=== PATIENT | male | born 1960 | race Caucasian/White ===

== ENCOUNTER → 2018-08-09 06:11 | Outpatient (CLI) | payer OTHER, SELFPAY ==
--- NOTE | 2018-08-09 14:29 | STRESSREP_ITS ---
Stress Test Report Pharmacologic myocardial perfusion stress test. 57-year-old male with a history of chest pain. Stress protocol: Resting EKG demonstrates sinus bradycardia with a rate of 56 bpm normal intervals are noted resting blood pressure 128/84 mmHg. 0.4 mg of regadenoson was infused per usual protocol followed by rapid intravenous saline flush i njection continuous EKG monitoring was performed. Patient maintained sinus rhythm throughout the recording. The maximum heart rate attained was 88 bpm which was 54% of maximum predicted heart rate the maximum workload attained was 1 metabolic equivalent. At rest there were no ST or T wave changes noted suggest ischemia at peak infusion nose nonspecific ST-T wave changes were noted the resting blood pressure 128/84. Myocardial perfusion protocol. 14.6 mCi of technetium 99m sestamibi was injected at rest. 0.4 mg of regadenoson was infused per usual protocol peak infusion 44.5 mCi of technetium 99m sestamibi was injected stress images were obtained stress and rest images were reconstructed and compared in the short axis vertical long horizontal long axis. Gated images were also obtained per Perfusion SPECT analysis: Review of the stress images demonstrate normal uptake of tracer noted in all areas of the myocardium. The resting images similarly demonstrate normal uptake of tracer noted in all areas of myocardium. Gated SPECT analysis: The gated ejection fraction is 68%. Conclusion: Normal pharmacologic myocardial perfusion stress test. Preserved ejection fraction.
== END ==
PROVIDERS: Family Provider Family Medicine; PCP Family Medicine; Referring Provider Family Medicine; Visit Provider Family Medicine
DX: R07.9 Chest pain, unspecified (principal)
CPT/HCPCS: 78452; 93017; A9500; A4216; J2785

== ENCOUNTER → 2018-08-18 17:09 | Outpatient (CLI) | payer OTHER, SELFPAY ==
[2016-04-10 07:18] VITALS: BMI 44.9
--- NOTE | 2018-08-18 17:12 | RAD_ITS ---
STUDY: X-RAY - RIGHT KNEE REASON FOR EXAM: Male, 57 years old. Arthritis. TECHNIQUE: 4 view(s) of the knee, 2 of which are labeled as weightbearing. COMPARISON: 4 views of the right knee October 20, 2016, 2 of which are labeled as weightbearing FINDINGS: Grossly stable mild periarticular spurring of the femoral condyles. Stable mild periarticular spurring of the tibial plateaus as well as mild spurring of the tibial spines. There is stable mild subarticular sclerosis of the medial tibial plateau. Normal visualized proximal fibula. There is stable periventricular spurring at the base of the patella, while periarticular spurring at the apex may be mildly progressed today. There is no demonstrated destructive osseous lesion or acute fracture. There is progression of degenerative arthrosis in the medial femorotibial compartment with moderately severe joint space narrowing. Normal lateral femorotibial compartment. There is mild to moderate degenerative arthrosis of the patellofemoral articulation, also progressed from previous exam. There is no demonstrated joint effusion. The soft tissue structures are unremarkable. RAD/Knee 4 or More Views IMPRESSION: Tricompartmental degenerative arthrosis of the right knee, with particular progression of narrowing in the medial femorotibial compartment since 2017. Electronically Signed: Justin Rankin MD at 18:35 EST , Service support ,
== END ==
PROVIDERS: Family Provider Family Medicine; PCP Family Medicine; Referring Provider Family Medicine; Visit Provider Family Medicine
DX: M19.90 Unspecified osteoarthritis, unspecified site (principal)
CPT/HCPCS: 73564

== ENCOUNTER → 2019-02-15 17:47 | Outpatient (CLI) | payer OTHER, SELFPAY ==
[2019-02-15 17:49] LABS: Bacteria 0 SEEN /hpf (None Seen); Squamous Epithelial Cells - UA 0 SEEN /hpf (0-5); White Blood Cells 0 SEEN /hpf (0-5)
[2019-02-15 18:12] LABS: Color, Urine Yellow (Yellow); Glucose, Dipstick Normal (Normal); Ketone-Dipstick 5 mg/dl (Negative); Leukocyte Esterase-Dipstick Negative /ul (Negative); Nitrite-Dipstick Negative (Negative); Occult Blood-Urine 150 /ul (Negative); Protein-Dipstick 30 mg/dl (Negative); Urine Bilirubin Dipstick Negative (Negative); Urine Clarity Clear (Clear); Urine Urobilinogen Normal (Normal)
[2019-02-15 18:23] LABS: Mucous, Urine 1+ /hpf (<or=2+); Red Blood Cells-Urine 0-5 SEEN /hpf (0-5)
== END ==
PROVIDERS: Family Provider Family Medicine; PCP Family Medicine; Referring Provider Family Medicine; Visit Provider Family Medicine
DX: R31.9 Hematuria, unspecified (principal)
CPT/HCPCS: 81001; 87086; 87088

== ENCOUNTER → 2019-02-17 05:49 | Outpatient (CLI) | payer OTHER, SELFPAY ==
[2016-04-10 07:18] VITALS: BMI 44.9
[2019-02-17 07:30] LABS: Erythrocyte Sedimentation Rate 8 mm/hr (0-20)
[2019-02-17 07:31] LABS: Absolute Lymphocyte Count 1.47 X10^3/uL (0.83-4.51); Absolute Neutrophil Count 2.9 X10^3/uL (2.0-7.7); Basophil# 0.05 X10^3/uL; Eosinophil# 0.11 X10^3/uL; Eosinophils% 2.1 % (0-5); Hematocrit 43.5 % (40-54); Hemoglobin 15.3 g/dL (13.0-16.5); Lymphocyte # 1.47 X10^3/ul (4.0); Lymphocyte % 28.2 % (19-41); Mean Corp Hgb Conc 35.2 g/dL (32-36); Mean Corpuscular Hgb 30.5 pg (27.0-32.0); Mean Corpuscular Volume 86.8 fL (80-94); Mean Platelet Vol. 9.6 fl (6.2-12.0); Monocyte# 0.63 X10^3/uL; Monocyte% 12.1 % (0-10); NRBC Flagged by Analyzer 0 % (0-5); Neutrophil # 2.93 X10^3/uL (2.7-7.7); Neutrophil % 56.2 % (47-70); Platelet Count 233 K/mm3 (150-450); RBC Distribution Width CV 12.6 % (11.6-14.6); RBC Distribution Width SD 39.9 fl (35.1-43.9); Red Blood Count 5.01 M/mm3 (4.6-6.2); White Blood Count 5.2 K/mm3 (4.4-11.0)
[2019-02-17 07:47] LABS: ALB/GLOB Ratio 0.9 RATIO (0.9-2.4); AST(SGOT) 24 U/L (15-37); Alanine Aminotransfer ALT/SGPT 48 U/L (16-61); Albumin, Serum 3.7 g/dL (3.2-5.0); Alkaline Phosphatase 56 U/L (45-117); Anion Gap 8 (5-15); BUN 15 mg/dL (7-18); BUN/Creat Ratio 17.8 RATIO (10-20); Calcium,Total 9.1 mg/dL (8.5-10.1); Chloride 109 mmol/L (98-107); Cholesterol 156 mg/dL (200); Creatinine, Serum 0.84 mg/dL (0.70-1.30); EST Glomerular Filtration Rate 99 mL/min (>60); Est Glom Filt Rate - Afr Amer 120 mL/min (>60); Globulin 3.9 g/dL (2.2-4.2); Glucose 118 mg/dL (74-106); High Density Lipoprotein 41 mg/dL; Iron 68 ug/dL (65-175); PSA,Total - Annual Screen 2.02 ng/mL (0.00-4.00); Potassium 4.4 mmol/L (3.5-5.1); Protein, Total 7.6 g/dL (6.4-8.2); Sodium Level 142 mmol/L (136-145); Thyroid Stim Hormone (TSH) 1.46 uIU/mL (0.358-3.74); Triglycerides 82 mg/dL; Very Low Density Lipoprotein 16 mg/dL (5-40)
[2019-02-17 08:27] LABS: Vitamin B12 381 pg/mL (211-911); Vitamin D,25 Hydroxy 22.5 ng/mL (29.95-100.01)
== END ==
PROVIDERS: Family Provider Family Medicine; PCP Family Medicine; Referring Provider Family Medicine; Visit Provider Family Medicine
DX: E11.9 Type 2 diabetes mellitus without complications (principal); R53.83 Other fatigue; Z12.5 Encounter for screening for malignant neoplasm of prostate
CPT/HCPCS: 36415; 80053; 80061; 82306; 82607; 83540; 84153; 84403; 84443; 85025; 85652; G0103

== ENCOUNTER → 2019-04-04 16:35 | Outpatient (CLI) | payer OTHER, SELFPAY ==
[2016-04-10 07:18] VITALS: BMI 44.9
--- NOTE | 2019-04-04 16:38 | RAD_ITS ---
STUDY: X-RAY CHEST REASON FOR EXAM: Male, 58 years old. Chest pain TECHNIQUE: PA and lateral views of the chest COMPARISON: None. FINDINGS: The lungs are clear. There are no pleural effusions. There is no pneumothorax. The heart is normal in size. The visualized osseous structures are within normal limits. RAD/Chest PA and Lateral IMPRESSION: No acute thoracic pathology. Electronically Signed: El Lambert, at 17:06 EDT Tel , Service support ,
== END ==
PROVIDERS: Family Provider Family Medicine; PCP Family Medicine; Referring Provider Family Medicine; Visit Provider Family Medicine
DX: R07.9 Chest pain, unspecified (principal)
CPT/HCPCS: 71046

== ENCOUNTER 2019-10-15 07:12 | Emergency (ER) | payer OTHER, SELFPAY ==
[2019-10-15 07:13] VITALS: BP 140/91; PULSE 86; RESP 14; TEMP 36.8; O2SAT 96; BMI 46.0
[2019-10-15 07:22] VITALS: O2SAT 96
--- NOTE | 2019-10-15 07:33 | RAD_ITS ---
STUDY: X-RAY CHEST REASON FOR EXAM: Male, 59 years old. DRY COUGH X 3 WEEKS, PAINFUL CHEST, FEVER TECHNIQUE: Single AP portable view of the chest. COMPARISON: April 04, 2019. FINDINGS: There are monitoring devices. The lungs are clear and expanded. There is no demonstrated pleural abnormality. Normal size heart. Normal mediastinum and alessandra. Normal visualized pulmonary arteries. Normal visualized aortic arch and descending thoracic aorta. There are diffuse degenerative changes of the visualized thoracic spine. There is degenerative osteoarthritis of the bilateral shoulders. There is no demonstrated abnormality of the visualized soft tissue structures of the upper abdomen. RAD/Chest 1 View (Portable) IMPRESSION: Degenerative changes, as described above. No demonstrated acute cardiopulmonary process. Electronically Signed: Feliberto Mosher MD at 8:52 EDT , Service support ,
--- NOTE | 2019-10-15 07:34 | EKG12_ITS ---
Test Reason : COUGH Blood Pressure : / mmHG Vent. Rate : 078 BPM Atrial Rate : 078 BPM P-R Int : 170 ms QRS Dur : 092 ms QT Int : 366 ms P-R-T Axes : 013 -26 006 degrees QTc Int : 417 ms Normal sinus rhythm Leftward axis Confirmed by KANE LEE, JOSELYN ([id number]), editor at large ANTHONY HONG ([id number]) on 10/18/2019 9:30:57 AM Referred By: GRACE Confirmed By:JOSELYN MIDDLETON MD
--- NOTE | 2019-10-15 07:46 | ED.DCSUM_ITS ---
- ER Visit Summary Date of Service: 10/15/19 Chief Complaint: [Cough and shortness of breath] History of Present Illness: The patient is a 59 M [presents to the emergency department with symptoms of cough and shortness of breath as well as fever for the last 3 weeks. Patient states that he has been unable to check his temperature because he has no thermometer and everywhere he is looked at by 1 has been sold out. Patient's been off work for 3 weeks. 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 Patient feels like sometimes he feels like he is getting better and then the fever comes back. He has had some shortness of breath off and on. He has had some mild chest discomfort off and on that results rather quickly. He denies recent travel or surgery. No history of PE or DVT. No cardiac history. Patient has been on treatment for diabetes and states that he is prediabetic. He is got history of obesity.] Patient concerned about COVID 19. Physical Examination: [HEENT-PERRLA, EOMI. Cranial nerves II through XII grossly intact. TMs clear. Mucous membranes moist. No adenopathy. Cardiovascular-regular rate and rhythm without murmur or ectopy Lungs-clear to auscultation, chest wall stable without crepitus or subcu e mphysema Abdomen-normoactive bowel sounds, soft, nontender, no rebound or rigidity, no peritoneal signs. Extremities-intact ?4, normal range of motion, normal pulses, atraumatic] Test Results: [EKG obtained on arrival shows sinus rhythm with a ventricular rate of 78 bpm with no acute segment changes. CBC with differential was normal. Chemistries unremarkable. Glucose was 149. Troponin was less than 0.015. D- dimer was normal at 0.37. Chest x-ray obtained read by myself as nothing acute and pending official radiology report.] Emergency Department Course and Treatment: [I discussed case with [facility] [place] [facility] who approved patient for COVID-19 testing.] Treatment Plan: [Advised not to work and self quarantine until he gets his test results back. Patient to return to the ER if increasing shortness of breath or condition should worsen anyway.] Disposition: [Discharged home in stable condition] Impression: [Viral URI] This note was generated with Misoation software. It may contain incorrect words, spelling, and punctuation that were not noted in review of the chart prior to signing ED Disposition - Plan for ED Patient: Referrals: Jesus Almanza MD [Primary Care Provider] -
[2019-10-15 07:56] LABS: Absolute Lymphocyte Count 1.15 X10^3/uL (0.83-4.51); Basophil# 0.04 X10^3/uL; Basophil% 0.9 % (0-1); Eosinophil# 0.07 X10^3/uL; Eosinophils% 1.5 % (0-5); Hematocrit 44.7 % (40-54); Hemoglobin 15.7 g/dL (13.0-16.5); Lymphocyte # 1.15 X10^3/ul (4.0); Lymphocyte % 24.6 % (19-41); Mean Corp Hgb Conc 35.1 g/dL (32-36); Mean Corpuscular Volume 85.5 fL (80-94); Mean Platelet Vol. 9.3 fl (6.2-12.0); Monocyte# 0.44 X10^3/uL; Monocyte% 9.4 % (0-10); NRBC Flagged by Analyzer 0 % (0-5); Neutrophil # 2.97 X10^3/uL (2.7-7.7); Neutrophil % 63.4 % (47-70); Platelet Count 213 K/mm3 (150-450); RBC Distribution Width CV 12.2 % (11.6-14.6); RBC Distribution Width SD 37.4 fl (35.1-43.9); Red Blood Count 5.23 M/mm3 (4.6-6.2); White Blood Count 4.7 K/mm3 (4.4-11.0)
[2019-10-15 08:10] LABS: D-Dimer Quantitative (DVT/PE) 0.37 FEU/ug/m (0.27-0.49)
[2019-10-15 08:14] LABS: Anion Gap 6 (5-15); BUN 13 mg/dL (7-18); BUN/Creat Ratio 12.7 RATIO (10-20); Calcium,Total 9.7 mg/dL (8.5-10.1); Chloride 108 mmol/L (98-107); Creatinine, Serum 1.02 mg/dL (0.70-1.30); EST Glomerular Filtration Rate 79 mL/min (>60); Est Glom Filt Rate - Afr Amer 96 mL/min (>60); Estimated Creatinine Clearance 82.03 ml/min; Glucose 149 mg/dL (74-106); Potassium 4.3 mmol/L (3.5-5.1); Sodium Level 139 mmol/L (136-145)
--- NOTE | 2019-10-15 08:21 | ED.DEP ---
ED Disposition - Plan for ED Patient: Instructions: ED Upper Resp Infec No Abx Tx Referrals: Jesus Almanza MD [Primary Care Provider] - 5-7 Days
[2019-10-15 09:03] VITALS: BP 129/58; PULSE 68; RESP 16; O2SAT 96
== END 2019-10-15 09:04 | disposition home or self-care (01) ==
LOC: ED 08:27
PROVIDERS: Emergency Provider Emergency Medicine; PCP Family Medicine
DX: J06.9 Acute upper respiratory infection, unspecified (principal); R73.03 Prediabetes; E66.9 Obesity, unspecified; Z68.42 Body mass index [BMI] 45.0-49.9, adult
CPT/HCPCS: 71045; 80048; 84484; 85025; 85379; 87635; 93005; 99284; A4216; U0004

== ENCOUNTER → 2020-11-04 16:06 | Outpatient (CLI) | payer OTHER, SELFPAY ==
[2020-11-04 18:31] LABS: ALB/GLOB Ratio 1.2 RATIO (0.9-2.4); AST(SGOT) 24 U/L (15-37); Alanine Aminotransfer ALT/SGPT 56 U/L (16-61); Albumin, Serum 4.1 g/dL (3.2-5.0); Alkaline Phosphatase 68 U/L (45-117); Anion Gap 8 (5-15); BUN 11 mg/dL (7-18); BUN/Creat Ratio 11.9 RATIO (10-20); Calcium,Total 9.1 mg/dL (8.5-10.1); Chloride 105 mmol/L (98-107); Cholesterol 174 mg/dL (200); Creatinine, Serum 0.92 mg/dL (0.70-1.30); EST Glomerular Filtration Rate 89 mL/min (>60); Est Glom Filt Rate - Afr Amer 107 mL/min (>60); Globulin 3.4 g/dL (2.2-4.2); Glucose 246 mg/dL (74-106); High Density Lipoprotein 43 mg/dL; Magnesium 1.9 mg/dL (1.6-2.6); Potassium 4.1 mmol/L (3.5-5.1); Protein, Total 7.5 g/dL (6.4-8.2); Sodium Level 137 mmol/L (136-145); Thyroid Stim Hormone (TSH) 1.58 uIU/mL (0.358-3.74); Triglycerides 148 mg/dL; Very Low Density Lipoprotein 30 mg/dL (5-40)
[2020-11-04 18:33] LABS: Vitamin B12 920 pg/mL (211-911); Vitamin D,25 Hydroxy 31.1 ng/mL
[2020-11-04 18:34] LABS: Hemoglobin A1c 8.6 % (3.8-5.6)
== END ==
PROVIDERS: PCP Family Medicine; Referring Provider Family Medicine; Visit Provider Family Medicine
DX: E11.9 Type 2 diabetes mellitus without complications (principal); E55.9 Vitamin D deficiency, unspecified; E53.8 Deficiency of other specified B group vitamins; R25.2 Cramp and spasm
CPT/HCPCS: 36415; 80053; 80061; 82306; 82607; 83036; 83735; 84403; 84443

== ENCOUNTER 2021-06-24 10:40 | Emergency (ER) | payer OTHER, SELFPAY ==
[2021-06-24 10:40] VITALS: BP 126/81; PULSE 72; RESP 18; TEMP 36.3; O2SAT 98; BMI 39.3
[2021-06-24 10:59] VITALS: RESP 18; O2SAT 97
--- NOTE | 2021-06-24 11:07 | RAD_ITS ---
INDICATION: COUGH AND BACK PAIN COVID + EXAMINATION/TECHNIQUE: X-RAY - XR Chest 1 View COMPARISON: 10/15/2019. FINDINGS: LINES/DEVICES: None. LUNGS: Prominence of the bronchovascular interstitial lung markings visualized bilaterally with scattered areas of patchy airspace opacification seen demonstrating increase in comparison to the prior studies. No evidence of infiltrate or consolidation. No evidence of pneumothorax or pleural effusion. This of parenchymal lung mass. MEDIASTINUM AND CARDIOVASCULAR STRUCTURES: Cardiac silhouette not enlarged. Central airways and mediastinal contour are unremarkable. BONES AND SOFT TISSUES: Unremarkable. IMPRESSION: Bronchovascular prominence with scattered areas of patchy airspace opacification consistent with the patient''s diagnosis of Covid 19 disease. Electronically Signed: Junior Gomez MD at 12:10 EST Tel , Service support , RAD/Chest 1 View (Portable)
[2021-06-24 11:28] VITALS: O2SAT 97
--- NOTE | 2021-06-24 11:47 | EKG12_ITS ---
Test Reason : BACK PAIN Blood Pressure : / mmHG Vent. Rate : 064 BPM Atrial Rate : 064 BPM P-R Int : 172 ms QRS Dur : 088 ms QT Int : 392 ms P-R-T Axes : 017 -34 020 degrees QTc Int : 404 ms Normal sinus rhythm Left axis deviation Abnormal ECG Confirmed by DIONTE LEE, KALYANI ([id number]), editorial writer YVROSE GILLESPIE ([id number]) on 06/26/2021 9:53:08 AM Referred By: JONATAN Confirmed By:KALYANI RAPP MD
--- NOTE | 2021-06-24 11:48 | EX.ED.DYSGE1 ---
HPI History of Present Illness Chief Complaint: Cold Sx Informant: patient Narrative Narrative: Patient comes in with some left posterior rib pain. He says it is developed over the last 2 or 3 days. It is a little worse when he lays back on it. It might be a little worse with motion. Deep breaths do not really seem to worsen it. He has been coughing for almost 2 weeks. But he states he does not feel sick at all. He has been exposed to Covid with several family members who are positive but he has not been tested. He did get maternal vaccines back in September. He states he does have nausea vomiting. He is coughing but not bringing up sputum. No hemoptysis. No leg or arm swelling or pain. No personal or family history of DVT or PE. No recent travel surgery or immobilization. [facility] Medical History Borderline diabetes Home Medications NK 10/15/19 [History Last Taken Unknown] Allergy/AdvReac Type Severity Reaction Status Date / Time No Known Allergies Allergy Verified 06/24/21 10:42 Surgical History History of inguinal hernia repair History of laparoscopic cholecystectomy History of umbilical hernia repair Social History Smoking Status: Never smoker ROS ROS ED Constitutional Constitutional ED: Denies chills or fever(s) Eyes Eyes: Denies blurry vision ENT ENT ED: Reports rhinorrhea; Denies sore throat Cardiovascular Cardiovascular: Reports chest pain; Denies palpitations Respiratory/Chest Respiratory/Chest: Reports cough; Denies dyspnea, dyspnea on exertion or sputum Gastrointestinal Gastrointestinal: Denies diarrhea, nausea or vomiting Genitourinary Genitourinary ED: Denies dysuria Musculoskeletal Musculoskeletal: Denies arthralgias or myalgias Integumentary Denies rash Neurologic Neurologic: Denies headache(s), paresthesias or weakness Psychiatric Psychiatric: Denies anxiety or depression Endocrine Endocrinology: Reports other Details: Patient had history of borderline diabetes. He was on Metformin. He used exercise and weight loss to get his hemoglobin A1c down to 6. He is off Metformin at this time. ; Denies polydipsia or polyuria Allergic/Immunologic Allergic/Immunologic ED: Denies mouth swelling or urticaria EXAM Physical Exam Const Vital Signs: 06/24/21 10:40 06/24/21 10:59 06/24/21 11:28 Temperature 97.3 F L Temperature Source Temporal Pulse Rate 72 Respiratory Rate 18 18 Respiratory Effort Normal Respiratory Depth Normal Respiratory Pattern Normal Blood Pressure 126/81 H Blood Pressure Mean 96 Pulse Ox 98 97 Oxygen Delivery Method Room Air Room Air Room Air Positive well nourished, well developed and obese General Appearance ED: well developed and NAD; Negative for cyanotic or diaphoretic Nutritional Appearance: obese HEENT Reports moist mucous membranes Eyes General Eye ED: Negative for pale conjunctiva or scleral icterus Neck no JVD Chest Wall inspection of chest normal Chest Narrative: Patient does have some mild tenderness to the posterior left chest wall. There is no rash erythema or vesicles. No subcu air. No crepitance. No indication of pain with a deep breath. Resp normal respiratory effort and clear to auscultation bilaterally Effort and Inspection: Negative for pain with movement Auscultation: Negative for rales, rhonchi or wheezes Cardio regular rate and regular rhythm GI normal to inspection, nondistended, normoactive bowel sounds and non-tender Palpation: soft Back/Spine no CVA tenderness Extremity General Extremety ED: Negative for edema or tenderness General Extremity: Negative for edema Neuro Sensorium / Orientation: alert Psych mental status grossly normal Skin no rashes or lesions noted MDM MDM MDM Narrative Medical decision making narrative: Patient CBC is unremarkable. D-dimer was high so we did get a CTA that showed no acute process. Electrolytes were unremarkable. Patient will use ice rest [id number] meds. He may be sore from positioning or coughing. He is comfortable with going home. He is not hypoxic. Covid is pending. Lab Data Attestation: I reviewed the patient's lab results. Labs: Laboratory Results - last 24 hr 06/24/21 06/24/21 06/24/21 12:20 12:20 12:20 WBC 4.7 RBC 5.25 Hgb 15.5 Hct 45.6 MCV 86.9 MCH 29.5 MCHC 34.0 RDW Std Deviation 39.6 RDW Coeff of Ryan 12.2 Plt Count 127 L MPV 9.9 Immature Gran % (Auto) 0.200 Neut % (Auto) 67.0 Lymph % (Auto) 21.1 Lander % (Auto) 10.9 H Eos % (Auto) 0.4 Baso % (Auto) 0.4 Absolute Neuts (auto) 3.1 Absolute Lymphs (auto) 0.99 Nucleated RBC % 0 Differential Comment SCANNED D-Dimer Quant (PE/DVT) 2.52 H* Sodium 138 Potassium 4.4 Chloride 103 Carbon Dioxide 26.0 Anion Gap 9 BUN 15 Creatinine 0.86 Estim Creat Clear Calc 99.01 Est GFR (MDRD) Af Amer 117 Est GFR (MDRD) Non-Af 97 BUN/Creatinine Ratio 17.5 Glucose 111 H Calcium 9.3 Radiography Diagnostic Testing: Clinical Impression(s) from Imaging Studies Chest X-Ray 06/24/21 11:07 Chest CTA 06/24/21 12:55 IMPRESSION: No central or segmental pulmonary embolism. Electronically Signed: Lowell Tuttle MD (Brooks) at 13:38 EST , Service support , Discharge Plan Triage Chief Complaint: Cold Sx ED Provider: Tone Carney Dx/Rx/DC Orders Clinical Impression: Left-sided chest wall pain Instructions: ED Chest Pain, Uncertain Cause Prescriptions: No Action NK RF: 0 Primary Care Provider: Jesus Almanza Referrals: Jesus Almanza MD [Primary Care Provider] - 3-5 Days if not improving Disposition Disposition: Home, Self Care
[2021-06-24 12:41] LABS: Absolute Lymphocyte Count 0.99 X10^3/uL (0.83-4.51); Absolute Neutrophil Count 3.1 X10^3/uL (2.0-7.7); Basophil# 0.02 X10^3/uL; Basophil% 0.4 % (0-1); Eosinophil# 0.02 X10^3/uL; Eosinophils% 0.4 % (0-5); Hematocrit 45.6 % (40-54); Hemoglobin 15.5 g/dL (13.0-16.5); Lymphocyte # 0.99 X10^3/ul (0.83-4.51); Lymphocyte % 21.1 % (19-41); Mean Corpuscular Hgb 29.5 pg (27.0-32.0); Mean Corpuscular Volume 86.9 fL (80-94); Mean Platelet Vol. 9.9 fl (6.2-12.0); Monocyte# 0.51 X10^3/uL; Monocyte% 10.9 % (0-10); NRBC Flagged by Analyzer 0 % (0-5); Neutrophil # 3.14 X10^3/uL (2.7-7.7); POSITIVE COUNT YES; Platelet Count 127 K/mm3 (150-450); RBC Distribution Width CV 12.2 % (11.6-14.6); RBC Distribution Width SD 39.6 fl (35.1-43.9); Red Blood Count 5.25 M/mm3 (4.6-6.2); White Blood Count 4.7 K/mm3 (4.4-11.0)
[2021-06-24 12:42] LABS: Anion Gap 9 (5-15); BUN 15 mg/dL (7-18); BUN/Creat Ratio 17.5 RATIO (10-20); Calcium,Total 9.3 mg/dL (8.5-10.1); Chloride 103 mmol/L (98-107); Creatinine, Serum 0.86 mg/dL (0.70-1.30); EST Glomerular Filtration Rate 97 mL/min (>60); Est Glom Filt Rate - Afr Amer 117 mL/min (>60); Estimated Creatinine Clearance 99.01 ml/min; Glucose 111 mg/dL (74-106); Potassium 4.4 mmol/L (3.5-5.1); Sodium Level 138 mmol/L (136-145)
[2021-06-24 12:54] LABS: D-Dimer Quantitative (DVT/PE) 2.52 FEU/ug/m (0.27-0.49)
--- NOTE | 2021-06-24 12:55 | CT_ITS ---
STUDY: CTA CHEST REASON FOR EXAM: Male, 60 years old. chest pain RADIATION DOSAGE (If Supplied By Facility): CTDIvol = ( 12.66 ) mGy, DLP = ( 567.16 ) mGycm TECHNIQUE: The examination was performed with the intravenous administration of IV 100mL Isovue-370. Post-processing of the angiographic images was performed, with multiplanar reformation and 3D reconstruction. Individualized dose optimization techniques were used for this CT. COMPARISON: None. FINDINGS: Normal enhancement of the main pulmonary artery and right and left pulmonary arteries. Normal enhancement of the bilateral peripheral pulmonary arteries. There is no demonstrated pulmonary embolism. Normal thoracic aorta and visualized great vessels. There is no demonstrated aortic dissection. Normal heart and pericardium. Normal mediastinum. Normal hilar regions. Normal visualized trachea and bronchi. The lungs are well expanded. Normal pulmonary parenchyma. Normal pleura. Normal chest wall structures. Old left rib fractures. Normal visualized upper abdomen. CT/CTA Chest W/WO Contrast IMPRESSION: No central or segmental pulmonary embolism. Electronically Signed: Lowell Tuttle MD (Brooks) at 13:38 EST , Service support ,
[2021-06-24 13:08] LABS: Differential Indicated SCAN CRITERIA MET
[2021-06-24 13:10] LABS: Differential Comment SCANNED
[2021-06-24 14:58] VITALS: BP 124/78; PULSE 87; RESP 16; O2SAT 97
== END 2021-06-24 14:58 | disposition home or self-care (01) ==
PROVIDERS: Emergency Provider Emergency Medicine; PCP Family Medicine
DX: R07.89 Other chest pain (principal); R73.03 Prediabetes; E66.9 Obesity, unspecified; Z68.39 Body mass index [BMI] 39.0-39.9, adult; Z20.822 Contact with and (suspected) exposure to COVID-19
CPT/HCPCS: 71045; 71275; 80048; 85025; 85379; 87635; 93005; 94760; 99285; Q9967; U0005; A4216; U0003

== ENCOUNTER 2022-07-16 21:42 | Emergency (ER) | payer OTHER, SELFPAY ==
[2022-07-16 21:44] VITALS: BP 117/82; PULSE 66; RESP 18; TEMP 36.4; O2SAT 97; BMI 40.6
--- NOTE | 2022-07-16 22:16 | EKG12_ITS ---
Test Reason : DYSRHYTHMIA Blood Pressure : / mmHG Vent. Rate : 063 BPM Atrial Rate : 063 BPM P-R Int : 172 ms QRS Dur : 092 ms QT Int : 396 ms P-R-T Axes : 018 -21 002 degrees QTc Int : 405 ms Normal sinus rhythm Normal ECG Confirmed by DIONTE LEE, KALYANI ([id number]), book editor BOZENA HOOD ([id number]) on 07/20/2022 10:37:16 AM Referred By: KENIA Confirmed By:KALYANI RAPP MD
--- NOTE | 2022-07-16 22:21 | RAD_ITS ---
INDICATION: Chest pain EXAMINATION/TECHNIQUE: X-RAY - XR Chest 1 View COMPARISON: 06/24/2021 FINDINGS: LINES/DEVICES: None. LUNGS: Chronically coarsened bilateral mid to lower lung markings. No consolidation, edema or effusion. No pneumothorax. MEDIASTINUM AND CARDIOVASCULAR STRUCTURES: Cardiac silhouette not enlarged. Central airways and mediastinal contour are unremarkable. RAD/Chest 1 View (Portable) IMPRESSION: No radiographic evidence of acute cardiopulmonary disease. Electronically Signed: Alan Fernandez MD at 22:50 EST ,
[2022-07-16 22:26] LABS: Absolute Lymphocyte Count 1.64 X10^3/uL (0.83-4.51); Absolute Neutrophil Count 5.9 X10^3/uL (2.0-7.7); Basophil# 0.05 X10^3/uL; Basophil% 0.6 % (0-1); Eosinophil# 0.09 X10^3/uL; Eosinophils% 1.1 % (0-5); Hematocrit 46.7 % (40-54); Hemoglobin 15.5 g/dL (13.0-16.5); Lymphocyte # 1.64 X10^3/ul (0.83-4.51); Lymphocyte % 19.4 % (19-41); Mean Corp Hgb Conc 33.2 g/dL (32-36); Mean Corpuscular Hgb 29.7 pg (27.0-32.0); Mean Corpuscular Volume 89.5 fL (80-94); Mean Platelet Vol. 9.8 fl (6.2-12.0); Monocyte# 0.79 X10^3/uL; Monocyte% 9.3 % (0-10); NRBC Flagged by Analyzer 0 % (0-5); Neutrophil # 5.88 X10^3/uL (2.7-7.7); Neutrophil % 69.4 % (47-70); Platelet Count 244 K/mm3 (150-450); RBC Distribution Width CV 12.4 % (11.6-14.6); RBC Distribution Width SD 40.5 fl (35.1-43.9); Red Blood Count 5.22 M/mm3 (4.6-6.2); White Blood Count 8.5 K/mm3 (4.4-11.0)
[2022-07-16 22:44] LABS: Anion Gap 6 (5-15); BUN 15 mg/dL (7-18); BUN/Creat Ratio 16.9 RATIO (10-20); CPK Total, Creatine Kinase 227 U/L (39-308); Calcium,Total 9.9 mg/dL (8.5-10.1); Chloride 112 mmol/L (98-107); Creatinine, Serum 0.89 mg/dL (0.70-1.30); EST Glomerular Filtration Rate 92 mL/min (>60); Est Glom Filt Rate - Afr Amer 111 mL/min (>60); Estimated Creatinine Clearance 94.46 ml/min; Glucose 107 mg/dL (74-106); Magnesium 2.3 mg/dL (1.6-2.6); Sodium Level 142 mmol/L (136-145); Troponin-I HS 4 pg/mL (3.0-78.0)
--- NOTE | 2022-07-16 23:07 | EDS_ITS ---
HPI History of Present Illness Chief Complaint: General Illness Narrative Narrative: Patient is a 61-year-old male with past medical history of choledocholithiasis as well as prediabetes and degenerative disc disease in his cervical spine. Reportedly he went out to have a few drinks with coworkers after work. Family states when he returned home he appeared to be fatigued which they thought could have been related to him having some alcohol but then had a brief period where he was unresponsive. They state there is no tonic-clonic shaking and that when EMS arrived the patient knew who he was and where he was at. The patient does admit to alcohol use tonight but denies any illicit drug use. He states has been having intermittent short-lived chest pain over the past few days but denies any pain at this time. He states he is unsure if tonight's episode was related to his blood sugar or the previous bouts of chest pain. He also states that he will occasionally get severe spasms in his legs which typically occur at night when he is trying to sleep. He denies any active pain at this time he denies any loss of bowel or bladder control or IV drug use and denies any statin use. However with the reported syncopal event this evening and the fact he is been feeling unwell for a few days he was brought in for evaluation [facility] Medical History Borderline diabetes Home Medications NK 10/15/19 [History Last Taken Unknown] Allergy/AdvReac Type Severity Reaction Status Date / Time No Known Allergies Allergy Verified 06/24/21 10:42 Surgical History History of inguinal hernia repair History of laparoscopic cholecystectomy History of umbilical hernia repair Social History Smoking Status: Never smoker ROS ROS ED Constitutional Constitutional ED: Denies chills or fever(s) Eyes Eyes: Denies change in vision ENT ENT ED: Denies sore throat Cardiovascular Cardiovascular: Reports chest pain; Denies palpitations or racing heartbeat Respiratory/Chest Respiratory/Chest: Denies cough or dyspnea Gastrointestinal Gastrointestinal: Denies abdominal pain, diarrhea, nausea or vomiting Genitourinary Genitourinary ED: Denies dysuria Musculoskeletal Musculoskeletal: Reports other Details: Positive bilateral leg pain ; Denies myalgias Integumentary Denies rash Neurologic Neurologic: Denies headache(s), paresthesias or weakness Hematologic/Lymphatic Hematologic/Lymphatic: Denies easy bleeding or easy bruising EXAM Physical Exam Const Vital Signs: 07/16/22 21:44 07/16/22 21:48 07/16/22 23:15 Temperature 97.5 F L Temperature Source Oral Pulse Rate 66 69 Respiratory Rate 18 15 Respiratory Effort Normal Non-Labored Respiratory Pattern Normal Blood Pressure 117/82 H 117/72 Blood Pressure Mean 93 Pulse Ox 97 98 Oxygen Delivery Method Room Air Positive well nourished, well developed and obese General Appearance ED: well developed Nutritional Appearance: obese HEENT Reports dry mucous membranes Mouth ED: Yes dry mucous membranes Mouth: dry mucous membranes Eyes PERRL and EOMs intact bilaterally Neck supple Neck Narrative: No nuchal rigidity or meningeal signs noted Resp normal respiratory effort and clear to auscultation bilaterally Cardio regular rate and regular rhythm Rate: other Other Details: Radial pulses are plus 2 out of 4 bilaterally are equal and symmetric GI normal to inspection, nondistended, normoactive bowel sounds, non-tender, non- distended and no masses GI Narrative: No voluntary guarding or rigidity no pulsatile mass Auscultation: normoactive bowel sounds Palpation: soft Back/Spine Back/Spine Narrative: No bony deformity or step-off of the thoracic or lumbar spine no midline pain with palpation. No saddle anesthesia. Negative straight leg raise. No clonus or Babinski. Patellar reflexes are plus 1 out of 4 bilaterally Extremity normal to inspection Extremity Narrative: Bilateral lower extremities are neurovascularly intact. No asymmetric edema no pitting edema negative Homans' sign bilaterally Neuro oriented x3 and CN's II-XII intact bilaterally Neuro Narrative: Cranial nerves II through XII are grossly intact no focal neurologic deficit. No pronator drift no dysmetria no truncal ataxia. NIH stroke scale score of 0. Sensorium / Orientation: alert Psych Psych Narrative: Patient has a flat affect Skin no rashes or lesions noted MDM MDM MDM Narrative Medical decision making narrative: Patient presented to the ER with stable vitals and was awake and alert with normal neurologic exam. He had multiple complaint but as he is a man of the age of 39 obese and history of prediabetes I did have concern for possible cardiac disease especially with this questionable syncopal event so basic work-up was obtained. He did not strike his head or have any signs of trauma, he denies headache, and he has a normal neurologic exam and therefore did not feel need for head CT. Blood work revealed normal H&H no leukocytosis normal kidney function and electrolytes and no signs of DKA or HHS. Troponin was also normal at 4 and with his report of recurrent leg pain/spasms a CPK level was added which was normal. He was kept on the monitor and remained in normal sinus rhythm. On reevaluation vitals are stable he is resting comfortably his neuro exam remains normal. Therefore at this time as physical exam does not show changes consistent for acute CVA and blood work does not show changes concerning for anemia infection acute kidney injury electrolyte derangement cardiac event or rhabdomyolysis I do not feel there is need for further work-up. Patient will be discharged home and can follow-up with his family doctor on an outpatient basis. The plan of care was discussed with the patient and family and they are agreeable to this Lab Data Attestation: I reviewed the patient's lab results. Labs: Laboratory Results - last 24 hr 07/16/22 07/16/22 22:20 22:20 WBC 8.5 RBC 5.22 Hgb 15.5 Hct 46.7 MCV 89.5 MCH 29.7 MCHC 33.2 RDW Std Deviation 40.5 RDW Coeff of Ryan 12.4 Plt Count 244 MPV 9.8 Immature Gran % (Auto) 0.200 Neut % (Auto) 69.4 Lymph % (Auto) 19.4 Blaine % (Auto) 9.3 Eos % (Auto) 1.1 Baso % (Auto) 0.6 Absolute Neuts (auto) 5.9 Absolute Lymphs (auto) 1.64 Nucleated RBC % 0 Sodium 142 Potassium 4.0 Chloride 112 H Carbon Dioxide 24.0 Anion Gap 6 BUN 15 Creatinine 0.89 Estim Creat Clear Calc 94.46 Est GFR (MDRD) Af Amer 111 Est GFR (MDRD) Non-Af 92 BUN/Creatinine Ratio 16.9 Glucose 107 H Calcium 9.9 Magnesium 2.3 Total Creatine Kinase 227 Troponin I High Sens 4 Radiography Diagnostic Testing: Clinical Impression(s) from Imaging Studies Chest X-Ray 07/16/22 22:21 IMPRESSION: No radiographic evidence of acute cardiopulmonary disease. Electronically Signed: Alan Fernandez MD at 22:50 EST , 1 view chest x-ray as interpreted by the emergency medicine physician reveals no acute infiltrate pneumothorax or pleural effusion Discharge Plan Triage Chief Complaint: General Illness Other Complaint: Hyperglycemia ED Provider: Kiko Selby Dx/Rx/DC Orders Clinical Impression: Nonspecific chest pain, Syncope, Prediabetes Instructions: Dizziness Fainting Causes, ED Chest Pain, Uncertain Cause Prescriptions: No Action NK Primary Care Provider: Jesus Almanza Referrals: Jesus Almanza MD [Primary Care Provider] - Activity Restrictions/Additional Instructions: Please talk to your family doctor about an outpatient stress test based on your recurrent intermittent bouts of chest pain with negative work-up today in the ER. If you have any further concerns please return for repeat evaluation Disposition Disposition: Home, Self Care Discharge Date/Time: 07/16/22 23:15
[2022-07-16 23:15] VITALS: BP 117/72; PULSE 69; RESP 15; O2SAT 98
== END 2022-07-16 23:15 | disposition home or self-care (01) ==
PROVIDERS: Emergency Provider Emergency Medicine; PCP Family Medicine; Visit Provider Emergency Medicine
DX: R07.9 Chest pain, unspecified (principal); R55 Syncope and collapse; R73.03 Prediabetes; M50.30 Other cervical disc degeneration, unspecified cervical region; E66.9 Obesity, unspecified
CPT/HCPCS: 71045; 80048; 82550; 83735; 84484; 85025; 93005; 99285

== ENCOUNTER → 2022-07-24 | Outpatient (CLI) | payer OTHER, SELFPAY ==
--- NOTE | 2022-07-24 15:22 | RAD_ITS ---
STUDY: X-RAY - ACUTE ABDOMINAL SERIES REASON FOR EXAM: Male, 61 years old. Abdominal pain. TECHNIQUE: Single view of the chest. Supine, and erect view(s) of the abdomen were obtained. COMPARISON: Chest, July 16, 2022. CT of the abdomen, March 17, 2016. FINDINGS: The lungs are clear and expanded. Normal size heart. Normal mediastinum and alessandra. Normal visualized pulmonary arteries. Normal visualized aortic arch and descending thoracic aorta. Air and feces is seen throughout a nondistended colon. There is no small bowel dilatation or evidence of obstruction. No free air. The soft tissue structures of the abdomen and pelvis are unremarkable. Degenerative changes of the lumbar spine. RAD/Acute Abdomen Inc Chest IMPRESSION: 1. No acute cardiopulmonary disease or major interval change. 2. Increased colonic feces suggesting constipation. Electronically Signed: Kendell Aviles DO at 18:16 EST ,
== END | disposition home or self-care (01) ==
LOC: MTRAD 15:20
PROVIDERS: PCP Family Medicine; Referring Provider Family Medicine; Visit Provider Family Medicine
DX: R10.9 Unspecified abdominal pain (principal)
CPT/HCPCS: 74022

== ENCOUNTER → 2022-07-28 | Outpatient (CLI) | payer OTHER, SELFPAY ==
[2022-07-28 18:15] LABS: Erythrocyte Sedimentation Rate 9 mm/hr (0-20)
[2022-07-28 18:17] LABS: Absolute Lymphocyte Count 2.06 X10^3/uL (0.83-4.51); Absolute Neutrophil Count 3.1 X10^3/uL (2.0-7.7); Basophil# 0.07 X10^3/uL; Basophil% 1.2 % (0-1); Eosinophils% 1.7 % (0-5); Hematocrit 42.3 % (40-54); Hemoglobin 14.6 g/dL (13.0-16.5); Lymphocyte # 2.06 X10^3/ul (0.83-4.51); Lymphocyte % 34.6 % (19-41); Mean Corp Hgb Conc 34.5 g/dL (32-36); Mean Corpuscular Hgb 29.6 pg (27.0-32.0); Mean Corpuscular Volume 85.6 fL (80-94); Mean Platelet Vol. 9.8 fl (6.2-12.0); Monocyte% 10.1 % (0-10); NRBC Flagged by Analyzer 0 % (0-5); Neutrophil % 52.1 % (47-70); Platelet Count 257 K/mm3 (150-450); RBC Distribution Width CV 12.2 % (11.6-14.6); RBC Distribution Width SD 37.7 fl (35.1-43.9); Red Blood Count 4.94 M/mm3 (4.6-6.2)
[2022-07-28 18:30] LABS: ALB/GLOB Ratio 1.4 RATIO (0.9-2.4); AST(SGOT) 19 U/L (15-37); Alanine Aminotransfer ALT/SGPT 25 U/L (16-61); Albumin, Serum 4.2 g/dL (3.2-5.0); Alkaline Phosphatase 46 U/L (45-117); Anion Gap 9 (5-15); BUN 22 mg/dL (7-18); BUN/Creat Ratio 22.4 RATIO (10-20); Calcium,Total 9.8 mg/dL (8.5-10.1); Chloride 107 mmol/L (98-107); Creatinine, Serum 0.98 mg/dL (0.70-1.30); EST Glomerular Filtration Rate 82 mL/min (>60); Est Glom Filt Rate - Afr Amer 99 mL/min (>60); Glucose 92 mg/dL (74-106); Potassium 4.3 mmol/L (3.5-5.1); Protein, Total 7.2 g/dL (6.4-8.2); Sodium Level 141 mmol/L (136-145)
== END | disposition home or self-care (01) ==
LOC: MFPLAB 15:40
PROVIDERS: PCP Family Medicine; Referring Provider Family Medicine; Visit Provider Family Medicine
DX: R10.9 Unspecified abdominal pain (principal)
CPT/HCPCS: 36415; 80053; 85025; 85652

== ENCOUNTER → 2022-09-23 | Outpatient (CLI) | payer OTHER, SELFPAY ==
[2022-09-23 18:46] LABS: Vitamin B12 1035 pg/mL (211-911); Vitamin D,25 Hydroxy 67.2 ng/mL
[2022-09-23 18:55] LABS: Cholesterol 158 mg/dL (200); High Density Lipoprotein 36 mg/dL; Triglycerides 219 mg/dL; Very Low Density Lipoprotein 44 mg/dL (5-40)
== END | disposition home or self-care (01) ==
LOC: MFPLAB 16:29
PROVIDERS: PCP Family Medicine; Referring Provider Family Medicine; Visit Provider Family Medicine
DX: E11.9 Type 2 diabetes mellitus without complications (principal); E55.9 Vitamin D deficiency, unspecified; Z12.5 Encounter for screening for malignant neoplasm of prostate
CPT/HCPCS: 36415; 80061; 82306; 82607; 84153; 84403; G0103

== ENCOUNTER → 2023-01-20 | Outpatient (CLI) | payer OTHER, SELFPAY ==
--- NOTE | 2023-01-20 16:22 | RAD_ITS ---
EXAM: XR CERVICAL SPINE, 4 OR 5 VIEWS CLINICAL INDICATION: BACK PAIN TECHNIQUE: Frontal, lateral and bilateral oblique views of the cervical spine. COMPARISON: No relevant prior studies available. FINDINGS: VERTEBRAE: No compression fracture, posterior element fracture or facet dislocation. The odontoid is intact. No spondylolisthesis. Preservation of the normal cervical lordosis. Cervical facet arthritis, greatest at the C2/3 and C3/4 levels. DISC SPACES: Cervical disc spaces are maintained. There is mild degenerative spurring about the C3/4, C4/5 and C5/6 levels. SOFT TISSUES: Vascular calcification is present within the neck. No prevertebral soft tissue widening. LUNG APICES: Clear. Visualized upper ribs are intact. OTHER: The maxillary antra are clear. RAD/Cerv Spine 4 or 5 Views IMPRESSION: Cervical facet arthritis. No evidence of acute fracture or spondylolisthesis. Electronically Signed: Nilesh Martinez MD at 2:30 EDT ,
--- NOTE | 2023-01-20 16:25 | RAD_ITS ---
EXAM: XR RIGHT KNEE COMPLETE, 4 OR MORE VIEWS CLINICAL INDICATION: pain TECHNIQUE: Four or more views of the right knee. COMPARISON: Previous right knee radiographs of 08/18/2018. FINDINGS: BONES/JOINTS: Medial compartment shows severe degenerative narrowing, more severe than on the prior study; there is increasing subchondral sclerosis and marginal osteophytosis about the medial compartment. Lateral joint space is relatively preserved; there is increasing degenerative spurring about the lateral compartment. There is also increasing degenerative spurring about the patellofemoral joint space . No acute fracture or dislocation identified. No suprapatellar knee effusion. SOFT TISSUES: There is increasing soft tissue calcification paralleling the cortex of the lateral femoral condyle, consistent with ligamentous calcification in the region of the lateral collateral ligament. No soft tissue swelling or gas. No radiopaque foreign body. RAD/Knee 4 or More Views IMPRESSION: Tricompartmental degenerative osteoarthritis of the right knee, with increasing degenerative spurring about all 3 compartments and with worsening severe degenerative narrowing of the medial compartment. Electronically Signed: Nilesh Martinez MD at 1:16 EDT ,
== END | disposition home or self-care (01) ==
PROVIDERS: PCP Family Medicine; Referring Provider Family Medicine; Visit Provider Family Medicine
DX: M17.11 Unilateral primary osteoarthritis, right knee (principal); M50.90 Cervical disc disorder, unspecified, unspecified cervical region
CPT/HCPCS: 72050; 73564

== ENCOUNTER → 2023-06-02 | Outpatient (CLI) | payer OTHER, SELFPAY ==
[2023-06-10 11:09] LABS: PSA, Free 1.47 ng/mL; PSA, Free % 9.1 % (.); Testosterone, % Free 1.37 % (1.50-4.20); Testosterone, Free 3.89 ng/dL (5.00-21.00); Testosterone, Total 284 ng/dL (264-916)
== END | disposition home or self-care (01) ==
LOC: MFPLAB 11:57
PROVIDERS: PCP Family Medicine; Visit Provider Family Medicine
DX: R97.20 Elevated prostate specific antigen [PSA] (principal)
CPT/HCPCS: 36415; 84153; 84154; 84402; 84403

== ENCOUNTER → 2023-08-10 | Outpatient (CLI) | payer OTHER, SELFPAY ==
--- NOTE | 2023-08-10 | IMM_PTH ---
PATHOLOGY RESULTS PATIENT: SAMARIA PALAFOX LOC: [facility] U#:[id number] AGE/SX: 62/M ROOM: RE08/10/[address]: Dr. Laith Kelly MD : 1960 BED: DIS: 08/10/2023 SPEC #: [id number] RECD: 08/12/23 10:43 STATUS: KAREN REQ #: [id number] VANNA: 08/10/23 00:[address]: Laith Kelly DEPT: IMMUNOHISTOCHEMISTRY RECD BY: Ilana Sandoval ENTERED: 08/12/23 10:45 SP TYPE: IMMUNO OTHR DR: Dr. Jeferson Almanza MD Tissues: PROSTATE RIGHT PROSTATE LEFT Procedures: 34BE12 (add) P40 (add) 34BE12 (initial) PHYSICIAN & INSTITUTION [place] [id number] SPECIMEN INFORMATION: Tissue Source: A - Right prostate, apex, core biopsy, F - Left prostate, base, core biopsy Clinical Info: Elevated PSA Specimen Number: [id number] A & F CPT code: 24775, 19775 x3 METHODOLOGY: Deparaffinized sections of prefer/formalin-fixed tissue or PAP/DQ stained slides are incubated with monoclonal/polyclonal antibodies/oligonucleotide probes. Localization is made via biotin free immunoperoxidase method. Appropriate controls are performed and reacted as expected. Results on target cell population are indicated in the following table: RESULTS: ANTIBODY / CLONE RESULT Block A P40 (BC28) negative* 34BE12 (34BE12) negative* Block F P40 (BC28) negative 34BE12 (34BE12) negative * Positive in the area of high-grade prostatic intraepithelial neoplasia (HGPIN). These tests were developed and their performance characteristics determined by [facility]. They may not have been cleared or approved by the U.S. Food and Drug Administration. The FDA has determined that such clearance or approval is not necessary. The above immunohistochemical/dualISH markers are ordered and reviewed by the Pathologist. INTERPRETATION: A. Right prostate, apex, core biopsy: A minute focus of adenocarcinoma. Focal high-grade prostatic intraepithelial neoplasia (HGPIN). F. Left prostate, base, core biopsy: Adenocarcinoma SJ/bl 08/13/23
--- NOTE | 2023-08-10 08:00 | PROSBIL_PTH ---
PATHOLOGY RESULTS PATIENT: SAMARIA PALAFOX LOC: [facility] U#:[id number] AGE/SX: 62/M ROOM: RE08/10/[address]: Dr. Laith Kelly MD : 1960 BED: DIS: 08/10/2023 SPEC #: [id number] RECD: 08/11/23 08:09 STATUS: KAREN REPao #: [id number] VANNA: 08/10/23 08:[address]: Laith Kelly DEPT: SURGICAL PATHOLOGY RECD BY: Brina Steven ENTERED: 08/11/23 08:10 SP TYPE: PROST BX RAUL DR: Dr. Jeferson Almanza MD Tissues: PROSTATE RIGHT PROSTATE RIGHT PROSTATE RIGHT PROSTATE LEFT PROSTATE LEFT PROSTATE LEFT Procedures: PROSTATE BX HEADER OPERATION: Prostate biopsy PRE-OP DIAGNOSIS: Elevated PSA TISSUE SUBMITTED: A - Right apex, B - Right mid, C - Right base, D - Left apex, E - Left mid, F - Left base MICROSCOPIC DIAGNOSIS A. Right prostate, apex, core biopsy: A minute focus of prostatic adenocarcinoma. [place] grade: 3+3=6 Number of cores involved: 1/1 Proportion of tissue involved: <5% Perineural invasion: Not identified. Greatest tumor length: <0.1 cm Focal high-grade prostatic intraepithelial neoplasia (HGPIN). See comment. B. Right prostate, mid, core biopsy: Prostatic tissue, negative for malignancy Chronic inflammation and mild acute inflammation. C. Right prostate, base, core biopsy: Focal high-grade prostatic intraepithelial neoplasia (HGPIN). D. Left prostate, apex, core biopsy: Prostatic adenocarcinoma. [place] grade: 3+4=7 Number of cores involved: 1/1 Proportion of tissue involved: ~40% Perineural invasion: Not identified. Greatest tumor length: 0.7 cm E. Left prostate, mid, core biopsy: Prostatic adenocarcinoma. [place] grade: 3+3=6 Number of cores involved: 1/2 Proportion of tissue involved: ~30% Perineural invasion: Not identified. Greatest tumor length: 1.7 cm, discontinuous F. Left prostate, base, core biopsy: Prostatic adenocarcinoma. [place]ac grade: 3+3=6 Number of cores involved: 1/2 Proportion of tissue involved: ~10% Perineural invasion: Not identified. Greatest tumor length: 0.4 cm. See comment. SJ:deb 08/12/2023 COMMENT A & F. Immunohistochemistry ([id number]) supports the above diagnosis. Case has been reviewed in consultation with Dr. Spears who concurs with the above diagnosis. IDC:AM MICROSCOPIC DESCRIPTION Slides are reviewed. GROSS DESCRIPTION A - Received is one container designated prostate, right apex. The specimen consists of one elongated fragment of light cerna-white soft tissue measuring 1.0 cm in length and 0.1 cm in diameter. The specimen is totally submitted in one cassette. B - Received is one container designated prostate, right mid. The specimen consists of three elongated fragments of light cerna-white soft tissue measuring 0.9 to 1.5 cm in length and 0.1 cm in diameter. The specimen is totally submitted in one cassette. C - Received is one container designated prostate, right base. The specimen consists of two elongated fragments of light cerna-white soft tissue each measuring 1.5 cm in length and 0.1 cm in diameter. The specimen is totally submitted in one cassette. D - Received is one container designated prostate, left apex. The specimen consists of one elongated fragment of light cerna-white soft tissue measuring 1.9 cm in length and 0.1 cm in diameter. The specimen is totally submitted in one cassette. E - Received is one container designated prostate, left mid. The specimen consists of two elongated fragments of light cerna-white soft tissue measuring 1.4 and 1.9 cm in length and 0.1 cm in diameter. The specimen is totally submitted in one cassette. F - Received is one container designated prostate, left base. The specimen consists of two elongated fragments of light cerna-white soft tissue measuring 1.4 and 1.7 cm in length and 0.1 cm in diameter. The specimen is totally submitted in one cassette. / BRADEN:deb 08/11/2023 TC:0 [facility]: [id number] x6
== END | disposition home or self-care (01) ==
LOC: LABSPEC 16:44
PROVIDERS: PCP Family Medicine; Referring Provider Urology; Visit Provider Urology
DX: C61 Malignant neoplasm of prostate (principal)
CPT/HCPCS: 88305; 88341; 88342; G0416

== ENCOUNTER → 2023-08-25 | Outpatient (CLI) | payer OTHER, SELFPAY ==
--- NOTE | 2023-08-25 08:48 | NM_ITS ---
CLINICAL: 62-year-old male with history of primary prostate carcinoma presenting for initial evaluation. WHOLE BODY 99m Tc MDP RADIONUCLIDE BONE SCINTIGRAPHY COMPARISON: None available FINDINGS: Following the intravenous administration of 27.7 mCi of 99m Tc MDP, whole body bone images reveal: 1. Increased uptake is defined in the femoral and tibial components of the recently operated right knee prosthesis. 2. Facilitated uptake is noted in the mid cervical spine posteriorly on the left, fifth lumbar vertebra posteriorly on the left, the patellofemoral and medial tibial and femoral compartments of the left knee, the bilateral midfoot, the acromioclavicular and sternoclavicular compartments of both shoulders, posterior compartment of the left ankle. 3. The remaining skeletal structures are scintigraphically unremarkable with normal-appearing renal images and urinary bladder activity identified. NM/Bone Scan Whole Body IMPRESSION: 1. Increased radiopharmaceutical defined in the cervical and lumbar spine, left knee, the bilateral midfoot, left ankle, the shoulder articulations bilaterally is commensurate with degenerative arthritis. 2. Enhanced uptake is identified in the right knee is most consistent with normal postsurgical change. 3. There is no definitive scintigraphic evidence of diffuse axial skeletal metastatic disease on the current examination. Electronically Signed: Sid Queen DO at 12:02 EST ,
== END | disposition home or self-care (01) ==
LOC: NM 08:46
PROVIDERS: PCP Family Medicine; Referring Provider Urology; Visit Provider Urology
DX: C61 Malignant neoplasm of prostate (principal)
CPT/HCPCS: 78306; A9503

== ENCOUNTER 2023-09-24 06:02 | Day surgery (SDC) | payer OTHER, SELFPAY ==
[2023-09-24 06:23] VITALS: BP 119/79; PULSE 61; RESP 16; TEMP 36.2; O2SAT 98; BMI 42.0
[2023-09-24] MEDS: Lactated Ringers 1,000 ML 15 ML IV (06:29)
[2023-09-24] MEDS: Cefazolin 2 GM in 0.9% Normal Saline (100mL Bag) 100 ML IV (07:18)
--- NOTE | 2023-09-24 07:37 | HP.PCM_ITS ---
[facility] - General General Date of Service: 09/24/23 [facility] Narrative SAMARIA PALAFOX, is a 63 M who presents for placement of gold markers and spacer gel he has intermediate risk prostate cancer plan to place these markers and gel and he will be back in the office for hormone therapy as well [facility] Medical History (Updated 09/17/23 @ 10:23 by Savanah Rehman) Abnormal pathology report from prostate needle biopsy Alcohol use Anxiety Arthritis Back pain BPH (benign prostatic hyperplasia) Cancer CPAP (continuous positive airway pressure) dependence Diabetes Dysuria Elevated PSA Former smoker Heartburn History of edema History of pain when walking History of stress test Loss of hearing Nocturia Urinary incontinence Wears dentures Wears glasses Home Medications cholecalciferol (vitamin D3) 10 mcg (400 unit) capsule 10 mcg PO DAILY 08/31/23 [History Last Taken Unknown] fluoxetine 20 mg tablet 20 mg PO DAILY 09/17/23 [History Last Taken Unknown] ibuprofen 400 mg tablet (IBU) 400 mg PO Q6H PRN PRN pain 09/17/23 [History Last Taken Unknown] meloxicam 15 mg tablet 15 mg PO DAILY PRN PRN pain 09/17/23 [History Last Taken Unknown] tamsulosin 0.4 mg capsule 0.4 mg PO QHS 09/17/23 [History Last Taken Unknown] ciprofloxacin HCl 500 mg tablet (Cipro) 500 mg PO BID #6 tabs 09/24/23 [Rx Last Taken Unknown] Allergy/AdvReac Type Severity Reaction Status Date / Time No Known Allergies Allergy Verified 09/24/23 06:22 Family History Brother Prostate CA Other Heart disease Surgical History (Updated 09/17/23 @ 10:23 by Savanah Rehman) History of ERCP History of inguinal hernia repair History of laparoscopic cholecystectomy History of umbilical hernia repair Hx of colonoscopy Hx of total knee arthroplasty Social History Smoking Status: Former smoker alcohol intake: current alcohol intake frequency: holidays/special occasions only substance use type: does not use caffeine: Yes Vital Signs Vital Signs Vital Signs: 09/24/23 06:23 09/24/23 06:23 Temperature 97.1 F L Temperature Source Temporal Pulse Rate 61 Respiratory Rate 16 Respiratory Pattern Normal Blood Pressure 119/79 Blood Pressure Mean 92 Blood Pressure Source Monitor Blood Pressure Position Semi-Fowlers Blood Pressure Location Left Arm Pulse Ox 98 Oxygen Delivery Method Room Air Weight Weight: 140.5 kg Body Mass Index (BMI) 42.0
--- NOTE | 2023-09-24 07:38 | DCINST_ITS ---
Discharge Instructions Diet Discharge Diet: No restrictions Activity Discharge Activity: Return to Normal Activity and May Not Drive (while taking narcotic pain medications.) Dressing / Incision Call your doctor if you observe: Fever of 101 or Higher Follow Up Care Please Follow Up With: Laith Kelly MD When: Call [phone] for an appointment Test Results: Test results from this visit will be discussed in further detail at your follow- up appointment, if applicable. Discharge Plan Admission Primary Reason for Your Visit: Prostate cancer placement of spacer gel, markers Attending Provider: Laith Kelly Primary Care Provider: Jesus Almanza Discharge Orders/Prescriptions Prescriptions: New ciprofloxacin HCl [Cipro] 500 mg tablet 500 mg PO BID Qty: 6 0RF Continued cholecalciferol (vitamin D3) 10 mcg (400 unit) capsule 10 mcg PO DAILY meloxicam 15 mg tablet 15 mg PO DAILY PRN PRN (Reason: pain) Hold Instructions: pt stopped per self, states got rash. fluoxetine 20 mg tablet 20 mg PO DAILY tamsulosin 0.4 mg capsule 0.4 mg PO QHS ibuprofen [IBU] 400 mg tablet 400 mg PO Q6H PRN PRN (Reason: pain) Referrals / Follow Up: Jesus Almanza MD [Primary Care Provider] - Laith Kelly MD [Med Staff - Active Staff] - Disposition Discharge Orders: Discharge Patient (Routine); Ordered 09/24/23 Ordered By: Dr. Laith Kelly
--- NOTE | 2023-09-24 07:38 | PCM.OPRPT ---
Report of Operation Date of Procedure: 09/24/23 Pre-Operative Diagnosis: Prostate cancer Post-Operative Diagnosis: The same Surgery/Procedure Performed:: Placement of gold markers and also spacer gel matrix in preparation for radiation therapy Description of Surgical Findings:: In the preoperative area I reviewed with the patient how the procedure is done we talked about the risk of the procedure including the risk of infection, bleeding, migration of the spacer gel, the patient is planning to have radiation to the prostate he understands that the spacer gel has demonstrated benefit in reducing the risk of toxicity from the ration radiation to the rectum but there is no guarantees that this spacer gel will prevent any serious complications or toxicity to the rectum or bowels. After reviewing this with the patient and his family organ to proceed with placement of a spacer gel matrix. Patient was taken back to the operating room after smooth induction of anesthesia he was placed supine on the table. The genitals and perineum were prepped and draped in usual sterile fashion. I then introduced a biplanar ultrasound probe into the rectum and performed ultrasonography and identified the Denonvilliers' fascia the prostate mid base and apex and seminal vesicles. The spacer gel mix was then prepared on the back table per manufactures instruction. Under ultrasound guidance in the midline perineum a bevel needle down we advanced through the perineum below the prostate into the space of Denonvilliers' fascia. This space which could be identified by ultrasound with a bright white layer between the prostate and the rectum. I then injected a puff of normal saline to identify the space further. After I confirmed that the needle was in the correct space in the mid prostate and the space of Denonvilliers' fascia between the rectum and the prostate. Then over the course of 15 seconds the gel matrix was injected slowly there was nice separation between the prostate and the rectum at the gel matrix was injected. The position of the gel matrix was confirmed by ultrasound. Then the injection needle was removed intact. The penis and testicles were prepped and draped in usual sterile fashion, ultrasound probe was placed into the rectum and biplanar ultrasound was performed on the prostate. Identified the base mid and apex of the prostate identified the transition zone prostate. Then using a needle the first sweater operator was placed into the right base of the prostate, the second sweater operator was placed in the left base of the prostate, and the third core marker was placed in the right apex of the prostate after all 3 markers were placed the placement of the markers were confirmed by ultrasonography. Surgeon: Laith Kelly Type of Anesthesia: General Drains: none Admit VTE Documentation VTE Present on Admission: No VTE Mechan Device Prophylaxis: SCD's VTE Pharm Prophylaxis ordered?: No
[2023-09-24 07:41] VITALS: BP 113/81; BP 119/79; PULSE 61; RESP 16; TEMP 36.3; O2SAT 94
[2023-09-24 07:45] VITALS: BP 102/73; BP 119/79; PULSE 69; RESP 16; O2SAT 97
[2023-09-24 07:50] VITALS: BP 119/79; BP 91/60; PULSE 61; RESP 16; O2SAT 92
[2023-09-24 07:51] VITALS: BP 102/69; BP 119/79; PULSE 64; RESP 16; TEMP 36.4; O2SAT 99
[2023-09-24 08:05] VITALS: BP 119/79
== END 2023-09-24 08:33 | disposition home or self-care (01) ==
LOC: SDC 06:04 → AC 06:05
PROVIDERS: PCP Family Medicine; Referring Provider Family Medicine; Visit Provider Urology
PROC: (CPT 55874; principal; 2023-09-24 07:15)
DX: C61 Malignant neoplasm of prostate (principal); F41.9 Anxiety disorder, unspecified; Z79.899 Other long term (current) drug therapy; Z87.891 Personal history of nicotine dependence; Z80.42 Family history of malignant neoplasm of prostate
CPT/HCPCS: 55876; 55874; 00902; J7120; J2405

== ENCOUNTER → 2023-10-05 | Outpatient (CLI) | payer OTHER, SELFPAY ==
--- NOTE | 2023-10-05 07:33 | MRI_ITS ---
STUDY: MR PELVIS WITH T WITHOUT CONTRAST REASON FOR EXAM: Male, 63 years old. prostate cancer, positive biopsy. Eval extent of disease TECHNIQUE: Standardized fat and water weighted pulse sequences were with prostate protocol with small qomin-ig-fdaw T2 obtained in all 3 orthogonal planes, pre-and post contrast administration, and diffusion imaging. Wide field of view axial T1 and T2 obtained through the mid and inferior pelvis. IV 28 ml clariscan was administered for the contrast portion of the examination. COMPARISON: Nuclear medicine bone scan 08/25/2023. FINDINGS: Prostate 3.8 x 4.2 x 4.0 cm (33 mL) Transition zone: T2 evaluation is somewhat limited by low [id number]-ty-wshgm. There is heterogeneous signal without discrete suspicious T2 lesion. Focal increased diffusion signal with low ADC spanning 2.5 cm in the anterior central region. Peripheral zone: Hyperintense T1 signal along the right transitional zone suggestive of sequela of recent biopsy with mild ill-defined diffuse enhancement. There is heterogeneous low T2 signal throughout the right peripheral zone body. No discrete diffusion restriction. No capsular bulge though there is mild edema an ill-defined hyperenhancement along the right lateral peripheral zone body margin, reference axial postgadolinium series 12 image 23. Localized fluid noted between the prostate and the rectum, presumably placed to aid biopsy. Retroprostatic angles are otherwise preserved. Unremarkable seminal vesicles. Unremarkable bowel signal. Normal bladder wall appearance. No adenopathy appreciated within the imaged pelvis. Normal bone marrow signal in the limited [id number]. MRI/Pelvis W/WO Contrast IMPRESSION: Biopsy changes along the right peripheral zone body with mild nonspecific right adjacent edema and hyperenhancement. No overt capsular bulge. Correlate with location and timing of positive biopsy. Repeat MRI in 2-4 weeks may help distinguish postbiopsy changes from early extracapsular extension of disease. There is no other evidence of extracapsular extension of disease. Limited transition zone T2 evaluation due to low fliwzk-ta-xxlkj with focal diffusion restriction along the anterior central suspicious for malignancy. PI-RADS indeterminate based on the T2. Fluid posterior to the prostate presumably part of recent biopsy Overall PI-RADS: Indeterminate by MRI, though known biopsy-positive. Electronically Signed: Miguel Boyer MD at 16:36 EDT ,
[2023-10-05 08:33] LABS: CREATININE FINGERSTICK 1.2 mg/dL (0.70-1.30); EGFR FINGERSTICK > 60.0000 mL/min (>60)
== END | disposition home or self-care (01) ==
PROVIDERS: PCP Family Medicine; Referring Provider Student in an Organized Health Care Education/Training Program; Visit Provider Student in an Organized Health Care Education/Training Program
DX: C61 Malignant neoplasm of prostate (principal)
CPT/HCPCS: 72197; A9575

== ENCOUNTER 2024-04-21 09:07 | Emergency (ER) | payer OTHER, SELFPAY ==
[2024-04-21 09:08] VITALS: BP 143/87; PULSE 61; RESP 18; TEMP 36.4; O2SAT 100; BMI 40.6
--- NOTE | 2024-04-21 09:19 | EKG12_ITS ---
Test Reason : CP Blood Pressure : / mmHG Vent. Rate : 053 BPM Atrial Rate : 053 BPM P-R Int : 170 ms QRS Dur : 090 ms QT Int : 406 ms P-R-T Axes : 012 -22 003 degrees QTc Int : 380 ms Sinus bradycardia Otherwise normal ECG Confirmed by KALYANI RAPP MD ([id number]), editor department YVROSE GILLESPIE ([id number]) on 04/24/2024 9:21:30 AM Referred By: PADILLA Confirmed By:KALYANI RAPP MD
--- NOTE | 2024-04-21 09:25 | ED.VIS.CHEST ---
HPI History of Present Illness Chief Complaint: Chest Pain Informant: patient Onset/Context/Timing Onset: Weeks Activity at onset: gradual Timing: Intermittent Quality: Positive for Pain and Sharp Location: - (All over his chest.) Current Severity: Mild Maximum Severity: Mild Worsened By: Nothing Relieved By: Nothing Associated Symptoms: Negative for Nausea, Vomiting, Diaphoresis, Dyspnea, Cough, Fever, Lightheadedness, Acid Reflux or Palpitations Narrative Narrative: 63-year-old male prior history of prostate cancer and borderline diabetes. Finished radiation treatment for his prostate cancer in November. Having atypical nonexertional sharp chest pain for the last 2 weeks. Comes and goes. Not associated with exertion. No exertional dyspnea. No hemoptysis. Not pleuritic. No history of DVT or PE. No recent hospitalization or immobilization. No calf pain. Denies any significant shortness of breath. Patient had a cardiac catheterization around 20 years ago was negative. His most recent stress test was 8 years ago and was negative. Prior Similar Symptoms: Yes Recent Illness/Hospitalization: No CVD Risk Factors: Positive for Diabetes; Negative for Hypertension or Smoking PE Risk Factors: Negative for Recent Travel/Surgery, Recent Immobilization, Prior DVT or PE, Cancer or OCP + Smoking + >/=35 TAD Risk Factors: Negative for Marfan's Syndrome [facility] Medical History Loss of hearing Wears glasses Wears dentures Cancer Alcohol use Diabetes Arthritis Back pain Heartburn CPAP (continuous positive airway pressure) dependence Former smoker History of pain when walking History of edema History of stress test Urinary incontinence Nocturia Dysuria Anxiety BPH (benign prostatic hyperplasia) Elevated PSA Abnormal pathology report from prostate needle biopsy Home Medications ?Medication ?Instructions ?Recorded ?Last Taken ?Type cholecalciferol (vitamin D3) 10 10 mcg PO DAILY 08/31/23 Unknown History mcg (400 unit) capsule ibuprofen 400 mg tablet (IBU) 400 mg PO Q6H PRN PRN pain 09/17/23 Unknown History tamsulosin 0.4 mg capsule 0.4 mg PO QHS 02/29/24 Unknown History Allergy/AdvReac Type Severity Reaction Status Date / Time meloxicam Allergy Severe Rash Verified 04/21/24 09:08 Family History Brother Prostate CA Other Heart disease Surgical History Hx of colonoscopy History of ERCP Hx of total knee arthroplasty History of inguinal hernia repair History of umbilical hernia repair History of laparoscopic cholecystectomy Social History Smoking Status: Former smoker alcohol intake: current alcohol intake frequency: holidays/special occasions only substance use type: does not use caffeine: Yes ROS ROS ED ROS Narrative Atypical nonexertional chest pain. Constitutional Constitutional ED: Denies chills or fever(s) Eyes Eyes: Reports none ENT ENT ED: Denies ear pain Cardiovascular Cardiovascular: Reports as per HPI and chest pain; Denies palpitations or racing heartbeat Respiratory/Chest Respiratory/Chest: Denies cough, dyspnea or dyspnea on exertion Gastrointestinal Gastrointestinal: Denies abdominal pain Genitourinary Genitourinary ED: Denies dysuria or hematuria Musculoskeletal Musculoskeletal: Denies arthralgias or back pain Integumentary Denies abscess or Abrasions Neurologic Neurologic: Denies headache(s) Psychiatric Psychiatric: Denies anxiety Endocrine Endocrinology: Denies cold intolerance Hematologic/Lymphatic Hematologic/Lymphatic: Denies easy bleeding or easy bruising Allergic/Immunologic Allergic/Immunologic ED: Denies mouth swelling, tongue swelling or urticaria EXAM Physical Exam Narrative Exam Narrative: Well-appearing six 3-year-old male. Vital signs stable afebrile. Pulse ox 100% on room air no signs hypoxia. H EENT exam unremarkable. Neck nontender. No JVD. Lungs clear to auscultation bilaterally. Heart regular rhythm rate about 60 no murmur. Chest wall mild reproducible tenderness. No ecchymosis or bruising. No subcu air or crepitance. No signs of trauma. Abdomen soft nontender. Moving all 4 extremities. Calves are nontender. Trace edema both lower extremities. Equal and symmetrical. No cords. He has equal symmetrical radial pulses. 5 out of 5 operations scheduler strength. Dorsi plantarflexion intact. Back nontender. Neurologically is awake and alert no focal motor deficits. Benign exam. Const Vital Signs: 04/21/24 09:08 04/21/24 09:22 Temperature 97.5 F L Temperature Source Oral Pulse Rate 61 Respiratory Rate 18 Respiratory Effort Normal Non-Labored Blood Pressure 143/87 H Blood Pressure Mean 105 Pulse Ox 100 Oxygen Delivery Method Room Air Positive well nourished and well developed; Negative for cachectic, contractures or unkempt General Appearance ED: well developed and NAD; Negative for unkempt, cachectic, contractures or pallor Nutritional Appearance: Negative for cachectic HEENT Reports moist mucous membranes normocephalic and atraumatic Eyes PERRL and EOMs intact bilaterally Neck no lymphadenopathy, supple and no JVD General: Negative for tenderness Chest Wall inspection of chest normal and palpation of chest normal Chest: Negative for tenderness Resp normal respiratory effort and clear to auscultation bilaterally Effort and Inspection: Negative for respiratory distress Auscultation: Negative for rales, rhonchi, wheezes or diminished lung sounds Cardio regular rate, regular rhythm, S1 normal heart sound, S2 normal heart sound and no murmurs Peripheral Pulses: pulses 2+ throughout GI normal to inspection, nondistended, normoactive bowel sounds, soft to palpation, non-tender, non-distended and no masses Back/Spine no CVA tenderness and no thoracic nor lumbar tenderness General Back: Negative for CVA tenderness Cervical Spine: Negative for cervical spine tenderness Extremity Negative for normal to inspection Extremity Narrative: Trace edema bilaterally. Calves are nontender tender. No cords. General Extremety ED: Yes edema; Negative for pulses abnormal or tenderness General Extremity: edema; Negative for pulses abnormal Neuro oriented x3 and CN's II-XII intact bilaterally Sensorium / Orientation: awake, alert, oriented to person, oriented to place and oriented to time; Negative for confused, lethargic or stuporous Motor Exam: strength 5/5 throughout; Negative for general weakness or strength abnormal Psych mental status grossly normal Appearance: Negative for unkempt Attitude: No agitated Mood & Affect: Negative for depressed, anxious or tearful Skin no rashes or lesions noted and no wounds General Skin Exam: Negative for jaundice or pallor Rashes: No rashes noted Trauma: Negative for abrasion or laceration Heart Score History: Slightly/Non-Suspicious ECG: Normal Age: >45 - <65 years Risk Factors: 1 or 2 Risk Factors Troponin: </= Normal Limit Score: 2 MDM MDM MDM Narrative Medical decision making narrative: 63-year-old male with atypical nonexertional chest pain. Mildly reproducible to his chest wall. He will undergo cardiac workup. No history of DVT or PE nor does it sound like that. History & Record Review Discussion w/independent historian: Patient Lab Data Attestation: I reviewed the patient's lab results. Lab results narrative: CBC shows a white count of 4. H&H 14 and 40. Platelets 196. Electrolytes show gap 5. Normal BUN and creatinine. Glucose 159. Troponins 3. Chest x-ray is unremarkable. Labs: Laboratory Results - last 24 hr 04/21/24 09:20 WBC 4.1 L RBC 4.69 Hgb 14.1 Hct 40.3 MCV 85.9 MCH 30.1 MCHC 35.0 RDW Std Deviation 37.3 RDW Coeff of Ryan 12.1 Plt Count 196 MPV 9.1 Immature Gran % (Auto) 0.000 Neut % (Auto) 65.2 Lymph % (Auto) 19.6 Sandoval % (Auto) 12.1 H Eos % (Auto) 2.4 Baso % (Auto) 0.7 Absolute Neuts (auto) 2.7 Absolute Lymphs (auto) 0.81 L Nucleated RBC % 0 Sodium 139 Potassium 4.2 Chloride 107 Carbon Dioxide 27.0 Anion Gap 5 BUN 17 Creatinine 0.92 Estim Creat Clear Calc 115.87 Est GFR (MDRD) Af Amer 106 Est GFR (MDRD) Non-Af 88 BUN/Creatinine Ratio 18.4 Glucose 159 H Calcium 9.9 Troponin I High Sens 3 Radiography Chest X-Ray - ED: 1 View, Read by ED Physician, Heart, Lungs, Mediastinum, Bony Structures, No Acute Disease and Chronic Changes Diagnostic Testing: Chest x-ray, portable, single view, interpreted by myself shows no acute abnormality. Normal cardiac silhouette. Mediastinum. Lung [place]. Chronic changes. Rhythm Strip Rhythm Strip: Sinus bradycardia Rate: 53 EKG Initial EKG: Attestation: I personally reviewed and interpreted this EKG as follows: Interpretation: Sinus Rhythm, No Acute Injury Pattern and Sinus Bradycardia Comments: Sinus bradycardia rate of 53 no acute signs of IL or ischemia. Discharge Plan Triage Chief Complaint: Chest Pain ED Provider: Shay Amaya Dx/Rx/DC Orders Prescriptions: No Action cholecalciferol (vitamin D3) 10 mcg (400 unit) capsule 10 mcg PO DAILY tamsulosin 0.4 mg capsule 0.4 mg PO QHS Rx Instructions: take one tab PO bid ibuprofen [IBU] 400 mg tablet 400 mg PO Q6H PRN PRN (Reason: pain) Primary Care Provider: Jeferson Almanza Referrals: Jeferson Almanza MD [Primary Care Provider] - Print Language: Malagasy
--- NOTE | 2024-04-21 09:30 | RAD_ITS ---
STUDY: X-RAY CHEST REASON FOR EXAM: Male, 63 years old. Chest pain TECHNIQUE: Single AP portable view of the chest. COMPARISON: Comparison is made with prior study July 24, 2022. FINDINGS: EKG electrodes are seen. The lungs are clear and expanded. There is no demonstrated pleural abnormality. Normal size heart. Normal mediastinum and alessandra. Normal visualized pulmonary arteries. There is atherosclerotic tortuosity of the aortic arch and descending thoracic aorta. Normal visualized thoracic spine. Normal visualized ribs, clavicles, and shoulders. There is no demonstrated abnormality of the visualized soft tissue structures of the upper abdomen. RAD/Chest 1 View (Portable) IMPRESSION: No acute abnormality is seen. Electronically Signed: Shelton Hanna MD at 9:59 EDT ,
[2024-04-21 09:35] LABS: Absolute Lymphocyte Count 0.81 X10^3/uL (0.83-4.51); Absolute Neutrophil Count 2.7 X10^3/uL (2.0-7.7); Basophil# 0.03 X10^3/uL; Basophil% 0.7 % (0-1); Eosinophils% 2.4 % (0-5); Hematocrit 40.3 % (40-54); Hemoglobin 14.1 g/dL (13.0-16.5); Lymphocyte # 0.81 X10^3/ul (0.83-4.51); Lymphocyte % 19.6 % (19-41); Mean Corpuscular Hgb 30.1 pg (27.0-32.0); Mean Corpuscular Volume 85.9 fL (80-94); Mean Platelet Vol. 9.1 fl (6.2-12.0); Monocyte% 12.1 % (0-10); NRBC Flagged by Analyzer 0 % (0-5); Neutrophil % 65.2 % (47-70); Platelet Count 196 K/mm3 (150-450); RBC Distribution Width CV 12.1 % (11.6-14.6); RBC Distribution Width SD 37.3 fl (35.1-43.9); Red Blood Count 4.69 M/mm3 (4.6-6.2); White Blood Count 4.1 K/mm3 (4.4-11.0)
[2024-04-21 09:43] LABS: Anion Gap 5 (5-15); BUN 17 mg/dL (7-18); BUN/Creat Ratio 18.4 RATIO (10-20); Calcium,Total 9.9 mg/dL (8.5-10.1); Chloride 107 mmol/L (98-107); Creatinine, Serum 0.92 mg/dL (0.70-1.30); EST Glomerular Filtration Rate 88 mL/min (>60); Est Glom Filt Rate - Afr Amer 106 mL/min (>60); Estimated Creatinine Clearance 115.87 ml/min; Glucose 159 mg/dL (74-106); Potassium 4.2 mmol/L (3.5-5.1); Sodium Level 139 mmol/L (136-145); Troponin-I HS 3 pg/mL (3.0-78.0)
[2024-04-21 10:09] VITALS: BP 135/81; PULSE 72; RESP 15; TEMP 36.4; O2SAT 98
== END 2024-04-21 10:11 | disposition home or self-care (01) ==
PROVIDERS: Emergency Provider Emergency Medicine; PCP Family Medicine; Visit Provider Emergency Medicine
DX: R07.89 Other chest pain (principal); Z87.891 Personal history of nicotine dependence
CPT/HCPCS: 71045; 80048; 84484; 85025; 93005; 99284; A4216

== ENCOUNTER → 2024-05-01 | Outpatient (CLI) | payer OTHER, SELFPAY ==
[2024-05-01 18:33] LABS: Absolute Lymphocyte Count 0.99 X10^3/uL (0.83-4.51); Absolute Neutrophil Count 2.9 X10^3/uL (2.0-7.7); Basophil# 0.05 X10^3/uL; Basophil% 1.1 % (0-1); Eosinophil# 0.08 X10^3/uL; Eosinophils% 1.8 % (0-5); Hemoglobin 13.7 g/dL (13.0-16.5); Lymphocyte # 0.99 X10^3/ul (0.83-4.51); Lymphocyte % 21.7 % (19-41); Mean Corp Hgb Conc 34.3 g/dL (32-36); Mean Corpuscular Hgb 29.5 pg (27.0-32.0); Mean Corpuscular Volume 86.2 fL (80-94); Mean Platelet Vol. 9.7 fl (6.2-12.0); Monocyte# 0.56 X10^3/uL; Monocyte% 12.3 % (0-10); NRBC Flagged by Analyzer 0 % (0-5); Neutrophil # 2.87 X10^3/uL (2.7-7.7); Neutrophil % 62.7 % (47-70); Platelet Count 227 K/mm3 (150-450); RBC Distribution Width CV 12.4 % (11.6-14.6); RBC Distribution Width SD 38.6 fl (35.1-43.9); Red Blood Count 4.64 M/mm3 (4.6-6.2); White Blood Count 4.6 K/mm3 (4.4-11.0)
[2024-05-01 18:48] LABS: Erythrocyte Sedimentation Rate 7 mm/hr (0-20)
[2024-05-01 18:53] LABS: Vitamin B12 421 pg/mL (211-911)
[2024-05-01 18:54] LABS: ALB/GLOB Ratio 1.1 RATIO (0.9-2.4); AST(SGOT) 20 U/L (15-37); Alanine Aminotransfer ALT/SGPT 38 U/L (16-61); Alkaline Phosphatase 68 U/L (45-117); Anion Gap 7 (5-15); BUN 21 mg/dL (7-18); BUN/Creat Ratio 20.8 RATIO (10-20); Calcium,Total 9.6 mg/dL (8.5-10.1); Chloride 108 mmol/L (98-107); Creatinine, Serum 1.01 mg/dL (0.70-1.30); EST Glomerular Filtration Rate 79 mL/min (>60); Est Glom Filt Rate - Afr Amer 96 mL/min (>60); Globulin 3.6 g/dL (2.2-4.2); Glucose 154 mg/dL (74-106); Potassium 4.3 mmol/L (3.5-5.1); Protein, Total 7.6 g/dL (6.4-8.2); Sodium Level 140 mmol/L (136-145)
== END | disposition home or self-care (01) ==
LOC: MFPLAB 16:42
PROVIDERS: PCP Family Medicine; Visit Provider Family Medicine
DX: R53.83 Other fatigue (principal); E11.9 Type 2 diabetes mellitus without complications; E55.9 Vitamin D deficiency, unspecified; E53.8 Deficiency of other specified B group vitamins
CPT/HCPCS: 36415; 80053; 82306; 82533; 82607; 84403; 84443; 85025; 85652

== ENCOUNTER → 2024-10-13 | Outpatient (CLI) | payer OTHER, SELFPAY | END | disposition home or self-care (01) | LOC: MFPLAB 08:18 | PROVIDERS: PCP Family Medicine; Referring Provider Family Medicine; Visit Provider Family Medicine | DX: E29.1 Testicular hypofunction (principal) | CPT/HCPCS: 36415; 84403 ==

== ENCOUNTER → 2024-10-27 | Outpatient (CLI) | payer OTHER, SELFPAY | END | disposition home or self-care (01) | LOC: LAB 08:16 | PROVIDERS: PCP Family Medicine; Referring Provider Family Medicine; Visit Provider Family Medicine | DX: E29.1 Testicular hypofunction (principal) | CPT/HCPCS: 36415; 84403 ==

== ENCOUNTER → 2025-02-12 | Outpatient (CLI) | payer OTHER, SELFPAY ==
--- OUTSIDE RECORDS SUMMARY | 2025-02-12 06:05 | XMS RPT_ITS | CCD ---
Author Organization [facility] CliniSyoh Care Team Providers Care Customer Service Sales Consultant Name Role Phone Dr. Jesus Almanza Primary Care Provider [phone] Dr. Jonathon Young Attending Provider Dr. Laith Kelly Referring Provider [phone] Dr. Jeferson Almanza Primary Care Provider [phone] amish Attending Provider Unavailable Archie LEE, Dr. Govea Primary Care Provider Dr. Jonathon Young DO Attending Provider Robin LEE, Dr. Laith Garvey Referring Provider Dr. Jeferson Almanza MD Referring Provider Dr. Jeferson Almanza MD Attending Provider Laith Kelly Referring Unavailable Ranney, Christopher Primary Care Unavailable Jonathon Young Attending Unavailable Arielney, Christjacque Referring Unavailable Ranney, Jeferson Attending Unavailable Ranney, Christopher Primary Care Unavailable Archie, Christjacque Referring Unavailable Jeferson Almanza Attending Unavailable Ranney, Christopher Primary Care Unavailable Ranney, Christjacque Attending Unavailable Ranney, Christopher Primary Care Unavailable Shay Amaya Attending Unavailable Ranney, Christopher Primary Care Unavailable Ranney, Christopher Referring Unavailable Ranney, Christopher Primary Care Unavailable Jonathon Young Attending Unavailable Archie, Christopher Referring Unavailable Ranney, Christopher Primary Care Unavailable Jonathon Young Attending Unavailable Ranney, Christopher Primary Care Unavailable Jonathon Young Attending Unavailable Ranney, Christopher Referring Unavailable Ranney, Christopher Primary Care Unavailable Jonathon Young Attending Unavailable Ranney, Christopher Referring Unavailable Ranney, Christopher Primary Care Unavailable Jonathon Young Attending Unavailable Jeferson Almanza Primary Care Unavailable Jonathon Young Attending Unavailable Jonathon Young Referring Unavailable Jeferson Almanza Primary Care Unavailable Jonathon Young Attending Unavailable Jonathon Young Referring Unavailable Jeferson Almanza Primary Care Unavailable Jonathon Young Referring Unavailable Jonathon Young Attending Unavailable Jeferson Almanza Primary Care Unavailable Jonathon Young Referring Unavailable Jonathon Young Attending Unavailable Allergies Allergy Classification Reported Allergen(s) Allergy Type Date of Onset Reaction(s) Facility (1 source) meloxicam Drug Allergy 09-07-2024 Rash [facility] Comment on above: Severe sunburn typ e reaction (1 source) meloxicam Drug Allergy 09-07-2024 [facility] Repository Medications Current Medications Medication Drug Class(es) Dates Sig (Normalized) Sig (Original) cholecalciferol 0.01 mg oral capsule (3 sources) Vitamin D Start: 08-31-2023 take 1 capsule by mouth once daily Cholecalciferol (Vitamin D3) 10 mcg (400 unit) capsule Active 10 ug PO DAILY August 31, 2023 1:00am Start: 08-31-2023 take 10 ug by mouth once daily Cholecalciferol (Vitamin D3) Active 10 MCG PO DAILY August 31, 2023 1:00am DULoxetine 20 mg delayed release oral capsule (1 source) Serotonin and Norepinephrine Reuptake Inhibitor Start: 05-30-2024 take 1 capsule by mouth once daily Duloxetine 20 mg capsule,delayed release(DR/EC) Active 20 mg PO daily May 30, 2024 1:00am ibuprofen 400 mg oral tablet (3 sources) Nonsteroidal Anti-inflammatory Drug Start: 09-17-2023 take 1 tablet by mouth every six hours as needed for pain Ibuprofen (Ibu) 400 mg tablet Active 400 mg PO EVERY 6 HOURS NEEDED as needed for pain September 17, 2023 12:00am tamsulosin hydrochloride 0.4 mg oral capsule (9 sources) alpha-Adrenergic Noe Start: 09-17-2023 End: 02-29-2024 take 1 tablet by mouth twice daily at bedtime Tamsulosin 0.4 mg capsule Active 0.4 mg PO AT BEDTIME February 29, 2024 3:00pm take one tab PO bid Start: 08-31-2023 End: 09-07-2023 take 1 capsule by mouth at bedtime Tamsulosin (Flomax) 0.4 mg capsule Discontinued 0.4 mg PO AT BEDTIME August 31, 2023 1:00am September 07, 2023 3:16pm Completed/Discontinued Medications Medication Drug Class(es) Dates Sig (Normalized) Sig (Original) ciprofloxacin 500 mg oral tablet (3 sources) Quinolone Antimicrobial Start: 09-24-2023 End: 10-28-2023 take 1 tablet by mouth twice daily Ciprofloxacin Hcl (Cipro) 500 mg tablet Discontinued 500 mg PO TWICE A DAY September 24, 2023 12:00am October 28, 2023 3:34pm FLUoxetine 20 mg oral tablet (9 sources) Serotonin Reuptake Inhibitor Start: 09-17-2023 End: 02-29-2024 take 1 tablet by mouth once daily Fluoxetine 20 mg tablet Discontinued 20 mg PO DAILY September 17, 2023 12:00am February 29, 2024 3:01pm Start: 09-07-2023 End: 09-17-2023 take 2 capsules by mouth once daily Fluoxetine 10 mg capsule Discontinued 20 mg PO DAILY September 07, 2023 3:16pm September 17, 2023 10:10am Start: 09-07-2023 End: 09-17-2023 take 20 mg by mouth once daily Fluoxetine Discontinued 20 MG PO DAILY September 07, 2023 3:16pm September 17, 2023 10:10am Start: 08-31-2023 End: 09-07-2023 take 1 capsule by mouth once daily Fluoxetine 10 mg capsule Discontinued 10 mg PO DAILY August 31, 2023 1:00am September 07, 2023 3:17pm loperamide hydrochloride 2 mg oral capsule (1 source) Opioid Agonist Start: 11-23-2023 End: 12-28-2023 Loperamide (Imodium A-D) 2 mg capsule Discontinued 2 mg PO Q4H as needed November 23, 2023 12:00am December 28, 2023 3:20pm administer after each loose stool until symptoms controlled; do not exceed 8 mg per 24 hrs meloxicam 15 mg oral tablet (3 sources) Nonsteroidal Anti-inflammatory Drug Start: 09-17-2023 End: 02-29-2024 take 1 tablet by mouth once daily as needed for pain Meloxicam 15 mg tablet Discontinued 15 mg PO DAILY NEEDED as needed for pain September 17, 2023 12:00am February 29, 2024 3:01pm Problems Active Problems Problem Classification Problem Date Documented Date Episodic/Chronic Biliary tract disease (10 sources) Calculus of bile duct with obstruction; Translations: [Calculus of bile duct without cholangitis or cholecystitis with obstruction] 04-10-2016 Episodic Cancer of prostate (8 sources) Primary malignant neoplasm of prostate; Translations: [Malignant neoplasm of prostate] Onset: 09-07-2024 09-07-2023 Chronic Diabetes mellitus without complication (10 sources) Prediabetes; Translations: [Prediabetes] 07-24-2022 Episodic Other endocrine disorders (1 source) Testicular hypofunction; Translations: [Testicular hypofunction] Onset: 11-01-2024 Chronic Other nutritional; endocrine; and metabolic disorders (10 sources) Obesity; Translations: [Obesity, unspecified] 04-10-2016 Chronic Pancreatic disorders (not diabetes) (10 sources) Gallstone acute pancreatitis; Translations: [Biliary acute pancreatitis without necrosis or infection] 03-14-2016 Episodic Rehabilitation care; fitting of prostheses; and adjustment of devices (10 sources) Patient encounter status; Translations: [Encounter for fitting and adjustment of other specified devices] 04-10-2016 Chronic Residual codes; unclassified (1 source) H/O: endocrine disorder; Translations: [Personal history of other specified conditions] 04-29-2024 Episodic Syncope (10 sources) Syncope; Translations: [Syncope and collapse] 07-24-2022 Episodic Past or Other Problems Problem Classification Problem Date Documented Da te Episodic/Chronic Malaise and fatigue (1 source) Other fatigue; Translations: [Other fatigue] Onset: 05-21-2024 Episodic Nonspecific chest pain (20 sources) Chest pain; Translations: [Chest pain, unspecified] Onset: 05-10-2024 07-24-2022 Episodic Results Test Name Value Interpretation Reference Range Facility L509.3001on 10-27-2024 Testosterone [Mass/Vol] 23.90 ng/dL Low 300-720 [facility] Comment on above: Performed By: #### L 509.3001 #### [facility] [address] [place], [address] Laboratory - Chemistry and C hemistry - challengeOrdered By: Jeferson Almanza on 10-27-2024 Testosterone [Mass/Vol] 23.90 ng/dL Low 300-720 [facility] L509.3001on 10-13-2024 Testosterone [Mass/Vol] 22.50 ng/dL Low 300-720 [facility] Comment on above: Performed By: #### L 509.3001 ####[facility] [address] [place], [address] Laboratory - Chemistry and C hemistry - challengeOrdered By: Jeferson Almanza on 10-13-2024 Testosterone [Mass/Vol] 22.50 ng/dL Low 300-720 [facility] PSA,Total- Diagnosticon 08-26 PSA, DIAGNOSTIC < 0.02 Normal 0.00-4.00 [facility] Comment on above: Result Comment: This test was performed using the [employer] tPSA method. Measured values of a patient??sample can vary depending on the testing procedure used. PSA values determined on patient samples by different testing procedures cannot be used interchangeably. If there is a change in PSA assays while monitoring therapy, sequential testing should be performed to confirm baseline values. Performed By: #### L 501.9940 #### [facility] [address] [place], [address] Radiation Oncology Visiton 0 09-07-2024 Radiation Oncology Visit [facility] [address] [place] [address] OFFICE VISIT Date of Service: 09/07/24 1527 MR#: [id number] Acct: [id number] Name: FAM NUNEZ ARIES Rep #: [id number] : 1960 From: Jonathon Young DO Age/Sex: 63/M Location: [facility] Status: Signed Intake Vital Signs 05/30/24 15:43 09/07/24 15:29 Height 6 ft 6 ft Weight: 319 lb 329 lb 5 oz BMI 43.2 44.6 BP 119/79 133/85 H Blood Pressure Location Lt brachial Lt brachial Position Sitting Sitting Respiration 18 18 Pulse 72 81 Pulse Source Monitor Monitor Temp 97.9 F 97.4 F L Temperature Source Temporal Artery Temporal Artery Pulse Oximetry (%) 94 96 Oxygen Delivery Method room air room air Intake Visit Reasons: 3 MONTH F/U PROSTATE, PSA PRIOR Is patient in pain?: No Allergies meloxicam Allergy (Severe, Verified 09/07/24 15:30) Rash Medications ???Medication ???Instructions ???Recorded ???Confirmed ???Type cholecalciferol (vitamin D3) 10 10 mcg PO DAILY 08/31/23 09/07/24 History mcg (400 unit) capsule ibuprofen 400 mg tablet (IBU) 400 mg PO Q6H PRN PRN pain 4 09/07/24 History tamsulosin 0.4 mg capsule 0.4 mg PO QHS 02/29/24 09/07/24 Hi story duloxetine 20 mg capsule,delayed 20 mg PO QDAY 05/30/24 09/07/24 Hi story release PFSH PFSH Medical History Loss of hearing Wears glasses Wears dentures Cancer Alcohol use Diabetes Arthritis Back pain Heartburn CPAP (continuous positive airway pressure) dependence Former smoker History of pain when walking History of edema History of stress test Urinary incontinence Nocturia Dysuria Anxiety BPH (benign prostatic hyperplasia) Elevated PSA Abnormal pathology report from prostate needle biopsy Home Medications ???Medication ???Instructions ???Recorded ???Last Taken ???Type cholecalciferol (vitamin D3) 10 10 mcg PO DAILY 08/31/23 Unknown H istory mcg (400 unit) capsule ibuprofen 400 mg tablet (IBU) 400 mg PO Q6H PRN PRN pain 4 Unknown History tamsulosin 0.4 mg capsule 0.4 mg PO QHS 02/29/24 Unknown His tory duloxetine 20 mg capsule,delayed 20 mg PO QDAY 05/30/24 Unknown His tory release Allergy/AdvReac Type Severity Reaction Status Date / Time meloxicam Allergy Severe Rash Verified 09/07/24 15:30 Family History Brother Prostate CA Other Heart disease Surgical History Hx of colonoscopy History of ERCP Hx of total knee arthroplasty History of inguinal hernia repair History of umbilical hernia repair History of laparoscopic cholecystectomy Social History Smoking Status: Former smoker alcohol intake: current alcohol intake frequency: holidays/special occasions only substance use type: does not use caffeine: Yes Diagnosis: Fam Nunez is a 63-year-old male diagnosed with 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 From 10/25/2023 - 12/02/2023 he completed definitive radiation therapy with short-term ADT. History of Present Illness: 08/10/2023: Patient completed TRUS guided prostate biopsy.??? Pathology demonstrated [place] 3+4 adenocarcinoma involving about 40% of 1/1 core of the left prostate apex, and [place] 3+3 adenocarcinoma involving less than 5% of 1/1 core in the right prostate apex, about 30% of 1/2 cores in the left prostate mid, and about 10% of 1/2 cores in the left prostate base. 08/25/2023: Bone scan was performed.??? This demonstrated no evidence for metastatic disease. 10/05/2023: Patient completed MRI with and without contrast.??? This demonstrates no clear evidence of focal disease within the prostate, no extracapsular extension. From 10/25/2023 - 12/02/2023: received definitive radiation therapy consisting of 7000 cGy in 28 fractions to the prostate. He was treated with a VMAT plan using 10 MV photons. Radiation Treatment History: 1) From 10/25/2023 - 12/02/2023: received definitive radiation therapy consisting of 7000 cGy in 28 fractions to the prostate. He was treated with a VMAT plan using 10 MV photons. Interval History: Patient presents for follow-up approximately 9 months after completing definitive radiation therapy. He completed ADT in December. He believes his his urinary symptoms are stable and he is doing Flomax once per day. He does report frequency, incomplete emptying, and weak stream about half the time, urgency, intermittency, and straining less than half the time. He does have nocturia 3 times per night. He is not currently sexually active. He (more content not included)... Normal [facility] PSA,Total- Diagnosticon 12-0 PSA, DIAGNOSTIC 0.02 ng/mL Normal 0.0-4.0 [facility] Comment on above: Result Comment: This test was performed using the TPSA assay method for the [employer] chemistry system. Values obtained with different assay methods cannot be used interchangably. When changing PSA assays in the course of monitoring a patient, additional sequential testing should be carried out to confirm baseline values. Performed By: #### L 501.9940 ####[facility] [address] [place], [address] Radiation Oncology Visiton 1 07-31-2023 Radiation Oncology Visit [facility] [address] [place] [address] OFFICE VISIT Date of Service: 05/30/24 1540 MR#: [id number] Acct: [id number] Name: FAM NUNEZ ARIES Rep #: [id number] : 1960 From: Jonathon Young DO Age/Sex: 63/M Location: [facility] Status: Signed Intake Vital Signs 02/29/24 15:02 04/21/24 09:08 05/30/24 15:43 Height 6 ft 6 ft 6 ft Weight: 319 lb BMI 43.2 BP 119/79 Blood Pressure Location Lt brachial Position Sitting Respiration 18 Pulse 72 Pulse Source Monitor Temp 97.9 F Temperature Source Temporal Artery Pulse Oximetry (%) 94 Oxygen Delivery Method room air Intake Visit Reasons: 3 MONTH PROSTATE, PSA PRIOR Is patient in pain?: No Allergies meloxicam Allergy (Severe, Verified 05/30/24 15:42) Rash Medications ???Medication ???Instructions ???Recorded ???Confirmed ???Type cholecalciferol (vitamin D3) 10 10 mcg PO DAILY 08/31/23 02/29/24 History mcg (400 unit) capsule ibuprofen 400 mg tablet (IBU) 400 mg PO Q6H PRN PRN pain 09/17/23 02/29/24 History tamsulosin 0.4 mg capsule 0.4 mg PO QHS 02/29/24 History duloxetine 20 mg capsule,delayed 20 mg PO QDAY 05/30/24 05/30/24 History release PFSH PFSH Medical History Loss of hearing Wears glasses Wears dentures Cancer Alcohol use Diabetes Arthritis Back pain Heartburn CPAP (continuous positive airway pressure) dependence Former smoker History of pain when walking History of edema History of stress test Urinary incontinence Nocturia Dysuria Anxiety BPH (benign prostatic hyperplasia) Elevated PSA Abnormal pathology report from prostate needle biopsy Home Medications ???Medication ???Instructions ???Recorded ???Last Taken ???Type cholecalciferol (vitamin D3) 10 10 mcg PO DAILY 08/31/23 Unknown History mcg (400 unit) capsule ibuprofen 400 mg tablet (IBU) 400 mg PO Q6H PRN PRN pain 09/17/23 Unknown History tamsulosin 0.4 mg capsule 0.4 mg PO QHS 02/29/24 Unknown History duloxetine 20 mg capsule,delayed 20 mg PO QDAY 05/30/24 Unknown History release Allergy/AdvReac Type Severity Reaction Status Date / Time meloxicam Allergy Severe Rash Verified 05/30/24 15:42 Family History Brother Prostate CA Other Heart disease Surgical History Hx of colonoscopy History of ERCP Hx of total knee arthroplasty History of inguinal hernia repair History of umbilical hernia repair History of laparoscopic cholecystectomy Social History Smoking Status: Former smoker alcohol intake: current alcohol intake frequency: holidays/special occasions only substance use type: does not use caffeine: Yes Diagnosis: Fam Nunez is a 63-year-old male diagnosed with 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 From 10/25/2023 - 12/02/2023 he completed definitive radiation therapy with short-term ADT. History of Present Illness: 08/10/2023: Patient completed TRUS guided prostate biopsy.??? Pathology demonstrated [place] 3+4 adenocarcinoma involving about 40% of 1/1 core of the left prostate apex, and [place] 3+3 adenocarcinoma involving less than 5% of 1/1 core in the right prostate apex, about 30% of 1/2 cores in the left prostate mid, and about 10% of 1/2 cores in the left prostate base. 08/25/2023: Bone scan was performed.??? This demonstrated no evidence for metastatic disease. 10/05/2023: Patient completed MRI with and without contrast.??? This demonstrates no clear evidence of focal disease within the prostate, no extracapsular extension. From 10/25/2023 - 12/02/2023: received definitive radiation therapy consisting of 7000 cGy in 28 fractions to the prostate. He was treated with a VMAT plan using 10 MV photons. Radiation Treatment History: 1) From 10/25/2023 - 12/02/2023: received definitive radiation therapy consisting of 7000 cGy in 28 fractions to the prostate. He was treated with a VMAT plan using 10 MV photons. Interval History: Patient presents for follow-up approximately 6 months after completing definitive radiation therapy. He completed ADT in December. He believes his his urinary symptoms are stable to improved and he is doing Flomax once per day. He does report frequency, intermittency, and weak stream about half the time, urgency, and incomplete emtying less than half the time, and straining less than 1 time in 5. He does have nocturia 3 times per night. He is not currently sexually active. He denies dysuria or hematuria. He denies leakage or incontinence of urine (more content not included)... Normal [facility] CBC W/Diff, Automatedon 11-0 Absolute Lymph 0.99 X10 3/uL Normal 0.83-4.51 [facility] Comment on above: Performed By: #### L 100.0100, L501.9520, L500.4050, L509.6000, L503.0105, L509.3000, L101.9900, L506.1000 ####[facility] [address] [place], [place], [address] Absolute Neut 2.9 X10 3/uL Normal 2.0-7.7 [facility] Comment on above: Performed By: #### L 100.0100, L501.9520, L500.4050, L509.6000, L503.0105, L509.3000, L101.9900, L506.1000 ####[facility] [address] [place], [address] Basophils/100 WBC (Bld) 1.1 % High 0-1 [facility] Comment on above: Performed By: #### L 100.0100, L501.9520, L500.4050, L509.6000, L503.0105, L509.3000, L101.9900, L506.1000 ####[facility] [address] [place], [address] Eosinophils/100 WBC (Bld) 1.8 % Normal 0-5 [facility] Comment on above: Performed By: #### L 100.0100, L501.9520, L500.4050, L509.6000, L503.0105, L509.3000, L101.9900, L506.1000 ####[facility] [address] [place], [address] Erythrocyte distribution width (RBC) [Ratio] 12.4 % Normal 11.6-14.6 [facility] Comment on above: Performed By: #### L 100.0100, L501.9520, L500.4050, L509.6000, L503.0105, L509.3000, L101.9900, L506.1000 ####[facility] [address] [place], [address] Hematocrit (Bld) [Volume fraction] 40.0 % Normal 40-54 [facility] Comment on above: Performed By: #### L 100.0100, L501.9520, L500.4050, L509.6000, L503.0105, L509.3000, L101.9900, L506.1000 ####[facility] [address] [place], [address] Hemoglobin (Bld) [Mass/Vol] 13.7 g/dL Normal 13.0-16.5 [facility] Comment on above: Performed By: #### L 100.0100, L501.9520, L500.4050, L509.6000, L503.0105, L509.3000, L101.9900, L506.1000 ####[facility] [address] [place], [address] IG% 0.400 Normal 0.0-0.9 [facility] Comment on above: Result Comment: IG% - Immature Granulocytes (promyelocytes, myelocytes and metamyelocytes) > 1% indicates that a LEFT SHIFT is Present. Performed By: #### L 100.0100, L501.9520, L500.4050, L509.6000, L503.0105, L509.3000, L101.9900, L506.1000 ####[facility] [address] [place], [address] Lymphocytes/100 WBC (Bld) 21.7 % Normal 19-41 [facility] Comment on above: Performed By: #### L 100.0100, L501.9520, L500.4050, L509.6000, L503.0105, L509.3000, L101.9900, L506.1000 ####[facility] [address] [place], [address] MCH (RBC) [Entitic mass] 29.5 pg Normal 27.0-32.0 [facility] Comment on above: Performed By: #### L 100.0100, L501.9520, L500.4050, L509.6000, L503.0105, L509.3000, L101.9900, L506.1000 ####[facility] [address] [place], [address] MCHC (RBC) [Mass/Vol] 34.3 g/dL Normal 32-36 [facility] Comment on above: Performed By: #### L 100.0100, L501.9520, L500.4050, L509.6000, L503.0105, L509.3000, L101.9900, L506.1000 ####[facility] [address] [place], [address] MCV (RBC) [Entitic vol] 86.2 fL Normal 80-94 [facility] Comment on above: Performed By: #### L 100.0100, L501.9520, L500.4050, L509.6000, L503.0105, L509.3000, L101.9900, L506.1000 ####[facility] [address] [place], [address] Monocytes/100 WBC (Bld) 12.3 % High 0-10 [facility] Comment on above: Performed By: #### L 100.0100, L501.9520, L500.4050, L509.6000, L503.0105, L509.3000, L101.9900, L506.1000 ####[facility] [address] [place], [address] Neutrophils/100 WBC (Bld) 62.7 % Normal 47-70 [facility] Comment on above: Performed By: #### L 100.0100, L501.9520, L500.4050, L509.6000, L503.0105, L509.3000, L101.9900, L506.1000 ####[facility] [address] [place], [address] Nucleated RBC (Bld) [#/Vol] 0 10*3/uL Normal 0-5 [facility] Comment on above: Performed By: #### L 100.0100, L501.9520, L500.4050, L509.6000, L503.0105, L509.3000, L101.9900, L506.1000 ####[facility] [address] [place], [address] Platelet mean volume (Bld) [Entitic vol] 9.7 fL Normal 6.2-12.0 [facility] Comment on above: Performed By: #### L 100.0100, L501.9520, L500.4050, L509.6000, L503.0105, L509.3000, L101.9900, L506.1000 ####[facility] [address] [place], [address] Platelets (Bld) [#/Vol] 227 10*3/uL Normal 150-450 [facility] Comment on above: Performed By: #### L 100.0100, L501.9520, L500.4050, L509.6000, L503.0105, L509.3000, L101.9900, L506.1000 ####[facility] [address] [place], [address] RBC (Bld) [#/Vol] 4.64 10*6/uL Normal 4.6-6.2 [facility] Comment on above: Performed By: #### L 100.0100, L501.9520, L500.4050, L509.6000, L503.0105, L509.3000, L101.9900, L506.1000 ####[facility] [address] [place], [address] RDW SD 38.6 fl Normal 35.1-43.9 [facility] Comment on above: Performed By: #### L 100.0100, L501.9520, L500.4050, L509.6000, L503.0105, L509.3000, L101.9900, L506.1000 ####[facility] [address] [place], [address] WBC (Bld) [#/Vol] 4.6 10*3/uL Normal 4.4-11.0 [facility] Comment on above: Performed By: #### L 100.0100, L501.9520, L500.4050, L509.6000, L503.0105, L509.3000, L101.9900, L506.1000 ####[facility] [address] [place], [place], [id number] CORTISOL SERUMon 05-01-2024 CORTISOL 5.40 ug/dL Normal 3.44-22.45 [facility] Comment on above: Result Comment: Adul t (AM) 5.27 - 22.45 ug/dL Adult (PM) 3.44 - 16.76 ug/dL Performed By: #### L 100.0100, L501.9520, L500.4050, L509.6000, L503.0105, L509.3000, L101.9900, L506.1000 ####[facility] [address] [place], [place], [id number] Comprehensive Metabolic Prof ilon 05-01-2024 Albumin [Mass/Vol] 4.0 g/dL Normal 3.2-5.0 [facility] Comment on above: Performed By: #### L 100.0100, L501.9520, L500.4050, L509.6000, L503.0105, L509.3000, L101.9900, L506.1000 ####[facility] [address] [place], [place], [id number] Albumin/Globulin [Mass ratio] 1.1 {ratio} Normal 0.9-2.4 [facility] Comment on above: Performed By: #### L 100.0100, L501.9520, L500.4050, L509.6000, L503.0105, L509.3000, L101.9900, L506.1000 ####[facility] [address] [place], [place], [id number] ALK P 68 U/L Normal 45-117 [facility] Comment on above: Performed By: #### L 100.0100, L501.9520, L500.4050, L509.6000, L503.0105, L509.3000, L101.9900, L506.1000 ####[facility] [address] [place], [address] ALT [Catalytic activity/Vol] 38 U/L Normal 16-61 [facility] Comment on above: Performed By: #### L 100.0100, L501.9520, L500.4050, L509.6000, L503.0105, L509.3000, L101.9900, L506.1000 ####[facility] [address] [place], [address] AST [Catalytic activity/Vol] 20 U/L Normal 15-37 [facility] Comment on above: Performed By: #### L 100.0100, L501.9520, L500.4050, L509.6000, L503.0105, L509.3000, L101.9900, L506.1000 ####[facility] [address] [place], [address] Bilirubin [Mass/Vol] 0.40 mg/dL Normal 0.20-1.00 [facility] Comment on above: Result Comment: For patients on eltrombopag therapy, use of Dimension [place] TBIL is not recommended. Performed By: #### L 100.0100, L501.9520, L500.4050, L509.6000, L503.0105, L509.3000, L101.9900, L506.1000 ####[facility] [address] [place], [address] BUN/CRE 20.8 RATIO High 10-20 [facility] Comment on above: Performed By: #### L 100.0100, L501.9520, L500.4050, L509.6000, L503.0105, L509.3000, L101.9900, L506.1000 ####[facility] [address] [place], [address] CA,Total 9.6 mg/dL Normal 8.5-10.1 [facility] Comment on above: Performed By: #### L 100.0100, L501.9520, L500.4050, L509.6000, L503.0105, L509.3000, L101.9900, L506.1000 ####[facility] [address] [place], [address] Chloride [Moles/Vol] 108 mmol/L High 98-107 [facility] Comment on above: Performed By: #### L 100.0100, L501.9520, L500.4050, L509.6000, L503.0105, L509.3000, L101.9900, L506.1000 ####[facility] [address] [place], [address] CO2 [Moles/Vol] 25.0 mmol/L Normal 21.0-32.0 [facility] Comment on above: Performed By: #### L 100.0100, L501.9520, L500.4050, L509.6000, L503.0105, L509.3000, L101.9900, L506.1000 ####[facility] [address] [place], [address] Creatinine [Mass/Vol] 1.01 mg/dL Normal 0.70-1.30 [facility] Comment on above: Result Comment: The validity of the calculated GFR GFRAA in patients over 70 years has not been determined. Clinical correlation is essential. Performed By: #### L 100.0100, L501.9520, L500.4050, L509.6000, L503.0105, L509.3000, L101.9900, L506.1000 ####[facility] [address] [place], [address] EST GFR - AA 96 mL/min Normal >60 [facility] Comment on above: Result Comment: Afri can Rwandan GFR Calc Performed By: #### L 100.0100, L501.9520, L500.4050, L509.6000, L503.0105, L509.3000, L101.9900, L506.1000 ####[facility] [address] [place], [address] GAP 7 Normal 5-15 [facility] Comment on above: Performed By: #### L 100.0100, L501.9520, L500.4050, L509.6000, L503.0105, L509.3000, L101.9900, L506.1000 ####[facility] [address] [place], [address] GFR/1.73 sq M.predicted among non-blacks MDRD (S/P/Bld) [Vol rate/Area] 79 mL/min/{1.73_m2} Normal >60 [facility] Comment on above: Result Comment: Non- GFR Calc Performed By: #### L 100.0100, L501.9520, L500.4050, L509.6000, L503.0105, L509.3000, L101.9900, L506.1000 ####[facility] [address] [place], [address] Globulin (S) [Mass/Vol] 3.6 g/dL Normal 2.2-4.2 [facility] Comment on above: Performed By: #### L 100.0100, L501.9520, L500.4050, L509.6000, L503.0105, L509.3000, L101.9900, L506.1000 ####[facility] [address] [place], [address] Glucose [Mass/Vol] 154 mg/dL High 74-106 [facility] Comment on above: Result Comment: Fast ing Glucose result greater than or equal to 126 mg/dL suggests DIABETES MELLITUS per A.D.A. criteria. Performed By: #### L 100.0100, L501.9520, L500.4050, L509.6000, L503.0105, L509.3000, L101.9900, L506.1000 ####[facility] [address] [place], [address] Potassium [Moles/Vol] 4.3 mmol/L Normal 3.5-5.1 [facility] Comment on above: Performed By: #### L 100.0100, L501.9520, L500.4050, L509.6000, L503.0105, L509.3000, L101.9900, L506.1000 ####[facility] [address] [place], [address] Sodium [Moles/Vol] 140 mmol/L Normal 136-145 [facility] Comment on above: Performed By: #### L 100.0100, L501.9520, L500.4050, L509.6000, L503.0105, L509.3000, L101.9900, L506.1000 ####[facility] [address] [place], [address] T PROT 7.6 g/dL Normal 6.4-8.2 [facility] Comment on above: Performed By: #### L 100.0100, L501.9520, L500.4050, L509.6000, L503.0105, L509.3000, L101.9900, L506.1000 ####[facility] [address] [place], [address] Urea nitrogen [Mass/Vol] 21 mg/dL High 7-18 [facility] Comment on above: Performed By: #### L 100.0100, L501.9520, L500.4050, L509.6000, L503.0105, L509.3000, L101.9900, L506.1000 ####[facility] [address] [place], [address] Erythrocyte Sed Rateon 05-01 SED RATE 7 mm/hr Normal 0-20 [facility] Comment on above: Performed By: #### L 100.0100, L501.9520, L500.4050, L509.6000, L503.0105, L509.3000, L101.9900, L506.1000 ####[facility] [address] [place], [place], [id number] Testosterone, Serum Totalon 05-01-2024 Testosterone [Mass/Vol] 7.88 ng/dL Normal [facility] Comment on above: Result Comment: CENT RAL 90% REFERENCE RANGES MALE AGE <50 197.44 - 669.58 ng/dL MALE AGE > or = 50 187.72 - 684.19 ng/dL FEMALE AGE <50 8.38 - 35.01 ng/dL FEMALE AGE > or = 50 <7.00 - 35.92 ng/dL Effective as of 01/21/21 Performed By: #### L 100.0100, L501.9520, L500.4050, L509.6000, L503.0105, L509.3000, L101.9900, L506.1000 ####[facility] [address] [place], [place], [id number] Thyroid Stim Hormone (TSH)on 05-01-2024 TSH 1.430 uIU/mL Normal 0.358-3.740 [facility] Comment on above: Performed By: #### L 100.0100, L501.9520, L500.4050, L509.6000, L503.0105, L509.3000, L101.9900, L506.1000 ####[facility] [address] [place], [place], [id number] Vitamin B12on 05-01-2024 Cobalamin (Vitamin B12) [Mass/Vol] 421 pg/mL Normal 211-911 [facility] Comment on above: Performed By: #### L 100.0100, L501.9520, L500.4050, L509.6000, L503.0105, L509.3000, L101.9900, L506.1000 ####[facility] [address] [facility] [address] [place], [place], [id number] Vitamin D,25 Hydroxyon 05-01 Vitamin D 25-OH 25.0 ng/mL Normal [facility] Comment on above: Result Comment: Lilian min D 25(OH) Status Range Deficiency <20 ng/mL (50nmol/L) Insufficiency 20 - 30 ng/mL (50 - 75 nmol/L) Sufficiency 30 - 100 ng/mL (75 - 250 nmol/L) Toxicity >100 ng/mL (>250 nmol/L) Performed By: #### L 100.0100, L501.9520, L500.4050, L509.6000, L503.0105, L509.3000, L101.9900, L506.1000 ####[facility] [address] [place], [place], [address] 12 Lead EKGon 04-21-2024 12 Lead EKG [facility] [address] [place] [address] 12 Lead EKG 04/21/24917 MR#: [id number] Acct: [id number] Name: FAM NUNEZ Rep #: [id number] : 1960 63 From: Meek Centeno MD Attending Dr: Status: DEP ER Ordering Dr: Shay Amaya MD Date: 04/21/24 Location: ED Sex: M C Admitted: Test Reason : CP Blood Pressure : / mmHG Vent. Rate : 053 BPM Atrial Rate : 053 BPM P-R Int : 170 ms QRS Dur : 090 ms QT Int : 406 ms P-R-T Axes : 012 -22 003 degrees QTc Int : 380 ms Sinus bradycardia Otherwise normal ECG Confirmed by MEEK CENTENO MD ([id number]), primary care pediatrician YVROSE GILLESPIE ([id number]) on 04/24/2024 9:21:30 AM Referred By: JW Confirmed By:MEEK CENTENO MD 04/24/24920 Date Meek Centeno MD CC: Dr. Jeferson Almanza MD; Dr. Shay Amaya MD Signed Normal [facility] Basic Metabolic Profile (BMP )on 04-21-2024 BUN/CRE 18.4 RATIO Normal - [facility] Comment on above: Order Comment: 'TROP ' Serial specimen #1, #2 or #3: 1 Performed By: #### L 501.4020, L100.0100, L500.2500 #### [facility] [address] [place], [address] CA,Total 9.9 mg/dL Normal 8.5-10.1 [facility] Comment on above: Order Comment: 'TROP ' Serial specimen #1, #2 or #3: 1 Performed By: #### L 501.4020, L100.0100, L500.2500 #### [facility] [address] [place], [address] Chloride [Moles/Vol] 107 mmol/L Normal 98-107 [facility] Comment on above: Order Comment: 'TROP ' Serial specimen #1, #2 or #3: 1 Performed By: #### L 501.4020, L100.0100, L500.2500 #### [facility] [address] [place], [address] CO2 [Moles/Vol] 27.0 mmol/L Normal 21.0-32.0 [facility] Comment on above: Order Comment: 'TROP ' Serial specimen #1, #2 or #3: 1 Performed By: #### L 501.4020, L100.0100, L500.2500 #### [facility] [address] [place], [address] Creatinine [Mass/Vol] 0.92 mg/dL Normal 0.70-1.30 [facility] Comment on above: Order Comment: 'TROP ' Serial specimen #1, #2 or #3: 1 Result Comment: The validity of the calculated GFR GFRAA in patients over 70 years has not been determined. Clinical correlation is essential. Performed By: #### L 501.4020, L100.0100, L500.2500 #### [facility] [address] [place], [address] ECRCL 115.87 ml/min Normal [facility] Comment on above: Order Comment: 'TROP ' Serial specimen #1, #2 or #3: 1 Performed By: #### L 501.4020, L100.0100, L500.2500 #### [facility] [address] [place], [address] EST GFR - AA 106 mL/min Normal >60 [facility] Comment on above: Order Comment: 'TROP ' Serial specimen #1, #2 or #3: 1 Result Comment: Afri can Rwandan GFR Calc Performed By: #### L 501.4020, L100.0100, L500.2500 #### [facility] [address] [place], [address] GAP 5 Normal 5-15 [facility] Comment on above: Order Comment: 'TROP ' Serial specimen #1, #2 or #3: 1 Performed By: #### L 501.4020, L100.0100, L500.2500 #### [facility] [address] [place], [address] GFR/1.73 sq M.predicted among non-blacks MDRD (S/P/Bld) [Vol rate/Area] 88 mL/min/{1.73_m2} Normal >60 [facility] Comment on above: Order Comment: 'TROP ' Serial specimen #1, #2 or #3: 1 Result Comment: Non- GFR Calc Performed By: #### L 501.4020, L100.0100, L500.2500 #### [facility] [address] [place], [address] Glucose [Mass/Vol] 159 mg/dL High 74-106 [facility] Comment on above: Order Comment: 'TROP ' Serial specimen #1, #2 or #3: 1 Result Comment: Fast ing Glucose result greater than or equal to 126 mg/dL suggests DIABETES MELLITUS per A.D.A. criteria. Performed By: #### L 501.4020, L100.0100, L500.2500 #### [facility] [address] [place], [address] Potassium [Moles/Vol] 4.2 mmol/L Normal 3.5-5.1 [facility] Comment on above: Order Comment: 'TROP ' Serial specimen #1, #2 or #3: 1 Performed By: #### L 501.4020, L100.0100, L500.2500 #### [facility] [address] [place], [address] Sodium [Moles/Vol] 139 mmol/L Normal 136-145 [facility] Comment on above: Order Comment: 'TROP ' Serial specimen #1, #2 or #3: 1 Performed By: #### L 501.4020, L100.0100, L500.2500 #### [facility] [address] [place], [address] Urea nitrogen [Mass/Vol] 17 mg/dL Normal 7-18 [facility] Comment on above: Order Comment: 'TROP ' Serial specimen #1, #2 or #3: 1 Performed By: #### L 501.4020, L100.0100, L500.2500 #### [facility] [address] [place], [address] CBC W/Diff, Automatedon 10-2 Absolute Lymph 0.81 X10 3/uL Low 0.83-4.51 [facility] Comment on above: Performed By: #### L 501.4020, L100.0100, L500.2500 #### [facility] [address] [place], [address] Absolute Neut 2.7 X10 3/uL Normal 2.0-7.7 [facility] Comment on above: Performed By: #### L 501.4020, L100.0100, L500.2500 #### [facility] [address] [place], [address] Basophils/100 WBC (Bld) 0.7 % Normal 0-1 [facility] Comment on above: Performed By: #### L 501.4020, L100.0100, L500.2500 #### [facility] [address] [place], [address] Eosinophils/100 WBC (Bld) 2.4 % Normal 0-5 [facility] Comment on above: Performed By: #### L 501.4020, L100.0100, L500.2500 #### [facility] [address] [place], [address] Erythrocyte distribution width (RBC) [Ratio] 12.1 % Normal 11.6-14.6 [facility] Comment on above: Performed By: #### L 501.4020, L100.0100, L500.2500 #### [facility] [address] [place], [address] Hematocrit (Bld) [Volume fraction] 40.3 % Normal 40-54 [facility] Comment on above: Performed By: #### L 501.4020, L100.0100, L500.2500 #### [facility] [address] [place], [address] Hemoglobin (Bld) [Mass/Vol] 14.1 g/dL Normal 13.0-16.5 [facility] Comment on above: Performed By: #### L 501.4020, L100.0100, L500.2500 #### [facility] [address] [place], [address] IG% 0.000 Normal 0.0-0.9 [facility] Comment on above: Result Comment: IG% - Immature Granulocytes (promyelocytes, myelocytes and metamyelocytes) > 1% indicates that a LEFT SHIFT is Present. Performed By: #### L 501.4020, L100.0100, L500.2500 #### [facility] [address] [place], [address] Lymphocytes/100 WBC (Bld) 19.6 % Normal 19-41 [facility] Comment on above: Performed By: #### L 501.4020, L100.0100, L500.2500 #### [facility] [address] [place], [address] MCH (RBC) [Entitic mass] 30.1 pg Normal 27.0-32.0 [facility] Comment on above: Performed By: #### L 501.4020, L100.0100, L500.2500 #### [facility] [address] [place], [address] MCHC (RBC) [Mass/Vol] 35.0 g/dL Normal 32-36 [facility] Comment on above: Performed By: #### L 501.4020, L100.0100, L500.2500 #### [facility] [address] [place], [address] MCV (RBC) [Entitic vol] 85.9 fL Normal 80-94 [facility] Comment on above: Performed By: #### L 501.4020, L100.0100, L500.2500 #### [facility] [address] [place], [address] Monocytes/100 WBC (Bld) 12.1 % High 0-10 [facility] Comment on above: Performed By: #### L 501.4020, L100.0100, L500.2500 #### [facility] [address] [place], [address] Neutrophils/100 WBC (Bld) 65.2 % Normal 47-70 [facility] Comment on above: Performed By: #### L 501.4020, L100.0100, L500.2500 #### [facility] [address] [place], [address] Nucleated RBC (Bld) [#/Vol] 0 10*3/uL Normal 0-5 [facility] Comment on above: Performed By: #### L 501.4020, L100.0100, L500.2500 #### [facility] [address] [place], [address] Platelet mean volume (Bld) [Entitic vol] 9.1 fL Normal 6.2-12.0 [facility] Comment on above: Performed By: #### L 501.4020, L100.0100, L500.2500 #### [facility] [address] [place], [address] Platelets (Bld) [#/Vol] 196 10*3/uL Normal 150-450 [facility] Comment on above: Performed By: #### L 501.4020, L100.0100, L500.2500 #### [facility] [address] [place], [address] RBC (Bld) [#/Vol] 4.69 10*6/uL Normal 4.6-6.2 [facility] Comment on above: Performed By: #### L 501.4020, L100.0100, L500.2500 #### [facility] [address] [place], [address] RDW SD 37.3 fl Normal 35.1-43.9 [facility] Comment on above: Performed By: #### L 501.4020, L100.0100, L500.2500 #### [facility] [address] [place], [address] WBC (Bld) [#/Vol] 4.1 10*3/uL Low 4.4-11.0 [facility] Comment on above: Performed By: #### L 501.4020, L100.0100, L500.2500 #### [facility] [address] [place], [place], [address] Chest 1 View (Portable)on Chest 1 View (Portable) [facility] [address] [place] [address] Chest 1 View (Portable) MR#: [id number] Acct: [id number] Name: FAM NUNEZ Rep #: [id number] : 1960 M 63 From: Shelton darling MD PCP: Dr. Jeferson Almanza MD Status: REG ER Study: Chest 1 View (Portable) Date of Exam: 04/21/24 Exam# [id number] Ordering Dr: Shay Amaya MD [id number] STUDY: X-RAY CHEST REASON FOR EXAM: Male, 63 years old. Chest pain TECHNIQUE: Single AP portable view of the chest. COMPARISON: Comparison is made with prior study July 24, 2022. FINDINGS: EKG electrodes are seen. The lungs are clear and expanded. There is no demonstrated pleural abnormality. Normal size heart. Normal mediastinum and alessandra. Normal visualized pulmonary arteries. There is atherosclerotic tortuosity of the aortic arch and descending thoracic aorta. Normal visualized thoracic spine. Normal visualized ribs, clavicles, and shoulders. There is no demonstrated abnormality of the visualized soft tissue structures of the upper abdomen. RAD/Chest 1 View (Portable) IMPRESSION: No acute abnormality is seen. Electronically Signed: Shelton Hanna MD at 9:59 EDT , CC: Dr. Jeferson Almanza MD; Dr. Shay Amaya MD Finish Mixer: Signed Normal [facility] Emergency Department Summary on 04-21-2024 Emergency Department Summary [facility] Medical Records Department [address] [place] [address] Emergency Department Summary 04/21/24 MR#: [id number] Acct: [id number] Name: FAM NUNEZ Rep #: [id number] : 1960 63 From: Shay Amaya MD PCP: Dr. Jeferson Almanza MD Status:DEP ER Location: ED HPI History of Present Illness Chief Complaint: Chest Pain Informant: patient Onset/Context/Timing Onset: Weeks Activity at onset: gradual Timing: Intermittent Quality: Positive for Pain and Sharp Location: - (All over his chest.) Current Severity: Mild Maximum Severity: Mild Worsened By: Nothing Relieved By: Nothing Associated Symptoms: Negative for Nausea, Vomiting, Diaphoresis, Dyspnea, Cough, Fever, Lightheadedness, Acid Reflux or Palpitations Narrative Narrative: 63-year-old male prior history of prostate cancer and borderline diabetes. Finished radiation treatment for his prostate cancer in November. Having atypical nonexertional sharp chest pain for the last 2 weeks. Comes and goes. Not associated with exertion. No exertional dyspnea. No hemoptysis. Not pleuritic. No history of DVT or PE. No recent hospitalization or immobilization. No calf pain. Denies any significant shortness of breath. Patient had a cardiac catheterization around 20 years ago was negative. His most recent stress test was 8 years ago and was negative. Prior Similar Symptoms: Yes Recent Illness/Hospitalization: No CVD Risk Factors: Positive for Diabetes; Negative for Hypertension or Smoking PE Risk Factors: Negative for Recent Travel/Surgery, Recent Immobilization, Prior DVT or PE, Cancer or OCP + Smoking + >/=35 TAD Risk Factors: Negative for Marfan's Syndrome [facility] Medical History Loss of hearing Wears glasses Wears dentures Cancer Alcohol use Diabetes Arthritis Back pain Heartburn CPAP (continuous positive airway pressure) dependence Former smoker History of pain when walking History of edema History of stress test Urinary incontinence Nocturia Dysuria Anxiety BPH (benign prostatic hyperplasia) Elevated PSA Abnormal pathology report from prostate needle biopsy Home Medications ???Medication ???Instructions ???Recorded ???Last Taken ???Type cholecalciferol (vitamin D3) 10 10 mcg PO DAILY 08/31/23 Unknown History mcg (400 unit) capsule ibuprofen 400 mg tablet (IBU) 400 mg PO Q6H PRN PRN pain 09/17/23 Unknown History tamsulosin 0.4 mg capsule 0.4 mg PO QHS 02/29/24 Unknown History Allergy/AdvReac Type Severity Reaction Status Date / Time meloxicam Allergy Severe Rash Verified 04/21/24 09:08 Family History Brother Prostate CA Other Heart disease Surgical History Hx of colonoscopy History of ERCP Hx of total knee arthroplasty History of inguinal hernia repair History of umbilical hernia repair History of laparoscopic cholecystectomy Social History Smoking Status: Former smoker alcohol intake: current alcohol intake frequency: holidays/special occasions only substance use type: does not use caffeine: Yes ROS ROS ED ROS Narrative Atypical nonexertional chest pain. Constitutional Constitutional ED: Denies chills or fever(s) Eyes Eyes: Reports none ENT ENT ED: Denies ear pain Cardiovascular Cardiovascular: Reports as per HPI and chest pain; Denies palpitations or racing heartbeat Respiratory/Chest Respiratory/Chest: Denies cough, dyspnea or dyspnea on exertion Gastrointestinal Gastrointestinal: Denies abdominal pain Genitourinary Genitourinary ED: Denies dysuria or hematuria Musculoskeletal Musculoskeletal: Denies arthralgias or back pain Integumentary Denies abscess or Abrasions Neurologic Neurologic: Denies headache(s) Psychiatric Psychiatric: Denies anxiety Endocrine Endocrinology: Denies cold intolerance Hematologic/Lymphatic Hematologic/Lymphatic: Denies easy bleeding or easy bruising Allergic/Immunologic Allergic/Immunologic ED: Denies mouth swelling, tongue swelling or urticaria EXAM Physical Exam Narrative Exam Narrative: Well-appearing six 3-year-old male. Vital signs stable afebrile. Pulse ox 100% on room air no signs hypoxia. H EENT exam unremarkable. Neck nontender. No JVD. Lungs clear to auscultation bilaterally. Heart regular rhythm rate about 60 no murmur. Chest wall mild reproducible tenderness. No ecchymosis or bruising. No subcu air or crepitance. No signs of trauma. Abdomen soft nontender. Moving all 4 extremities. Calves are nontender. Trace edema both lower extremities. Equal and symmetrical. No cords. He has equal symmetrical radial pulses. 5 out of 5 case planner strength. Dorsi planta (more content not included)... Normal [facility] L501.4020on 04-21-2024 TROPONIN-I HS 3 pg/mL Normal 3.0-78.0 [facility] Comment on above: Order Comment: 'TROP ' Serial specimen #1, #2 or #3: 1 Result Comment: Jose F holloway Note: New Test Units and Gender Specific Reference Ranges. For more information see Policy Stat Procedure [place] High Sensitivity Troponin (TNIH) and attachments. Performed By: #### L 501.4020, L100.0100, L500.2500 ####[facility] [address] [place], [address] PSA,Total- Diagnosticon PSA, DIAGNOSTIC 0.03 ng/mL Normal 0.0-4.0 [facility] Comment on above: Order Comment: DIDN' T FOR DR ALMANZA ORDERS PT SAID HE WILL CALL OFFICE TO FIND OUT IF NEEDED. LET HIM KNOW TO BE FASTING FOR LIPID. Result Comment: This test was performed using the TPSA assay method for the mobiTeris chemistry system. Values obtained with different assay methods cannot be used interchangably. When changing PSA assays in the course of monitoring a patient, additional sequential testing should be carried out to confirm baseline values. Performed By: #### L 501.9940 #### [facility] [address] [place], [address] Radiation Oncology Visiton 0 02-29-2024 Radiation Oncology Visit [facility] [address] [place] [address] OFFICE VISIT Date of Service: 02/29/24 1455 MR#: [id number] Acct: [id number] Name: FAM NUNEZ Rep #: [id number] : 1960 From: Jonathon Young DO Age/Sex: 63/M Location: [facility] Status: Signed Intake Vital Signs 12/28/23 15:17 02/29/24 15:02 Height 6 ft 6 ft Weight: 315 lb 6 oz 319 lb BMI 42.7 43.2 BP 130/75 H 127/88 H Blood Pressure Location Rt brachial Lt brachial Position Sitting Sitting Respiration 18 18 Pulse 61 88 Pulse Source Monitor Monitor Temp 97.5 F L 97.6 F L Temperature Source Temporal Artery Temporal Artery Pulse Oximetry (%) 94 96 Oxygen Delivery Method room air room air Intake Visit Reasons: 2 MONTH F/U PROSTATE, PSA PRIOR Chief Complaint: RAD ONC FU Prostate CA Accompanied by: Self Is patient in pain?: No Allergies meloxicam Allergy (Severe, Verified 02/29/24 15:02) Rash Medications ???Medication ???Instructions ???Recorded ???Confirmed ???Type cholecalciferol (vitamin D3) 10 10 mcg PO DAILY 08/31/23 02/29/24 History mcg (400 unit) capsule ibuprofen 400 mg tablet (IBU) 400 mg PO Q6H PRN PRN pain 09/17/23 02/29/24 History tamsulosin 0.4 mg capsule 0.4 mg PO QHS 02/29/24 History PFSH PFSH Medical History Loss of hearing Wears glasses Wears dentures Cancer Alcohol use Diabetes Arthritis Back pain Heartburn CPAP (continuous positive airway pressure) dependence Former smoker History of pain when walking History of edema History of stress test Urinary incontinence Nocturia Dysuria Anxiety BPH (benign prostatic hyperplasia) Elevated PSA Abnormal pathology report from prostate needle biopsy Home Medications ???Medication ???Instructions ???Recorded ???Last Taken ???Type cholecalciferol (vitamin D3) 10 10 mcg PO DAILY 08/31/23 Unknown History mcg (400 unit) capsule ibuprofen 400 mg tablet (IBU) 400 mg PO Q6H PRN PRN pain 09/17/23 Unknown History tamsulosin 0.4 mg capsule 0.4 mg PO QHS 02/29/24 Unknown History Allergy/AdvReac Type Severity Reaction Status Date / Time meloxicam Allergy Severe Rash Verified 02/29/24 15:02 Family History Brother Prostate CA Other Heart disease Surgical History Hx of colonoscopy History of ERCP Hx of total knee arthroplasty History of inguinal hernia repair History of umbilical hernia repair History of laparoscopic cholecystectomy Social History Smoking Status: Former smoker alcohol intake: current alcohol intake frequency: holidays/special occasions only substance use type: does not use caffeine: Yes Diagnosis: Fam Nunez is a 63-year-old male diagnosed with 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 From 10/25/2023 - 12/02/2023 he completed definitive radiation therapy with short-term ADT. History of Present Illness: 08/10/2023: Patient completed TRUS guided prostate biopsy.??? Pathology demonstrated Zac 3+4 adenocarcinoma involving about 40% of 1/1 core of the left prostate apex, and [place] 3+3 boogie nocarcinoma involving less than 5% of 1/1 core in the right prostate apex, about 30% of 1/2 cores in the left prostate mid, and about 10% of 1/2 cores in the left prostate base. 08/25/2023: Bone scan was performed.??? This demonstrated no evidence for metastatic disease. 10/05/2023: Patient completed MRI with and without contrast.??? This demonstrates no clear evidence of focal disease within the prostate, no extracapsular extension. From 10/25/2023 - 12/02/2023: received definitive radiation therapy consisting of 7000 cGy in 28 fractions to the prostate. He was treated with a VMAT plan using 10 MV photons. Radiation Treatment History: 1) From 10/25/2023 - 12/02/2023: received definitive radiation therapy consisting of 7000 cGy in 28 fractions to the prostate. He was treated with a VMAT plan using 10 MV photons. Interval History: Patient presents for follow-up approximately 3 month after completing definitive radiation therapy. He completed ADT in December. He believes his his urinary symptoms are stable to improved and he is doing Flomax once per day. He does report incomplete emptying and intermittency about half the time, urgency, weak stream, straining less than half the time, and frequency less than 1 time in 5. He does have nocturia between 1 and 5 times per night. He is not currently sexually active. He denies dysuria or hematuria. He denies leakage or incontinence of urin (more content not included)... Normal [facility] Radiation Oncology Visiton 0 12-28-2023 Radiation Oncology Visit [facility] [address] [place] [address] OFFICE VISIT Date of Service: 12/28/23 1517 MR#: [id number] Acct: [id number] Name: FAM NUNEZ Rep #: [id number] : 1960 From: Jonathon Young DO Age/Sex: 63/M Location: [facility] Status: Signed Intake Vital Signs 11/30/23 15:45 12/28/23 15:17 Height 6 ft 6 ft Weight: 317 lb 5 oz 315 lb 6 oz BMI 43.0 42.7 BP 123/82 H 130/75 H Blood Pressure Location Rt brachial Rt brachial Position Sitting Sitting Respiration 18 18 Pulse 74 61 Pulse Source Monitor Monitor Temp 97.2 F L 97.5 F L Temperature Source Temporal Artery Temporal Artery Pulse Oximetry (%) 95 94 Oxygen Delivery Method room air room air Intake Visit Reasons: 1 MONTH F/U POST RT Is patient in pain?: No Allergies No Known Allergies Allergy (Verified 12/28/23 15:20) Medications ???Medication ???Instructions ???Recorded ???Confirmed ???Type cholecalciferol (vitamin D3) 10 10 mcg PO DAILY 08/31/23 12/28/23 History mcg (400 unit) capsule fluoxetine 20 mg tablet 20 mg PO DAILY 09/17/23 12/28/23 History ibuprofen 400 mg tablet (IBU) 400 mg PO Q6H PRN PRN pain 09/17/23 12/28/23 History meloxicam 15 mg tablet 15 mg PO DAILY PRN PRN pain 09/17/23 12/28/23 History tamsulosin 0.4 mg capsule 0.4 mg PO BID 11/09/23 12/28/23 History tamsulosin 0.4 mg capsule 0.4 mg PO BID #60 caps 11/23/23 12/28/23 Rx PFSH PFSH Medical History Loss of hearing Wears glasses Wears dentures Cancer Alcohol use Diabetes Arthritis Back pain Heartburn CPAP (continuous positive airway pressure) dependence Former smoker History of pain when walking History of edema History of stress test Urinary incontinence Nocturia Dysuria Anxiety BPH (benign prostatic hyperplasia) Elevated PSA Abnormal pathology report from prostate needle biopsy Home Medications ???Medication ???Instructions ???Recorded ???Last Taken ???Type cholecalciferol (vitamin D3) 10 10 mcg PO DAILY 08/31/23 Unknown History mcg (400 unit) capsule fluoxetine 20 mg tablet 20 mg PO DAILY 09/17/23 Unknown History ibuprofen 400 mg tablet (IBU) 400 mg PO Q6H PRN PRN pain 09/17/23 Unknown History meloxicam 15 mg tablet 15 mg PO DAILY PRN PRN pain 09/17/23 Unknown History tamsulosin 0.4 mg capsule 0.4 mg PO BID 11/09/23 Unknown History tamsulosin 0.4 mg capsule 0.4 mg PO BID #60 caps 11/23/23 Unknown Rx Allergy/AdvReac Type Severity Reaction Status Date / Time No Known Allergies Allergy Verified 12/28/23 15:20 Family History Brother Prostate CA Other Heart disease Surgical History Hx of colonoscopy History of ERCP Hx of total knee arthroplasty History of inguinal hernia repair History of umbilical hernia repair History of laparoscopic cholecystectomy Social History Smoking Status: Former smoker alcohol intake: current alcohol intake frequency: holidays/special occasions only substance use type: does not use caffeine: Yes Diagnosis: Fam Nunez is a 63-year-old male diagnosed with 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 From 10/25/2023 - 12/02/2023 he completed definitive radiation therapy with short-term ADT. History of Present Illness: 08/10/2023: Patient completed TRUS guided prostate biopsy.??? Pathology demonstrated [place] 3+4 adenocarcinoma involving about 40% of 1/1 core of the left prostate apex, and [place] 3+3 ad enocarcinoma involving less than 5% of 1/1 core in the right prostate apex, about 30% of 1/2 cores in the left prostate mid, and about 10% of 1/2 cores in the left prostate base. 08/25/2023: Bone scan was performed.??? This demonstrated no evidence for metastatic disease. 10/05/2023: Patient completed MRI with and without contrast.??? This demonstrates no clear evidence of focal disease within the prostate, no extracapsular extension. From 10/25/2023 - 12/02/2023: received definitive radiation therapy consisting of 7000 cGy in 28 fractions to the prostate. He was treated with a VMAT plan using 10 MV photons. Radiation Treatment History: 1) From 10/25/2023 - 12/02/2023: received definitive radiation therapy consisting of 7000 cGy in 28 fractions to the prostate. He was treated with a VMAT plan using 10 MV photons. Interval History: Patient presents for follow-up approximately 1 month after completing definitive radiation therapy. He has 1 more ADT injection and this is planned for about 3 weeks from now. He does report some persistent (more content not included)... 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 Oncologic History: 08/10/2023: Patient completed TRUS guided prostate biopsy.??? Pathology demonstrated Zac 3+4 adenocarcinoma involving about 40% of 1/1 core of the left prostate apex, and [place] 3+3 adenocarcinoma involving less than 5% of 1/1 core in the right prostate apex, about 30% of 1/2 cores in the left prostate mid, and about 10% of 1/2 cores in the left prostate base. 08/25/2023: Bone scan was performed.??? This demonstrated no evidence for metastatic disease. 10/05/2023: Patient completed MRI with and without contrast.??? This demonstrates no clear evidence of focal disease within the prostate, no extracapsular extension. Radiation Treatment History: None The patient completed a course of external beam radiotherapy in our department. This treatment was delivered for curative intent. Treatment was given according to the following parameters: FAM NUNEZ received definitive radiation therapy consisting of 7000 cGy in 28 fractions to the prostate. He was treated with a VMAT plan using 10 MV photons. The patient did not receive concurrent chemotherapy. Date of First Treatment: 10/25/2023 Date of Last Treatment: 12/02/2023 Total Elapsed Days (including weekend and holidays): 38 Missed Treatments: none Response and Tolerance: The patient tolerated this course of radiotherapy well overall. The following radiation related toxicities developed during the course of radiation therapy: * Grade 1 diarrhea which was treated with prn imodium * Grade 1 fatigue * Some worsening in baseline urinary symptoms, improved by increasing Flomax to bid Total weight change during therapy: N/A Disposition: The patient tolerated the planned course of radiation therapy well without unexpected toxicity in an appropriate time course. I reviewed management of potential toxicities and discussed expected timing for toxicity resolution. I will have FAM follow-up in one month for a routine visit. FAM will maintain follow up with all other providers. FAM was instructed to call with any further questions or concerns in the interim. If we can provide any further information on this patient's course of care, please do not hesitate to ask. We would like to thank you very much for allowing us to participate in the care of this patient. Sincerely, Jonathon Young DO, MS Choral Director, Department of Radiation Oncology [facility] 12/02/23906 Date Jonathon Young DO [facility] Signature: Date (if applicable) CC: Dr. Jeferson Almanza MD; Dr. Laith Kelly MD Normal [facility] Radiation Oncology Visiton 0 11-30-2023 Radiation Oncology Visit [facility] [address] [place] [address] OFFICE VISIT Date of Service: 11/30/23 154 MR#: [id number] Acct: [id number] Name: FAM NUNEZ Rep #: [id number] : 1960 From: Jonathon Young DO Age/Sex: 63/M Location: [facility] Status: Signed Intake Vital Signs 09/24/23 06:23 11/30/23 15:45 Height 6 ft 6 ft Weight: 317 lb 5 oz BMI 43.0 BP 123/82 H Blood Pressure Location Rt brachial Position Sitting Respiration 18 Pulse 74 Pulse Source Monitor Temp 97.2 F L Temperature Source Temporal Artery Pulse Oximetry (%) 95 Oxygen Delivery Method room air Intake Visit Reasons: OTV Is patient in pain?: No Allergies No Known Allergies Allergy (Verified 11/30/23 15:48) Medications ???Medication ???Instructions ???Recorded ???Confirmed ???Type cholecalciferol (vitamin D3) 10 10 mcg PO DAILY 08/31/23 11/30/23 History mcg (400 unit) capsule fluoxetine 20 mg tablet 20 mg PO DAILY 09/17/23 11/30/23 History ibuprofen 400 mg tablet (IBU) 400 mg PO Q6H PRN PRN pain 09/17/23 11/30/23 History meloxicam 15 mg tablet 15 mg PO DAILY PRN PRN pain 09/17/23 11/30/23 History tamsulosin 0.4 mg capsule 0.4 mg PO BID 11/09/23 11/30/23 History loperamide 2 mg capsule (Imodium 2 mg PO Q4H PRN 11/23/23 11/30/23 History A-D) tamsulosin 0.4 mg capsule 0.4 mg PO BID #60 caps 11/23/23 11/30/23 Rx PFSH PFSH Medical History Loss of hearing Wears glasses Wears dentures Cancer Alcohol use Diabetes Arthritis Back pain Heartburn CPAP (continuous positive airway pressure) dependence Former smoker History of pain when walking History of edema History of stress test Urinary incontinence Nocturia Dysuria Anxiety BPH (benign prostatic hyperplasia) Elevated PSA Abnormal pathology report from prostate needle biopsy Home Medications ???Medication ???Instructions ???Recorded ???Last Taken ???Type cholecalciferol (vitamin D3) 10 10 mcg PO DAILY 08/31/23 Unknown History mcg (400 unit) capsule fluoxetine 20 mg tablet 20 mg PO DAILY 09/17/23 Unknown History ibuprofen 400 mg tablet (IBU) 400 mg PO Q6H PRN PRN pain 09/17/23 Unknown History meloxicam 15 mg tablet 15 mg PO DAILY PRN PRN pain 09/17/23 Unknown History tamsulosin 0.4 mg capsule 0.4 mg PO BID 11/09/23 Unknown History loperamide 2 mg capsule (Imodium 2 mg PO Q4H PRN 11/23/23 Unknown History A-D) tamsulosin 0.4 mg capsule 0.4 mg PO BID #60 caps 11/23/23 Unknown Rx Allergy/AdvReac Type Severity Reaction Status Date / Time No Known Allergies Allergy Verified 11/30/23 15:48 Family History Brother Prostate CA Other Heart disease Surgical History Hx of colonoscopy History of ERCP Hx of total knee arthroplasty History of inguinal hernia repair History of umbilical hernia repair History of laparoscopic cholecystectomy Social History Smoking Status: Former smoker alcohol intake: current alcohol intake frequency: holidays/special occasions only substance use type: does not use caffeine: Yes Diagnosis: Fam Nunez is a 63 year-old male diagnosed with 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 Plan: Plan was made to complete definitive radiation therapy consisting of 7000 cGy in 28 fractions to the prostate. Treatment Data: Treatment Site: Prostate Current total dose/Total dose planned: 6500 cGy / 7000 cGy Fraction number: Chemotherapy: none Subjective: Pain: 0 / 10 Fatigue: none Skin: no erythema, rash, desquamation GI: mild diarrhea this week, improved with one imodium/ no constipation. No rectal pain or bleeding. No bloating or increased gas : some increase in weak stream, incomplete emptying, frequency, mild discomfort, now flomax bid and improved some. No hematuria Objective: Weight: 317 lbs 5 oz Physical Exam: Gen: NAD Skin: no erythema, rash, desquamation. Labs: None Assessment Plan Assessment/Plan (1) Cancer of prostate with intermediate recurrence risk (stage T2b-c or Zac 7 or PSA 10-20): PLAN: Plan Assessment: Tolerating treatment well overall.??? I reviewed and approved all treatment associated imaging. : worsening symptoms, will continue Flomax bid GI: mild diarrhea, imodium prn Plan: Continue treatment as planned.??? I have reviewed potential treatment associated toxicities as well as timing for resolution and management. Follow up next week or sooner if needed. Thank you for allowing me to par (more content not included)... Normal [facility] Radiation Oncology Visiton 0 11-23-2023 Radiation Oncology Visit [facility] [place] [address] OFFICE VISIT Date of Service: 11/23/23 1536 MR#: [id number] Acct: [id number] Name: FAM NUNEZ ARIES Rep #: [id number] : 1960 From: Jonathon Young DO Age/Sex: 63/M Location: [facility] Status: Signed Intake Vital Signs 09/24/23 06:23 11/23/23 15:39 Height 6 ft 6 ft Weight: 316 lb 6 oz BMI 42.9 BP 125/82 H Blood Pressure Location Rt brachial Position Sitting Respiration 18 Pulse 77 Pulse Source Monitor Temp 97.9 F Temperature Source Temporal Artery Pulse Oximetry (%) 94 Oxygen Delivery Method room air Intake Visit Reasons: OTV Is patient in pain?: No Allergies No Known Allergies Allergy (Verified 11/23/23 15:38) Medications ???Medication ???Instructions ???Recorded ???Confirmed ???Type cholecalciferol (vitamin D3) 10 10 mcg PO DAILY 08/31/23 11/23/23 History mcg (400 unit) capsule fluoxetine 20 mg tablet 20 mg PO DAILY 09/17/23 11/23/23 History ibuprofen 400 mg tablet (IBU) 400 mg PO Q6H PRN PRN pain 09/17/23 11/23/23 History meloxicam 15 mg tablet 15 mg PO DAILY PRN PRN pain 09/17/23 11/23/23 History tamsulosin 0.4 mg capsule 0.4 mg PO BID 11/09/23 11/23/23 History loperamide 2 mg capsule (Imodium 2 mg PO Q4H PRN 11/23/23 11/23/23 History A-D) PFSH PFSH Medical History Loss of hearing Wears glasses Wears dentures Cancer Alcohol use Diabetes Arthritis Back pain Heartburn CPAP (continuous positive airway pressure) dependence Former smoker History of pain when walking History of edema History of stress test Urinary incontinence Nocturia Dysuria Anxiety BPH (benign prostatic hyperplasia) Elevated PSA Abnormal pathology report from prostate needle biopsy Home Medications ???Medication ???Instructions ???Recorded ???Last Taken ???Type cholecalciferol (vitamin D3) 10 10 mcg PO DAILY 08/31/23 Unknown History mcg (400 unit) capsule fluoxetine 20 mg tablet 20 mg PO DAILY 09/17/23 Unknown History ibuprofen 400 mg tablet (IBU) 400 mg PO Q6H PRN PRN pain 09/17/23 Unknown History meloxicam 15 mg tablet 15 mg PO DAILY PRN PRN pain 09/17/23 Unknown History tamsulosin 0.4 mg capsule 0.4 mg PO BID 11/09/23 Unknown History loperamide 2 mg capsule (Imodium 2 mg PO Q4H PRN 11/23/23 Unknown History A-D) Allergy/AdvReac Type Severity Reaction Status Date / Time No Known Allergies Allergy Verified 11/23/23 15:38 Family History Brother Prostate CA Other Heart disease Surgical History Hx of colonoscopy History of ERCP Hx of total knee arthroplasty History of inguinal hernia repair History of umbilical hernia repair History of laparoscopic cholecystectomy Social History Smoking Status: Former smoker alcohol intake: current alcohol intake frequency: holidays/special occasions only substance use type: does not use caffeine: Yes Diagnosis: Fam Nunez is a 63 year-old male diagnosed with 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 Plan: Plan was made to complete definitive radiation therapy consisting of 7000 cGy in 28 fractions to the prostate. Treatment Data: Treatment Site: Prostate Current total dose/Total dose planned: 5250 cGy / 7000 cGy Fraction number: Chemotherapy: none Subjective: Pain: 0 / 10 Fatigue: none Skin: no erythema, rash, desquamation GI: mild diarrhea this week, improved with one imodium/ no constipation. No rectal pain or bleeding. No bloating or increased gas : some increase in weak stream, incomplete emptying, frequency, mild discomfort, now flomax bid and improved some. No hematuria Objective: Weight: 316 lbs 6 oz Physical Exam: Gen: NAD Skin: no erythema, rash, desquamation. Labs: None Assessment Plan Assessment/Plan (1) Cancer of prostate with intermediate recurrence risk (stage T2b-c or Zac 7 or PSA 10-20): PLAN: Plan Assessment: Tolerating treatment well overall.??? I reviewed and approved all treatment associated imaging. : worsening symptoms, will continue Flomax bid GI: mild diarrhea, imodium prn Plan: Continue treatment as planned.??? I have reviewed potential treatment associated toxicities as well as timing for resolution and management. Follow up next week or sooner if needed. Thank you for allowing me to participate in the management and care of your patient. If I may answer any questions in the interim, please do not hesitate to contact me at any time (more content not included)... Normal [facility] Radiation Oncology Visiton 0 11-16-2023 Radiation Oncology Visit [facility] [address] [place] [address] OFFICE VISIT Date of Service: 11/16/23 1525 MR#: [id number] Acct: [id number] Name: FAM NUNEZ Rep #: [id number] : 1960 From: Jonathon Young DO Age/Sex: 63/M Location: [facility] Status: Signed Intake Vital Signs 09/24/23 06:23 11/16/23 15:29 Height 6 ft 6 ft Weight: 312 lb BMI 42.3 BP 116/84 H Blood Pressure Location Lt brachial Position Sitting Respiration 18 Pulse 79 Pulse Source Monitor Temp 97.8 F Temperature Source Temporal Artery Pulse Oximetry (%) 96 Oxygen Delivery Method room air Intake Visit Reasons: OTV Is patient in pain?: No Allergies No Known Allergies Allergy (Verified 11/16/23 15:28) Medications ???Medication ???Instructions ???Recorded ???Confirmed ???Type cholecalciferol (vitamin D3) 10 10 mcg PO DAILY 08/31/23 11/16/23 History mcg (400 unit) capsule fluoxetine 20 mg tablet 20 mg PO DAILY 09/17/23 11/16/23 History ibuprofen 400 mg tablet (IBU) 400 mg PO Q6H PRN PRN pain 09/17/23 11/16/23 History meloxicam 15 mg tablet 15 mg PO DAILY PRN PRN pain 09/17/23 11/16/23 History tamsulosin 0.4 mg capsule 0.4 mg PO BID 11/09/23 11/16/23 History PFSH PFSH Medical History Loss of hearing Wears glasses Wears dentures Cancer Alcohol use Diabetes Arthritis Back pain Heartburn CPAP (continuous positive airway pressure) dependence Former smoker History of pain when walking History of edema History of stress test Urinary incontinence Nocturia Dysuria Anxiety BPH (benign prostatic hyperplasia) Elevated PSA Abnormal pathology report from prostate needle biopsy Home Medications ???Medication ???Instructions ???Recorded ???Last Taken ???Type cholecalciferol (vitamin D3) 10 10 mcg PO DAILY 08/31/23 Unknown History mcg (400 unit) capsule fluoxetine 20 mg tablet 20 mg PO DAILY 09/17/23 Unknown History ibuprofen 400 mg tablet (IBU) 400 mg PO Q6H PRN PRN pain 09/17/23 Unknown History meloxicam 15 mg tablet 15 mg PO DAILY PRN PRN pain 09/17/23 Unknown History tamsulosin 0.4 mg capsule 0.4 mg PO BID 11/09/23 Unknown History Allergy/AdvReac Type Severity Reaction Status Date / Time No Known Allergies Allergy Verified 11/16/23 15:28 Family History Brother Prostate CA Other Heart disease Surgical History Hx of colonoscopy History of ERCP Hx of total knee arthroplasty History of inguinal hernia repair History of umbilical hernia repair History of laparoscopic cholecystectomy Social History Smoking Status: Former smoker alcohol intake: current alcohol intake frequency: holidays/special occasions only substance use type: does not use caffeine: Yes Diagnosis: Fam Nunez is a 63 year-old male diagnosed with 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 Plan: Plan was made to complete definitive radiation therapy consisting of 7000 cGy in 28 fractions to the prostate. Treatment Data: Treatment Site: Prostate Current total dose/Total dose planned: 4000 cGy / 7000 cGy Fraction number: Chemotherapy: none Subjective: Pain: 0 / 10 Fatigue: none Skin: no erythema, rash, desquamation GI: mild diarrhea this week, improved with one imodium/ no constipation. No rectal pain or bleeding. No bloating or increased gas : some increase in weak stream, incomplete emptying, frequency, mild discomfort, now flomax bid and improved some. No hematuria Objective: Weight: 312 lbs Physical Exam: Gen: NAD Skin: no erythema, rash, desquamation. Labs: None Assessment Plan Assessment/Plan (1) Cancer of prostate with intermediate recurrence risk (stage T2b-c or [place] 7 or PSA 10-20): PLAN: Plan Assessment: Tolerating treatment well overall.??? I reviewed and approved all treatment associated imaging. : worsening symptoms, will continue Flomax bid GI: mild diarrhea, imodium prn Plan: Continue treatment as planned.??? I have reviewed potential treatment associated toxicities as well as timing for resolution and management. Follow up next week or sooner if needed. Thank you for allowing me to participate in the management and care of your patient. If I may answer any questions in the interim, please do not hesitate to contact me at any time. Jonathon Young DO, MS Choral Director, Department of Radiation Oncology [facility] Codin (more content not included)... Normal [facility] Radiation Oncology Visiton 0 11-09-2023 Radiation Oncology Visit [facility] [address] [place] [address] OFFICE VISIT Date of Service: 11/09/23 1526 MR#: [id number] Acct: [id number] Name: VIVIENNEFAM ARIES Rep #: [id number] : 1960 From: Jonathon Young DO Age/Sex: 63/M Location: [facility] Status: Signed Intake Vital Signs 09/24/23 06:23 11/09/23 15:27 Height 6 ft 6 ft Weight: 311 lb 1 oz BMI 42.2 BP 133/86 H Blood Pressure Location Rt brachial Position Sitting Respiration 18 Pulse 74 Pulse Source Monitor Temp 97.7 F L Temperature Source Temporal Artery Pulse Oximetry (%) 95 Oxygen Delivery Method room air Intake Visit Reasons: OTV Is patient in pain?: Yes (knees) Allergies No Known Allergies Allergy (Verified 11/09/23 15:29) Medications ???Medication ???Instructions ???Recorded ???Confirmed ???Type cholecalciferol (vitamin D3) 10 10 mcg PO DAILY 08/31/23 11/09/23 History mcg (400 unit) capsule fluoxetine 20 mg tablet 20 mg PO DAILY 09/17/23 11/09/23 History ibuprofen 400 mg tablet (IBU) 400 mg PO Q6H PRN PRN pain 09/17/23 11/09/23 History meloxicam 15 mg tablet 15 mg PO DAILY PRN PRN pain 09/17/23 11/09/23 History tamsulosin 0.4 mg capsule 0.4 mg PO BID 11/09/23 11/09/23 History PFSH PFSH Medical History Loss of hearing Wears glasses Wears dentures Cancer Alcohol use Diabetes Arthritis Back pain Heartburn CPAP (continuous positive airway pressure) dependence Former smoker History of pain when walking History of edema History of stress test Urinary incontinence Nocturia Dysuria Anxiety BPH (benign prostatic hyperplasia) Elevated PSA Abnormal pathology report from prostate needle biopsy Home Medications ???Medication ???Instructions ???Recorded ???Last Taken ???Type cholecalciferol (vitamin D3) 10 10 mcg PO DAILY 08/31/23 Unknown History mcg (400 unit) capsule fluoxetine 20 mg tablet 20 mg PO DAILY 09/17/23 Unknown History ibuprofen 400 mg tablet (IBU) 400 mg PO Q6H PRN PRN pain 09/17/23 Unknown History meloxicam 15 mg tablet 15 mg PO DAILY PRN PRN pain 09/17/23 Unknown History tamsulosin 0.4 mg capsule 0.4 mg PO BID 11/09/23 Unknown History Allergy/AdvReac Type Severity Reaction Status Date / Time No Known Allergies Allergy Verified 11/09/23 15:29 Family History Brother Prostate CA Other Heart disease Surgical History Hx of colonoscopy History of ERCP Hx of total knee arthroplasty History of inguinal hernia repair History of umbilical hernia repair History of laparoscopic cholecystectomy Social History Smoking Status: Former smoker alcohol intake: current alcohol intake frequency: holidays/special occasions only substance use type: does not use caffeine: Yes Diagnosis: Fam Nunez is a 63 year-old male diagnosed with 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 Plan: Plan was made to complete definitive radiation therapy consisting of 7000 cGy in 28 fractions to the prostate. Treatment Data: Treatment Site: Prostate Current total dose/Total dose planned: 2750 cGy / 7000 cGy Fraction number: Chemotherapy: none Subjective: Pain: 0 / 10 Fatigue: none Skin: no erythema, rash, desquamation GI: no diarrhea/constipation. No rectal pain or bleeding. No bloating or increased gas : some increase in weak stream, incomplete emptying, frequency, mild discomfort, now flomax bid and improved some. No hematuria Objective: Weight: 311 lbs 1 oz Physical Exam: Gen: NAD Skin: no erythema, rash, desquamation. Labs: None Assessment Plan Assessment/Plan (1) Cancer of prostate with intermediate recurrence risk (stage T2b-c or [place] 7 or PSA 10-20): PLAN: Plan Assessment: Tolerating treatment well overall.??? I reviewed and approved all treatment associated imaging. : worsening symptoms, will continue Flomax bid Plan: Continue treatment as planned.??? I have reviewed potential treatment associated toxicities as well as timing for resolution and management. Follow up next week or sooner if needed. Thank you for allowing me to participate in the management and care of your patient. If I may answer any questions in the interim, please do not hesitate to contact me at any time. Jonathon Young DO, MS Choral Director, Department of Radiation Oncology [facility] Coding Level of Care Code Radiation Tx Management x5 (more content not included)... Normal [facility] Basophil percentageOrdered B y: Jonathon Young on 10-05-2023 Creatinine [Mass/Vol] 1.2 mg/dL 0.70-1.30 [facility] No Panel InformationOrdered By: Jonathon Young on 10-05-2023 Bedside Estimated GFR (eGFR) > 60.0000 mL/min >60 [facility] Basophil percentageOrdered B y: Jesus Almanza on 06-02-2023 Testosterone [Mass/Vol] 284 ng/dL [phone] [facility] Comment on above: Adult male reference interval is based on a population ofhealthy nonobese males (BMI <30) between 19 and 39 yearsold. soraya Espinoza.al. JCEM 2017,102;5017-3858. PMID:[id number]. Free testosterone percentage Ordered By: Jesus Almanza on 06-02-2023 Testosterone Free/Testosterone.tota l [Mass fraction] 1.37 % 1.50-4.20 [facility] No Panel InformationOrdered By: Jesus Almanza on 06-02-2023 Percent Free Prostate Specific Ag 1.47 ng/mL N/A [facility] Comment on above: Javier ECLIA methodol ogy. Prostate Specific Ag, Ultra-Sensitv 16.100 ng/mL 0.000-4.000 [facility] Comment on above: Javier ECLIA methodol ogy.According to the [place] [employer], Serum PSAshould decrease and remain at undetectable levels afterradical prostatectomy. The AUA defines biochemicalrecurrence as an initial PSA value 0.200 ng/mL or greaterfollowed by a subsequent confirmatory PSA value 0.200 ng/mLor greater. Values obtained with different assay methods orkits cannot be used interchangeably. Results cannot beinterpreted as absolute evidence of the presence or absenceof malignant disease. Serum or plasma free prostat e specific antigen/total prostate specific antigen ratioOrdered By: Jesus Almanza on 06-02-2023 Free PSA/Total PSA [Mass fraction] 9.1 % . [facility] Comment on above: The table below list s the probability of prostate cancer formen with non-suspicious TREV results and total PSA between4 and 10 ng/mL, by patient age (Jackie et al, MARKOS 1998,279:1542). % Free PSA 50-64 yr 65-75 yr 0.00-10.00% 56% 55% 10.01-15.00% 24% 35% 15.01-20.00% 17% 23% 20.01-25.00% 10% 20% >25.00% 5% 9%Please note: Jackie et al did not make specific recommendations regarding the use of percent free PSA for any other population of men.Performed at: - [facility] [id number] Director: Praful North PhD, Phone: [phone] at: - [facility] [id number] Director: Heather Romero MD, Phone: [phone] Serum or plasma testosterone free measurement (mass/volume)Ordered By: Jesus Almanza on 06-02-2023 Testosterone Free [Mass/Vol] 3.89 ng/dL 5.00-21.00 [facility] Basophil percentageOrdered B y: Dr. Almanza on 2022 Cholesterol [Mass/Vol] 158 mg/dL <200 [facility] Comment on above: <200 mg/dL Desirable 200-240 mg/dL Borderline >240 mg/dL High Risk Testosterone [Mass/Vol] 242.61 ng/dL [facility] Comment on above: CENTRAL 90% REFERENC E RANGES MALE AGE <50 197.44 - 669.58 ng/dL MALE AGE > or = 50 187.72 - 684.19 ng/dL FEMALE AGE <50 8.38 - 35.01 ng/dL FEMALE AGE > or = 50 <7.00 - 35.92 ng/dL Effective as of 01/21/21 Triglyceride [Mass/Vol] 219 mg/dL <199 [facility] Comment on above: The drugs N-Acetylcy steine and Metamizole may falsely depress this assay.Serum Triglycerides Reference Interval Normal <150 mg/dL Borderline high 150 - 199 mg/dL High 200 - 499 mg/dL Very High > or = 500 mg/dL Laboratory - Chemistry and C hemistry - challengeOrdered By: Dr. Almanza on 2022 Cobalamin (Vitamin B12) [Mass/Vol] 1035 pg/mL 211-911 [facility] No Panel InformationOrdered By: Dr. Almanza on 2022 Prostate Specific Antigen Screen 11.70 ng/mL 0.00-4.00 [facility] Comment on above: This test was perfor med using the TPSA assay method for the[facility] system. Values obtained with differentassay methods cannot be used interchangably.When changing PSA assays in the course of monitoring apatient, additional sequential testing should be carriedout to confirm baseline values. Vitamin D 25-Hydroxy 67.2 ng/mL [facility] Comment on above: Vitamin D 25(OH) Sta tus Range Deficiency <20 ng/mL (50nmol/L) Insufficiency 20 - 30 ng/mL (50 - 75 nmol/L) Sufficiency 30 - 100 ng/mL (75 - 250 nmol/L) Toxicity >100 ng/mL (>250 nmol/L) Serum or plasma cholesterol in HDL measurement (mass/volume)Ordered By: Dr. Almanza on 2022 Cholesterol in HDL [Mass/Vol] 36 mg/dL >40 [facility] Comment on above: The drugs N-Acetylcy steine and Metamizole may falsely depress this assay. Reference Range HDL <40 mg/dL Low HDL Cholesterol HDL >or= 60 mg/dL High HDL Cholesterol Serum or plasma cholesterol in VLDL measurement (mass/volume)Ordered By: Dr. Almanza on 2022 Cholesterol in VLDL [Mass/Vol] 44 mg/dL 5-40 [facility] Serum or plasma low density lipoprotein (LDL) cholesterol measurement (mass/volume)Ordered By: Dr. Almanza on 2022 Cholesterol in LDL [Mass/Vol] 78 mg/dL 0-130 [facility] Absolute lymphocyte countOrd ered By: Dr. Almanza on 07-28-2022 Lymphocytes Auto (Unsp spec) [#/Vol] 2.06 10*3/uL 0.83-4.51 [facility] Basophil percentageOrdered B y: Dr. Almanza on 07-28-2022 Basophils/100 WBC (Bld) 1.2 % 0-1 [facility] Bilirubin [Mass/Vol] 0.40 mg/dL 0.20-1.00 [facility] Comment on above: For patients on eltr ombopag therapy, use of Dimension [place] TBIL is not recommended. Chloride [Moles/Vol] 107 mmol/L 98-107 [facility] Eosinophils/100 WBC (Bld) 1.7 % 0-5 [facility] Glucose [Mass/Vol] 92 mg/dL 74-106 [facility] Neutrophils (Bld) [#/Vol] 3.1 10*3/uL 2.0-7.7 [facility] Neutrophils/100 WBC (Bld) 52.1 % 47-70 [facility] Potassium [Moles/Vol] 4.3 mmol/L 3.5-5.1 [facility] Protein [Mass/Vol] 7.2 g/dL 6.4-8.2 [facility] Sodium [Moles/Vol] 141 mmol/L 136-145 [facility] WBC (Bld) [#/Vol] 6.0 10*3/uL 4.4-11.0 [facility] Blood erythrocytes count (nu mber/volume)Ordered By: Dr. Almanza on 07-28-2022 RBC (Bld) [#/Vol] 4.94 10*6/uL 4.6-6.2 [facility] Blood hemoglobin measurement (mass/volume)Ordered By: Dr. Alamnza on 07-28-2022 Hemoglobin (Bld) [Mass/Vol] 14.6 g/dL 13.0-16.5 [facility] Blood lymphocytes/100 leukoc ytesOrdered By: Dr. Almanza on 07-28-2022 Lymphocytes/100 WBC (Bld) 34.6 % 19-41 [facility] Blood monocytes/100 leukocyt esOrdered By: Dr. Almanza on 07-28-2022 Monocytes/100 WBC (Bld) 10.1 % 0-10 [facility] Blood platelet mean volumeOr dered By: Dr. Almanza on 07-28-2022 Platelet mean volume (Bld) [Entitic vol] 9.8 fL 6.2-12.0 [facility] Determination of erythrocyte mean corpuscular volume (MCV)Ordered By: Dr. Almanza on 07-28-2022 MCV (RBC) [Entitic vol] 85.6 fL 80-94 [facility] Erythrocyte sedimentation ra teOrdered By: Dr. Almanza on 07-28-2022 ESR (Bld) [Velocity] 9 mm/h 0-20 [facility] Hematocrit Auto (Bld) [Volum e fraction]Ordered By: Dr. Almanza on 07-28-2022 Hematocrit (Bld) [Volume fraction] 42.3 % 40-54 [facility] Laboratory - Chemistry and C hemistry - challengeOrdered By: Dr. Almanza on 07-28-2022 ALP [Catalytic activity/Vol] 46 U/L 45-117 [facility] ALT [Catalytic activity/Vol] 25 U/L 16-61 [facility] CO2 [Moles/Vol] 25.0 mmol/L 21.0-32.0 [facility] Globulin (S) [Mass/Vol] 3.0 g/dL 2.2-4.2 [facility] Urea nitrogen/Creatinine [Mass ratio] 22.4 mg/mg 10-20 [facility] Laboratory - Hematology and Cell countsOrdered By: Dr. Almanza on 07-28-2022 Erythrocyte distribution width (RBC) [Entitic vol] 37.7 fL 35.1-43.9 [facility] Erythrocyte distribution width (RBC) [Ratio] 12.2 % 11.6-14.6 [facility] Immature granulocytes/100 WBC (Bld) 0.300 % 0.0-0.9 [facility] Comment on above: IG% - Immature Granu locytes (promyelocytes, myelocytes and metamyelocytes) > 1% indicates that a LEFT SHIFT is Present. MCH (RBC) [Entitic mass] 29.6 pg 27.0-32.0 [facility] Nucleated RBC/100 WBC (Bld) [Ratio] 0 % 0-5 [facility] MCHC Auto (RBC) [Mass/Vol]Or dered By: Dr. Almanza on 07-28-2022 MCHC (RBC) [Mass/Vol] 34.5 g/dL 32-36 [facility] No Panel InformationOrdered By: Dr. Almanza on 07-28-2022 Estimated GFR (MDRD) Amer 99 mL/min >60 [facility] Comment on above: GFR Calc Estimated GFR (MDRD) Non-Af Amer 82 mL/min >60 [facility] Comment on above: Non- GFR Calc Platelets bldOrdered By: Dr. Almanza on 07-28-2022 Platelets (Bld) [#/Vol] 257 10*3/uL 150-450 [facility] Serum or plasma albumin robbie urement (mass/volume)Ordered By: Dr. Almanza on 07-28-2022 Albumin [Mass/Vol] 4.2 g/dL 3.2-5.0 [facility] Serum or plasma albumin/glob ulin mass ratioOrdered By: Dr. Almanza on 07-28-2022 Albumin/Globulin [Mass ratio] 1.4 {ratio} 0.9-2.4 [facility] Serum or plasma calcium robbie urement (mass/volume)Ordered By: Dr. Almanza on 07-28-2022 Calcium [Mass/Vol] 9.8 mg/dL 8.5-10.1 [facility] Serum or plasma creatinine m easurement (mass/volume)Ordered By: Dr. Almanza on 07-28-2022 Creatinine [Mass/Vol] 0.98 mg/dL 0.70-1.30 [facility] Comment on above: The validity of the calculated GFR & GFRAA in patients over 70 years has not been determined. Clinical correlation is essential. Serum or plasma urea nitroge n measurement (mass/volume)Ordered By: Dr. Almanza on 07-28-2022 Urea nitrogen [Mass/Vol] 22 mg/dL 7-18 [facility] Thin prep Papanicolaou smear with manual screeningOrdered By: Dr. Almanza on 07-28-2022 Thin prep Papanicolaou smear with manual screening 19 U/L 15-37 [facility] Thin prep Papanicolaou smear with manual screening 9 5-15 [facility] Absolute lymphocyte countOrd ered By: Kiko Selby on 07-16-2022 Lymphocytes Auto (Unsp spec) [#/Vol] 1.64 10*3/uL 0.83-4.51 [facility] Basophil percentageOrdered B y: Kiko Selby on 07-16-2022 Basophils/100 WBC (Bld) 0.6 % 0-1 [facility] Chloride [Moles/Vol] 112 mmol/L 98-107 [facility] Eosinophils/100 WBC (Bld) 1.1 % 0-5 [facility] Glucose [Mass/Vol] 107 mg/dL 74-106 [facility] Comment on above: Fasting Glucose resu lt from 100 to 125 mg/dL suggests IMPAIRED HOMEOSTASIS per A.D.A. criteria. Neutrophils (Bld) [#/Vol] 5.9 10*3/uL 2.0-7.7 [facility] Neutrophils/100 WBC (Bld) 69.4 % 47-70 [facility] Potassium [Moles/Vol] 4.0 mmol/L 3.5-5.1 [facility] Sodium [Moles/Vol] 142 mmol/L 136-145 [facility] WBC (Bld) [#/Vol] 8.5 10*3/uL 4.4-11.0 [facility] Blood erythrocytes count (nu mber/volume)Ordered By: Kiko Selby on 07-16-2022 RBC (Bld) [#/Vol] 5.22 10*6/uL 4.6-6.2 [facility] Blood hemoglobin measurement (mass/volume)Ordered By: Kiko Selby on 07-16-2022 Hemoglobin (Bld) [Mass/Vol] 15.5 g/dL 13.0-16.5 [facility] Blood lymphocytes/100 leukoc ytesOrdered By: Kiko Selby on 07-16-2022 Lymphocytes/100 WBC (Bld) 19.4 % 19-41 [facility] Blood monocytes/100 leukocyt esOrdered By: Kiko Selby on 07-16-2022 Monocytes/100 WBC (Bld) 9.3 % 0-10 [facility] Blood platelet mean volumeOr dered By: Kiko Selby on 07-16-2022 Platelet mean volume (Bld) [Entitic vol] 9.8 fL 6.2-12.0 [facility] Determination of erythrocyte mean corpuscular volume (MCV)Ordered By: Kiko Selby on 07-16-2022 MCV (RBC) [Entitic vol] 89.5 fL 80-94 [facility] Hematocrit Auto (Bld) [Volum e fraction]Ordered By: Kiko Selby on 07-16-2022 Hematocrit (Bld) [Volume fraction] 46.7 % 40-54 [facility] Laboratory - Chemistry and C hemistry - challengeOrdered By: Kiko Selby on 07-16-2022 CK [Catalytic activity/Vol] 227 U/L 39-308 [facility] CO2 [Moles/Vol] 24.0 mmol/L 21.0-32.0 [facility] Magnesium [Mass/Vol] 2.3 mg/dL 1.6-2.6 [facility] Urea nitrogen/Creatinine [Mass ratio] 16.9 mg/mg 10-20 [facility] Laboratory - Hematology and Cell countsOrdered By: Kiko Selby on 07-16-2022 Erythrocyte distribution width (RBC) [Entitic vol] 40.5 fL 35.1-43.9 [facility] Erythrocyte distribution width (RBC) [Ratio] 12.4 % 11.6-14.6 [facility] Immature granulocytes/100 WBC (Bld) 0.200 % 0.0-0.9 [facility] Comment on above: IG% - Immature Granu locytes (promyelocytes, myelocytes and metamyelocytes) > 1% indicates that a LEFT SHIFT is Present. MCH (RBC) [Entitic mass] 29.7 pg 27.0-32.0 [facility] Nucleated RBC/100 WBC (Bld) [Ratio] 0 % 0-5 [facility] MCHC Auto (RBC) [Mass/Vol]Or dered By: Kiko Selby on 07-16-2022 MCHC (RBC) [Mass/Vol] 33.2 g/dL 32-36 [facility] No Panel InformationOrdered By: Kiko Selby on 07-16-2022 Estimated Creatinine Clearance Calc 94.46 ml/min [facility] Estimated GFR (MDRD) Amer 111 mL/min >60 [facility] Comment on above: GFR Calc Estimated GFR (MDRD) Non-Af Amer 92 mL/min >60 [facility] Comment on above: Non- GFR Calc Troponin I High Sensitivity 4 pg/mL 3.0-78.0 [facility] Comment on above: Please Note: New Liza t Units and Gender Specific Reference Ranges. For more information see Policy Stat Procedure [place] High Sensitivity Troponin (TNIH) and attachments. Platelets bldOrdered By: Davdi Selby on 07-16-2022 Platelets (Bld) [#/Vol] 244 10*3/uL 150-450 [facility] Serum or plasma calcium robbie urement (mass/volume)Ordered By: Kiko eSlby on 07-16-2022 Calcium [Mass/Vol] 9.9 mg/dL 8.5-10.1 [facility] Serum or plasma creatinine m easurement (mass/volume)Ordered By: Kiko Selby on 07-16-2022 Creatinine [Mass/Vol] 0.89 mg/dL 0.70-1.30 [facility] Comment on above: The validity of the calculated GFR & GFRAA in patients over 70 years has not been determined. Clinical correlation is essential. Serum or plasma urea nitroge n measurement (mass/volume)Ordered By: Kiko Selby on 07-16-2022 Urea nitrogen [Mass/Vol] 15 mg/dL 01-12 [facility] Thin prep Papanicolaou smear with manual screeningOrdered By: Kiko Selby on 07-16-2022 Thin prep Papanicolaou smear with manual screening 6 11-09 [facility] Vital Signs Date Time Vital Sign Value Performing Clinician Faci lity 09-07-2024 15:29-0400 Body height 182.[address] Jeferson Almanza MD Work Phone: [facility] 09-07-2024 15:29-0400 Body mass index (BMI) [Ratio] 44.6 kg/m2 Dr. Jeferson Almanza MD Work Phone: [phone] [place] [address] 09-07-2024 15:29-0400 Body temperature 97.4 [degF] Dr. Jeferson Almanza MD Work Phone: [phone] [place] [address] 09-07-2024 15:29-0400 Body weight 149.[address] Jeferson Almanza MD Work Phone: [facility] 09-07-2024 15:29-0400 Diastolic blood pressure 85 mm[Hg] Dr. Jeferson Almanza MD Work Phone: [facility] 09-07-2024 15:29-0400 Heart rate 81 /min Dr. Jeferson Almanza MD Work Phone: [facility] 09-07-2024 15:29-0400 Respiratory rate 18 /min Dr. Jeferson Almanza MD Work Phone: [facility] 09-07-2024 15:29-0400 SaO2% (BldA) [Mass fraction] 96 % Dr. Jeferson Almanza MD Work Phone: [facility] 09-07-2024 15:29-0400 Systolic blood pressure 133 mm[Hg] Dr. Jeferson Almanza MD Work Phone: [facility] 09-24-2023 07:51-0400 Body temperature 97.6 [degF] Dr. Jesus Almanza Work Phone: [facility] 09-24-2023 07:51-0400 Diastolic blood pressure 69 mm[Hg] Dr. Jesus Almanza Work Phone: [facility] 09-24-2023 07:51-0400 Heart rate 64 /min Dr. Jesus Almanza Work Phone: [facility] 09-24-2023 07:51-0400 Respiratory rate 16 /min Dr. Jesus Almanza Work Phone: [facility] 09-24-2023 07:51-0400 SaO2% (BldA) [Mass fraction] 99 % Dr. Jesus Almanza Work Phone: [facility] [facility] 07:51-0400 Systolic blood pressure 102 mm[Hg] Dr. Jesus Almanza Work Phone: [phone] [place] [address] 09-24-2023 06:23-0400 Body height 182.[address] Jesus Almanza Work Phone: [facility] 09-24-2023 06:23-0400 Body mass index (BMI) [Ratio] 42 kg/m2 Dr. Jesus Almanza Work Phone: [facility] 09-24-2023 06:23-0400 Body weight 140.[address] Jesus Almanza Work Phone: [phone] [address] 09-07-2023 15:17-0400 Body mass index (BMI) [Ratio] 41.8 kg/m2 Dr. Jesus Almanza Work Phone: [facility] 09-07-2023 15:17-0400 Body temperature 97.6 [degF] Dr. Jesus Almanza Work Phone: [facility] 09-07-2023 15:17-0400 Body weight 139.[address] Jesus Almanza Work Phone: [facility] 09-07-2023 15:17-0400 Diastolic blood pressure 78 mm[Hg] Dr. Jesus Almanza Work Phone: [facility] 09-07-2023 15:17-0400 Heart rate 65 /min Dr. Jesus Almanza Work Phone: [facility] 09-07-2023 15:17-0400 Respiratory rate 18 /min Dr. Jesus Almanza Work Phone: [facility] 09-07-2023 15:17-0400 SaO2% (BldA) [Mass fraction] 92 % Dr. Jesus Almanza Work Phone: [facility] 09-07-2023 15:17-0400 Systolic blood pressure 122 mm[Hg] Dr. Jesus Almanza Work Phone: [facility] 07-16-2022 23:15-0500 Diastolic blood pressure 72 mm[Hg] [facility] 07-16-2022 23:15-0500 Heart rate 69 /min [facility] 07-16-2022 23:15-0500 Respiratory rate 15 /min [facility] 07-16-2022 23:15-0500 SaO2% (BldA) [Mass fraction] 98 % [facility] 07-16-2022 23:15-0500 Systolic blood pressure 117 mm[Hg] [facility] 07-16-2022 21:44-0500 Body height 182.88 cm [facility] 07-16-2022 21:44-0500 Body mass index (BMI) [Ratio] 40.6 kg/m2 [facility] 07-16-2022 21:44-0500 Body temperature 97.5 [degF] [facility] 07-16-2022 21:44-0500 Body weight 136 kg [facility] Encounters Encounter Date Encounter Type Care Provider Facility Start: 10-27-2024 End: 10-27-[address] Jeferson Almanza MD Work Phone: [facility] Work Phone: Start: 10-27-2024 End: 10-27-[address] Jeferson Almanza MD -Laboratory Work Phone: Start: 10-27-2024 End: 10-27-2024 ambulatory Jeferson Almanza Facility:[facility] Start: 10-13-2024 End: 10-13-[address] Jeferson Almanza MD -Laboratory, [facility] Start: 10-13-2024 End: 10-13-2024 ambulatory Jeferson Almanza Facility:[facility] Start: 09-07-2024 End: 09-07-[address] Jonathon Young [facility] Work Phone: Start: 09-07-2024 End: 09-07-2024 ambulatory Jeferson Almanza Facility:[facility] Start: 09-07-[address] Jonathon Lynn on [facility] Start: 05-30-2024 End: 05-30-2024 ambulatory Jeferson Almanza Facility:[facility] Start: 05-01-2024 End: 05-01-2024 ambulatory Jeferson Almanza Facility:[facility] Start: 04-21-2024 End: 04-21-2024 Emergency department patient visit Shay Amaya Facility:[facility] Start: 02-29-2024 End: 02-29-2024 ambulatory Jeferson Almanza Facility:[facility] Start: 12-28-2023 End: 12-28-2023 ambulatory Jeferson Almanza Facility:[facility] Start: 12-02-2023 ambulatory Jeferson Almanza Faci lity:[facility] Start: 11-30-2023 End: 11-30-2023 ambulatory Jeferson Almanza Facility:[facility] Start: 11-23-2023 End: 11-23-2023 ambulatory Jeferson Almanza Facility:[facility] Start: 11-16-2023 End: 11-16-2023 ambulatory Jeferson Almanza Facility:[facility] Start: 11-09-2023 End: 11-09-2023 ambulatory Jeferson Almanza Facility:[facility] Start: 10-05-2023 Non-patient / Non-visit Dr. Jeferson Almanza Work Phone: [facility] Start: 10-05-[address] Krishna Almanza Work Phone: [facility]Radiation [facility]cology Start: 10-05-2023 End: 10-05-[address] Jeferson Almanza Work Phone: [facility] Work Phone: Start: 10-05-2023 End: 10-05-[address] Jeferson Almanza Work Phone: [facility]MRI - [facility] Work Phone: Start: 09-24-2023 End: 09-24-2023 Admission to same day surgery center Dr. Jesus Almanza Work Phone: [facility] Start: 09-24-2023 End: 09-24-[address] Jesus Almanza Work Phone: [facility] Work Phone: Start: 09-07-2023 End: 09-07-[address] Jesus Almanza Work Phone: [facility] Work Phone: Start: 08-25-2023 End: 08-25-2023 ambulatory [facility] Work Phone: Start: 08-25-2023 End: 08-25-2023 Patient encounter procedure [facility]-Nuclear Medicine, [facility] Work Phone: Start: 08-10-2023 End: 08-10-2023 ambulatory [facility] Work Phone: Start: 08-10-2023 End: 08-10-2023 Patient encounter procedure [facility]-Laboratory, Specimen Work Phone: Start: 06-02-2023 End: 06-02-2023 ambulatory [facility] Work Phone: Start: 06-02-2023 End: 06-02-2023 Patient encounter procedure [facility]-Labor[facility], [facility] Start: 01-20-2023 End: 01-20-2023 ambulatory [facility] Work Phone: Start: 01-20-2023 End: 01-20-2023 Patient encounter procedure [facility] Work Phone: Start: 2022 End: 2022 ambulatory [facility] Work Phone: Start: 2022 End: 2022 [facility] Start: 07-28-2022 End: 07-28-2022 ambulatory [facility] Work Phone: Start: 07-28-2022 End: 07-28-2022 Patient encounter procedure [facility] Start: 07-24-2022 End: 07-24-2022 ambulatory [facility] Work Phone: Start: 07-24-2022 End: 07-24-2022 Patient encounter procedure [facility] Start: 07-16-2022 End: 07-16-2022 Emergency department patient visit [facility]Emergency Department Procedures Date Procedure Procedure Detail Performing Clinician Start: 09-07-2024 Assay of prostate sp ecific antigen total Dr. Jeferson Almanza MD Work Phone: Comment on above: This test was perfor med using the [employer] tPSA method. Measured values of a patient sample can vary depending on the testing procedure used. PSA values determined on patient samples by different testing procedures cannot be used interchangeably. If there is a change in PSA assays while monitoring therapy, sequential testing should be performed to confirm baseline values. Start: 10-05-2023 MRI of pelvis with contrast Dr. Jeferson Almanza Work Phone: Start: 09-24-2023 Space OAR (Not Applicable) Dr. Jesus Almanza Work Phone: Start: 08-25-2023 Radionuclide whole b samia bone study Start: 01-20-2023 Radiologic examinati on of knee Start: 01-20-2023 X-ray of cervical spine Start: 07-24-2022 Diagnostic radiograp hy of abdomen Start: 07-16-2022 Plain chest X-ray Plan of Treatment Date Care Activity Detail Author Start: 09-24-2023 Anesthesia anorectal procedure ANESTH ANORECTAL SURGERY [facility] Start: 09-24-2023 Plmt interstitial dev radiat tx prostate 1/mult PLACE RT DEVICE/MARKER PROS [facility] Start: 09-24-2023 Transperineal plmt biodegradable matrl 1/software applications engineer njx TPRNL PLMT BIODEGRDABL MATRL [facility] Start: 09-24-2023 Patient discharge [facility] Start: 09-24-2023 Ambulation without limitation [facility] Start: 09-24-2023 Medical regimen orders management [facility] Start: 09-24-2023 Medication education [facility] Start: 09-24-2023 Taking patient vital signs [facility] Start: 09-24-2023 [facility] Free:total prostate specific antigen ratio [facility] Patient Education Dizziness Sujatha ting Causes ED Chest Pain, Uncertain Cause [facility] Work Phone: Patient referral [facility] Work Phone: Prostate specific Ag [Mass/volume] in Serum or Plasma [facility] Prostate Specific Ag Free [Mass/volume] in Serum or Plasma [facility] Prostate specific an tigen measurement [facility] Testosterone Free [Mass/volume] in Serum or Plasma [facility] Testosterone measurement [facility] Payers Date Payer Category Payer Self-pay [id number] 2023 Private Health Insurance [id number] 2012 Unknown [id number] Unknown [id number] 2.16.8 [id number] Unknown [id number] 2.16.8 [id number] Unknown [id number] 2.16.8 [id number] Unknown [id number] 2.16.8 [id number] Unknown [id number] 2.16.8 [id number] Unknown [id number] 2.16.8 [id number] Unknown [id number] 2.16.8 [id number] Unknown [id number] 2.16.8 [id number] Unknown [id number] 2.16.8 [id number] Unknown [id number] 2.16.8 [id number] Unknown [id number] 2.16.8 [id number] Unknown [id number] 2.16.8 [id number] Unknown [id number] 2.16.8 [id number] Unknown [id number] 2.16.8 [id number] Social History Date Type Detail Facility Start: 07-16-2022 End: 09-17-2023 Tobacco smoking status NHIS Unknown if ever smoked [facility] Start: 03-14-2016 Occasional [facility] Start: 03-14-2016 None [facility] Start: 03-14-2016 Spouse/ Signif icant Other [facility] Start: 03-14-2016 Non-smoker [facility] Start: 1960 Sex Assigned At Male W [facility] Start: 04-21-2024 Tobacco smoking status NHIS Ex-smoker (finding) [facility] Medical Equipment Procedure Code Equipment Code Equipment Origin al Text Equipment Identifier Dates MARKERS, FIDUCIAL GOLD FDA St art: 09-24-2023 Radiotherapy protection spacer ([id number] FDA Start: 09-24-2023 MARKERS, FIDUCIAL GOLD FDA St art: 09-24-2023 Goals Date Patient Goal Desired Activity /State Mental Status Date Assessment Result Facility 09-24-2023 Cognitive function Level Of Cons ciousness Follows Commands;Drowsy [facility] Work Phone: 09-24-2023 Cognitive function Voice/Name [facility] Work Phone: 07-16-2022 Cognitive function Level Of Cons ciousness Awake;Alert;Appropriate;Follow s Commands [facility] Work Phone: Evaluation note 09-07-2024 Note Date & Type Note Facility 09-07-2024 Evaluation note Diagnosis Onset Date Resolution Cancer of prostate with intermediate recurrence risk (stage T2b-c or Gleaso acute September 07, 2024 3:03pm [facility] Work Phone: Procedure note 09-24-2023 Note Date & Type Note Facility 09-24-2023 Procedure note [facility] Discharge summary Note Date & Type Note Facility Discharge summary Note Date/Time September 24, 2023 7:38am [facility] Medical Records Department [address] [place] [address] Instructions for Home/Discharge Instructions 09/24/23 0738 MR#: [id number] Acct: [id number] Name: FAM NUNEZ Rep #:[id number] : [id number] 63 From: Laith Kelly MD PCP: Dr. Jesus Almanza MD Status: REG [facility] Discharge Instructions Diet Discharge Diet: No restrictions Activity Discharge Activity: Return to Normal Activity and May Not Drive (while taking narcotic pain medications.) Dressing / Incision Call your doctor if you observe: Fever of 101 or Higher Follow Up Care Please Follow Up With: Laith Kelly MD When: Call [phone] for an appointment Test Results: Test results from this visit will be discussed in further detail at your follow-up appointment, if applicable. Discharge Plan Admission Primary Reason for Your Visit: Prostate cancer placement of spacer gel, markers Attending Provider: Laith Kelly Primary Care Provider: Jesus Almanza Discharge Orders/Prescriptions Prescriptions: New ciprofloxacin HCl [Cipro] 500 mg tablet 500 mg PO BID Qty: 6 0RF Continued cholecalciferol (vitamin D3) 10 mcg (400 unit) capsule 10 mcg PO DAILY meloxicam 15 mg tablet 15 mg PO DAILY PRN PRN (Reason: pain) Hold Instructions: pt stopped per self, states got rash. fluoxetine 20 mg tablet 20 mg PO DAILY tamsulosin 0.4 mg capsule 0.4 mg PO QHS ibuprofen [IBU] 400 mg tablet 400 mg PO Q6H PRN PRN (Reason: pain) Referrals / Follow Up: Jesus Almanza MD [Primary Care Provider] - Laith Kelly MD [Med Staff - Active Staff] - Disposition Discharge Orders: Discharge Patient (Routine); Ordered 09/24/23 Ordered By: Dr. Laith Kelly 09/24/23 0738<Electronically signed by Laith Kelly MD>Laith Kelly MD CC: Dr. Jesus Almanza MD ~ Signed [facility] Work Phone: Evaluation note Note Date & Type Note Facility Evaluation note No assessment information availa ble [facility] Work Phone: Evaluation note Note Date & Type Note Facility Evaluation note Diagnosis Onset Date [id number] acute [facility] Work Phone: History and physical note Note Date & Type Note Facility History and physical note Note Date/Time September 24, 2023 7:38am [facility] Medical Records Department [address] [place] [id number] History & Physical Exam 09/24/23 0737 MR#: [id number] Acct: [id number] Name: FAM NUNEZ Rep #:[id number] : 1960 63 From: Laith Kelly MD PCP: Dr. Jesus Almanza MD Status: [facility] Location: [place] [address] HPI - General General Date of Service: 09/24/23 HPI Narrative FAM NUNEZ, is a 63 M who presents for placement of gold markers and spacer gel he has intermediate risk prostate cancer plan to place these markers and gel andhe will be back in the office for hormone therapy as well [facility] Medical History (Updated 09/17/23 @ 10:23 by Savanah Rehman) Abnormal pathology report from prostate needle biopsy Alcohol use Anxiety Arthritis Back pain BPH (benign prostatic hyperplasia) Cancer CPAP (continuous positive airway pressure) dependence Diabetes Dysuria Elevated PSA Former smoker Heartburn History of edema History of pain when walking History of stress test Loss of hearing Nocturia Urinary incontinence Wears dentures Wears glasses Home Medications cholecalciferol (vitamin D3) 10 mcg (400 unit) capsule 10 mcg PO DAILY 08/31/23 [History Last Taken Unknown] fluoxetine 20 mg tablet 20 mg PO DAILY 09/17/23 [History Last Taken Unknown] ibuprofen 400 mg tablet (IBU) 400 mg PO Q6H PRN PRN pain 09/17/23 [History Last Taken Unknown] meloxicam 15 mg tablet 15 mg PO DAILY PRN PRN pain 09/17/23 [History Last Taken Unknown] tamsulosin 0.4 mg capsule 0.4 mg PO QHS 09/17/23 [History Last Taken Unknown] ciprofloxacin HCl 500 mg tablet (Cipro) 500 mg PO BID #6 tabs 09/24/23 [Rx Last Taken Unknown] Allergy/AdvReac Type Severity Reaction Status Date / Time No Known Allergies Allergy Verified 09/24/23 06:22 Family History Brother Prostate CA Other Heart disease Surgical History (Updated 09/17/23 @ 10:23 by Savanah Rehman) History of ERCP History of inguinal hernia repair History of laparoscopic cholecystectomy History of umbilical hernia repair Hx of colonoscopy Hx of total knee arthroplasty Social History Smoking Status: Former smoker alcohol intake: current alcohol intake frequency: holidays/special occasions only substance use type: does not use caffeine: Yes Vital Signs Vital Signs Vital Signs: 09/24/23 06:23 09/24/23 06:23 Temperature 97.1 F L Temperature Source Temporal Pulse Rate 61 Respiratory Rate 16 Respiratory Pattern Normal Blood Pressure 119/79 Blood Pressure Mean 92 Blood Pressure Source Monitor Blood Pressure Position Semi-Fowlers Blood Pressure Location Left Arm Pulse Ox 98 Oxygen Delivery Method Room Air Weight Weight: 140.5 kg Body Mass Index (BMI) 42.0 09/24/23 0738 <Electronically signed by Laith Kelly MD> Cosigner Signature (if applicable): CC: Dr. Jesus Almanza MD; Dr. Laith Kelly MD~ Signed [facility] Work Phone: Hospital Discharge instructions Note Date & Type Note Facility Hospital Discharge instructions Additional Instructions Implant Used?: Yes [facility] Work Phone: Reason for referral (narrative) Note Date & Type Note Facility Reason for referral (narrative) No reason for referral information available [facility] Work Phone: Chief Complaint and Reason for Visit Chief Complaint general illness EORDER Chief Complaint EORDER Chief Complaint PROSTATE CA Chief Complaint PROSTATE CA CONSULT - PROSTATE Space OAR gel and Gold Markers Placement Reason for Visit [id number] Chief Complaint PROSTATE CA CONSULT - PROSTATE Space OAR gel and Gold Markers Placement PROSTATE CA, EVAL EXTENT OF DISEASE CONSULT - PROSTATE Reason for Visit [id number] Chief Complaint Admit Date CONSULT - PROSTATE September 07, 2024 3:0 0pm 3 MONTH F/U PROSTATE, PSA PRIOR September 072024 3:03pm Reason for Visit Admit Date Cancer of prostate with inte rmediate recurrence risk (stage T2b-c or Gleaso September 07, 2024 3:03pm Family History No Family History Records Found Relationship Condition Age at Onset Recorded Date/T denice Unknown Family History?No pe rtinent history Unknown March 14, 2016 9:10am Family History?No pe rtinent history Unknown March 14, 2016 9:10am Relationship Condition Age at Onset Recorded Date/T denice Unknown Family History?No pe rtinent history Unknown March 14, 2016 10:10am Family History?No pe rtinent history Unknown March 14, 2016 10:10am Relationship Condition Age at Onset Recorded Date/T denice Not Specified Cardiac disease Unknown brother Malignant neoplasm of prostate Unknown Advance Directives No Advanced Directives Records Found Advance Directive Response Recorded Date/ Time Advance Directives No April 10, 2016 6:18am Living Will No July 16 9:47pm Power of Bottle Capper No July 16, 2022 9:47pm Advance Directive Response Recorded Date/ Time Advance Directives No April 10, 2016 7:18am Living Will No July 16 10:47pm Power of Bottle Capper No July 16, 2022 10:47pm Advance Directive Response Recorded Date/ Time Advance Directives No April 10, 2016 7:18am Living Will No September 17, 2023 10:13am Power of Bottle Capper No September 16 10:13am Advance Directive Response Recorded Date/ Time Living Will No September 17, 2023 10:13am Do you have a Healthcare Power of Bottle Capper? No September 17, 2023 10:13am Advance Directives No April 10, 2016 7:18am Summary Purpose Additional Source Comments Care Teams (unrecognized sec tion and content) Team Status: Active Member Role Status Dates Dr. Jesus Almanza MD Family Provider Active Dr. Jesus Almanza MD Primary Care Provider Activ e Team Status: Inactive Member Role Status Dates Dr. Jesus Almanza MD Primary Care Provider Activ e Dr. Kiko Selby DO Attending Provider, Emergency Pr ovider Active Team Status: Inactive Member Role Status Dates Dr. Jesus Almanza MD Primary Care Provider, Attending Provider, Referring Provider Active Team Status: Active Member Role Status Dates Dr. Jesus Almanza MD Primary Care Provider, Attending Provider, Referring Provider Active Team Status: Inactive Member Role Status Dates Dr. Jesus Almanza MD Primary Care Provider, Atte nding Provider Active Team Status: Inactive Member Role Status Dates Dr. Jesus Almanza MD Primary Care Provider Activ e Dr. Laith Kelly MD Attending Provider, Referr ing Provider Active Team Status: Inactive Member Role Status Dates Dr. Jesus Almanza MD Primary Care Provider Activ e Dr. Jonathon Young DO Attending Provider Active Dr. Laith Kelly MD Referring Provider Active Team Status: Inactive Member Role Status Dates Dr. Jesus Almanza MD Primary Care Provider, Refe rring Provider Active Dr. Laith Kelly MD Attending Provider Active Team Status: Active Member Role Status Dates Dr. Jeferson Almanza MD Family Provider Active Dr. Jeferson Almanza MD Primary Care Provider Acti ve Team Status: Inactive Member Role Status Dates Dr. Jeferson Almanza MD Primary Care Provider Acti ve Dr. Jonathon Young DO Attending Provider Active Dr. Laith Kelly MD Referring Provider Active Team Status: Active Member Role Status Dates Dr. Jeferson Almanza MD Primary Care Provider Acti ve amish Attending Provider Active Team Status: Inactive Member Role Status Dates Dr. Jeferson Almanza MD Primary Care Provider Acti ve Dr. Laith Kelly MD Attending Provider, Referr ing Provider Active Team Status: Active Member Role Status Dates Dr. Jeferson Almanza MD Primary Care Provider Acti ve Dr. Jonathon Young DO Attending Provider Active Dr. Laith Kelly MD Referring Provider Active Team Status: Inactive Member Role Status Dates Dr. Jeferson Almanza MD Primary Care Provider, Ref erring Provider Active Dr. Laith Kelly MD Attending Provider Active Team Status: Inactive Member Role Status Dates Dr. Jeferson Almanza MD Primary Care Provider Acti ve Dr. Jonathon Young DO Attending Provider, Referring P niki Active Team Status: Active Member Role Status Dates Dr. Jeferson Almanza MD Primary Care Provider Acti ve Team Status: Active Member Role Status Dates Dr. Jeferson Almanza MD Primary Care Provider Acti ve Start: September 07, 2024 Dr. Jonathon Young DO Attending Provider Active Start: September 07, 2024 Dr. Laith Kelly MD Referring Provider Active Start: September 07, 2024 Team Status: Inactive Member Role Status Dates Dr. Jeferson Almanza MD Primary Care Provider Acti ve Start: September 07, 2024 End: September 07, 2024 Dr. Jeferson Almanza MD Referring Provider Active Start: September 07, 2024 End: September 07, 2024 Dr. Jonathon Young DO Attending Provider Active Start: September 07, 2024 End: September 07, 2024 Team Status: Inactive Member Role Status Dates Dr. Jeferson Almanza MD Primary Care Provider Acti ve Start: October 13, 2024 End: October 13, 2024 Dr. Jeferson Almanza MD Attending Provider Active Start: October 13, 2024 End: October 13, 2024 Dr. Jeferson Almanza MD Referring Provider Active Start: October 13, 2024 End: October 13, 2024 Team Status: Inactive Member Role Status Dates Dr. Jeferson Almanza MD Primary Care Provider Acti ve Start: October 27, 2024 End: October 27, 2024 Dr. Jeferson Almanza MD Attending Provider Active Start: October 27, 2024 End: October 27, 2024 Dr. Jeferson Almanza MD Referring Provider Active Start: October 27, 2024 End: October 27, 2024 Goals (unrecognized section and content) Goals may be documented in a n alternate sectionGoals may be documented in an alternate sectionGoals may be documented in an alternate sectionGoals may be documented in an alternate sectionGoals may be documented in an alternate sectionGoals may be documented in an alternate sectionGoals may be documented in an alternate sectionGoals may be documented in an alternate section (unrecognized sect ion and content) No Status Records Found INFORMATION SOURCE (unrecogn ized section and content) DATE CREATED AUTHOR 11/04/2024 [facility] FOR RECORDS PERTAINING TO PATIENTS WHO ARE OR HAVE BEEN ENROLLED IN A CHEMICAL DEPENDENCY/SUBSTANCEABUSE PROGRAM, SOME INFORMATION MAY BE OMITTED. This clinical summary was aggregated from multiple sources. Caution should be exercised in using it in the provision of clinical care. This summary normalizes information from multiple sources, and as a consequence, information in this document may materially change the coding, format and clinical context of patient data. In addition, data may be omitted in some cases. CLINICAL DECISIONS SHOULD BE BASED ON THE PRIMARY CLINICAL RECORDS. [employer] [facility]. provides no warranty or guarantee of the accuracy or completeness of information in this document.
[2025-02-12 07:11] LABS: PSA,Total- Diagnostic 0.02 ng/mL (0.00-4.00)
== END | disposition home or self-care (01) ==
PROVIDERS: PCP Family Medicine; Referring Provider Urology; Visit Provider Urology
DX: C61 Malignant neoplasm of prostate (principal)
CPT/HCPCS: 36415; 84153